=== PATIENT | male | born 1945 | race Caucasian/White ===

== ENCOUNTER 2016-12-14 17:03 | Inpatient (IN) ==
--- NOTE | 2016-12-14 18:14 | Hospitalist History & Physical ---
Assessment and Plan (1) Anemia Status: Acute Assessment and plan: H/H stable at the time of presentation at 10.5/32.0; this may trend down. We obtain serial H/H; may transfuse if needed. Current Visit: No Qualifiers: Anemia type: unspecified type Qualified Code(s): D64.9 - Anemia, unspecified (2) DVT prophylaxis Status: Acute Assessment and plan: SCD's ordered. Current Visit: No (3) GI bleed Status: Acute Assessment and plan: Per patient report, this has happened in the past. This may be attributed to his diverticulitis or the use of Plavix. We will consult GI, start PPI's and hold NPO for further recommendations. Current Visit: No Qualifiers: GI bleed type/associated pathology: melena Qualified Code(s): K92.1 - Melena (4) Chronic renal insufficiency Status: Chronic Assessment and plan: BUN/Creatinine at 39/1.8 this is noted improvement from his previous numbers on 11/19 of 48/1.90. We will monitor. Current Visit: No Qualifiers: Chronic kidney disease stage: unspecified stage Qualified Code(s): N18.9 - Chronic kidney disease, unspecified (5) History of coronary artery bypass graft Status: Chronic Assessment and plan: The patient is currently on Plavix prophylactically; we will hold for now and consult cardiology to evaluate. Current Visit: No History of Present Illness Chief complaint: rectal bleeding History of present illness: This is a very pleasant 71 year old male that presented to the ED at [facility] as a lateral transfer from [facility] for evaluation of rectal bleeding. The patient has very complex medical history significant for cerebral vascular accident, congestive heart failure, coronary artery disease, dyslipidemia, myocardial infarction, chronic obstructive pulmonary disease, diverticulitis, gastrointestinal bleed, insulin-dependent diabetes mellitus, anemia, anxiety disorder,nicotine addition, and renal insufficiency. He has a surgical history cardiac stent placement, three- vessel saphenous bypass, and ORIF to the left hip. He presented to the ED at [facility] with a chief compliant of bloody stools X 3 days. The patient reports a recent start of Plavix three months ago after stent placement. He reports several incidents in nature in the past since the initiation of the Plavix and one episode of lower gastrointestinal bleed in which he had an EGD.Labs were obtained prior to transfer, which showed renal insufficiency with a BUN of 39 and creatinine of 1.8. Due the unavailability of GI services at there at the present time, the patient was transferred to [facility] for continuation of care. Rectal examination performed at the time of admission positive for the presence of blood. After brief discussion with both Dr. Pak and Dr. Leiva, the patient will be admitted to the hospitalist service for continuation of care. We will consult cardiology and gastroenterology to assist during the clinical encounter. Home Medications Medication Instructions Recorded Confirmed Type Carvedilol [Coreg] 3.125 mg PO BID #60 tablet 11/19/16 Rx Gabapentin Cap/Tab [Neurontin 100 mg PO TID #90 capsule 11/19/16 Rx Cap/Tab] Losartan [Cozaar] 25 mg PO BID #60 tablet 11/19/16 Rx hydrALAZINE TAB [Apresoline Tab] 25 mg PO BID #60 tablet 11/19/16 Rx Allergies Allergy/AdvReac Type Severity Reaction Status Date / Time No Known Allergies Allergy Verified 12/14/16 17:14 Medical,Surgical,& Family Hx - Medical History Cardio: History of: CHF, CAD, Hypertension, [place], Cardiovascular Problems (CABG) No history of: Pacemaker Psychological: History of: Anxiety Disorders (takes xanax for anxirty) Neurology: History of: Cerebrovascular Accident (2003), Dementia No history of: Brain Aneurysm, Seizures HEENT: History of: Ear Problem ([place] in right ear) Endocrine: History of: Diabetes Mellitus (IDDM), Diabetes Mellitus (NIDDM), Dyslipidemia No history of: Thyroid Disorder Rheumatology: History of;: Gout, Rheumatoid Arthritis, Rheumatological Problems (Arthritis) Respiratory: History of: COPD, Pneumonia, Respiratory Problems Renal: History of: Renal Problems (renal insufficiency ) Genitourinary: No history of: Kidney Stones Gastrointestinal: History of: Diverticulitis/ Diverticulosis, Gastrointestinal Bleed, Polyps Musculoskeletal: History of: Back/Neck Problems (constant discomfort), Musculoskeletal Problems No history of: Amputation Hematology: History of: Anemia No history of: Blood Transfusion Reaction - Surgical History Cardiac Surgeries: Sugical HX of: Cardiac Catheterization (6 STENTS), Cardiac Surgery (three-vessel saphenous vein bypass) Patient Denies: Carotid Endarterectomy Thoracic Surgeries: Patient denies;: Organ Transplant Neurologic Surgeries: Surgical HX of: Neurologic Surgery Patient denies: Brain Aneurysm HEENT Surgeries: Patient denies: Carotid Endarterectomy, Eye Surgery, Thyroid Surgery, Tonsilectomy & Adenoidectomy Abdominal Surgeries: Surgical HX of: Colonoscopy, EGD Patient denies: Abdominal Surgery, Appendectomy, Cholecystectomy, Gastric Bypass Surgery, Hernia Repair Reproductive Surgeries: Patient denies;: Genitourinary Surgery Orthopedic Surgeries: Surgical HX of;: Orthopedic Surgery (LEFT hip fx) - Family History Family History: Reports;: Family Cancer (Sister (cervical) Brother (prostate)), Family Diabetes (Mother, Father, Brother), Family Heart Disease (Mother, Father , Brother, Sister), Family Hypertension (Mother, Father, Brother, Sister), Family Stroke (Brother) Denies;: Family Anesthesia Reaction, Family Psychiatric Problems - Social History Smoking Status: Current every day smoker Frequency of Alcohol Use: None Type of Drug Use: None 12 point system: reviewed and no additional remarkable complaints except as stated Exam - Constitutional Vitals: Period Temp Pulse Resp BP Sys/Leigh Pulse Ox Last 24 Hr 97.6 F-97.6 F 60-60 18-18 138-138/63-63 98 General appearance: normal weight, no acute distress - Head Head exam: Present: normal inspection, normocephalic, atraumatic - Eye Eye exam: Present: EOMI. Absent: conjunctival injection, nystagmus Pupils: Present: TRACEY, normal accommodation - ENT ENT exam: Present: normal exam, normal external ear exam, normal oropharynx - Neck Neck exam: Present: normal inspection. Absent: lymphadenopathy, meningismus, tenderness, thyromegaly - Respiratory Respiratory exam: Present: clear to auscultation bilaterally. Absent: rales, rhonchi, stridor, wheezes - Cardiovascular Cardiovascular exam: Present: bradycardia, regular rate and rhythm. Absent: carotid bruit, diastolic murmur, gallop, JVD, rubs, systolic murmur - GI/Abdominal GI/Abdominal exam: Present: normal bowel sounds, tenderness (lower quadrants bilaterally) - Extremities Exam Extremities exam: Present: normal inspection, normal capillary refill, full ROM. Absent: edema - Back Exam Back exam: Present: normal inspection - Neurological Exam Neurological exam: Present: alert, oriented X3, CN II-XII intact - Psychiatric Psychiatric exam: Present: normal affect, normal mood - Skin Skin exam: Present: normal color, warm, dry
--- NOTE | 2016-12-14 18:14 | Emergency Department Note ---
IManohar Sierra, am scribing for, and in the presence of, Romel Pak MD 17:53. Mellisa Roy Charles R, MD, personally performed the services described in this documentation, ascribed by Karen Villela in my presence, and it is both accurate and complete 813 . Arrival - Arrival Chief Complaint: GI Bleed/Rectal Stated Complaint: TRANSFER FROM [facility] ED Nursing Triage Note: PT TRANSFERRED FROM [facility] FOR FURTHER EVAULATION OF RECTAL BLEEDING. PT C/O BRIGHT RED RECTAL BLEEDING X 3 DAYS WITH MID ABD PAIN. PT TAKES PLAVIX. Mode of Arrival: Stretcher Limitations: No Limitations Source: Patient Time Seen by Provider: 12/14/16 17:27 - History of Present Illness HPI Narrative: Pt is a 71 y/o male that was transferred to the ED via EMS from [facility] for further evaluation of rectal bleeding that has been going on for 4 days. Pt has associated sxs of SOB, light headed, and bilateral lower quadrant abdominal pain but denies weakness. Pt describes the bleeding as bright red in appearance. Pt reports he has had rectal bleeding before and has had a GI scope. Pt denies having an x-ray at [facility]. Pt is currently on Plavix. Pt states he does still has his appendix. No other complaints/pain in ED. Onset (ago): day(s) Consistency: constant Severity: mild, moderate Severity scale (1-10): 4 Quality: other Allergies/Adverse Reactions: Allergies Allergy/AdvReac Type Severity Reaction Status Date / Time No Known Allergies Allergy Verified 12/14/16 17:14 Home Medications: Home Medications Medication Instructions Recorded Confirmed Type ALPRAZolam [Xanax] 1 mg PO TID 11/07/14 11/15/16 History Cyclobenzaprine [Flexeril] 10 mg PO TID 11/07/14 11/15/16 History Docusate Sodium Cap [Colace Cap] 100 mg PO DAILY 11/07/14 11/15/16 History Ferrous Sulfate Tab [Feosol 325 mg PO TID 11/07/14 11/15/16 History Original Tab] Furosemide 40 mg PO DAILY 11/07/14 11/15/16 History Insulin Glargine [Lantus] 20 unit SUBCUT BEDTIME 11/07/14 11/15/16 History Potassium Chloride Cap/Tab [K Dur] 20 meq PO DAILY 11/07/14 11/15/16 History Rosuvastatin [Crestor] 20 mg PO DAILY 11/07/14 11/15/16 History Zolpidem Tartrate [Ambien] 10 mg PO BEDTIME PRN 11/07/14 11/15/16 History Clopidogrel [Plavix] 75 mg PO DAILY #30 tablet 11/11/14 11/15/16 Rx Carvedilol [Coreg] 12.5 mg PO BID #60 tablet 08/23/16 11/15/16 Rx amLODIPine [Norvasc] 10 mg PO DAILY #30 tablet 08/23/16 11/15/16 Rx HYDROcodone/ACETAMIN 10-325 [[place] 1 tablet PO Q6HR PRN 11/03/16 11/15/16 History 10-325] Pantoprazole Tab [Protonix Tab] 40 mg PO DAILY 11/03/16 11/15/16 History Theophylline ER Tab 300 mg PO BID 11/03/16 11/15/16 History Albuterol Sulfate [Ventolin HFA] 2 puff INH Q4H PRN 11/07/16 11/15/16 History Albuterol/Ipratropium Neb [Duoneb] 3 ml RESP TX RT Q4H PRN 11/07/16 11/15/16 History Carvedilol [Coreg] 3.125 mg PO BID #60 tablet 11/19/16 Rx Gabapentin Cap/Tab [Neurontin 100 mg PO TID #90 capsule 11/19/16 Rx Cap/Tab] Losartan [Cozaar] 25 mg PO BID #60 tablet 11/19/16 Rx hydrALAZINE TAB [Apresoline Tab] 25 mg PO BID #60 tablet 11/19/16 Rx Review of System - Review of System 12 point system: reviewed and no additional remarkable complaints except as stated - Review of System Constitutional: Present: other (light headed). Absent: chills, fever, weakness Respiratory: Present: other (SOB). Absent: cough Cardiovascular: Absent: chest pain Gastrointestinal: Present: abdominal pain (bilateral lower quadrant abdominal pain), hematochezia. Absent: nausea, vomiting Musculoskeletal: Absent: arm pain, back pain, leg pain, neck pain Skin: Absent: rash Neurological: Absent: headache Psychiatric: Absent: anxiety Medical,Surgical,& Family Hx - Medical History Cardio: History of: CHF, CAD, Hypertension, ND, Cardiovascular Problems (CABG) No history of: Pacemaker Psychological: History of: Anxiety Disorders Neurology: History of: Cerebrovascular Accident (2004), Dementia No history of: Brain Aneurysm, Seizures HEENT: History of: Ear Problem ([place] in right ear) Endocrine: History of: Diabetes Mellitus (IDDM), Diabetes Mellitus (NIDDM), Dyslipidemia No history of: Thyroid Disorder Rheumatology: History of;: Gout, Rheumatoid Arthritis, Rheumatological Problems (Arthritis) Respiratory: History of: COPD, Pneumonia, Respiratory Problems Renal: History of: Renal Problems (renal insufficiency ) Genitourinary: No history of: Kidney Stones Gastrointestinal: History of: Diverticulitis/ Diverticulosis, Gastrointestinal Bleed, Polyps Musculoskeletal: History of: Back/Neck Problems (constant discomfort), Musculoskeletal Problems No history of: Amputation Hematology: History of: Anemia No history of: Blood Transfusion Reaction - Surgical History Cardiac Surgeries: Sugical HX of: Cardiac Catheterization (6 STENTS), Cardiac Surgery (three-vessel saphenous vein bypass) Patient Denies: Carotid Endarterectomy Thoracic Surgeries: Patient denies;: Organ Transplant Neurologic Surgeries: Surgical HX of: Neurologic Surgery Patient denies: Brain Aneurysm HEENT Surgeries: Patient denies: Carotid Endarterectomy, Eye Surgery, Thyroid Surgery, Tonsilectomy & Adenoidectomy Abdominal Surgeries: Surgical HX of: Colonoscopy, EGD Patient denies: Abdominal Surgery, Appendectomy, Cholecystectomy, Gastric Bypass Surgery, Hernia Repair Reproductive Surgeries: Patient denies;: Genitourinary Surgery Orthopedic Surgeries: Surgical HX of;: Orthopedic Surgery (LEFT hip fx) - Family History Family History: Reports;: Family Cancer (Sister (cervical) Brother (prostate)), Family Diabetes (Mother, Father, Brother), Family Heart Disease (Mother, Father , Brother, Sister), Family Hypertension (Mother, Father, Brother, Sister), Family Stroke (Brother) Denies;: Family Anesthesia Reaction, Family Psychiatric Problems - Social History Smoking Status: Current every day smoker Frequency of Alcohol Use: None Type of Drug Use: None Exam Vital Signs: Vital Signs Temperature 97.6 F 12/14/16 17:03 Pulse Rate 60 12/14/16 17:03 Respiratory Rate 18 12/14/16 17:03 Blood Pressure 138/63 12/14/16 17:03 O2 Sat by Pulse Oximetry 98 12/14/16 17:03 - General General appearance: alert, in no apparent distress - Head Head exam: Present: atraumatic, normocephalic - Eye Eye exam: Present: PERRL, EOMI - ENT ENT exam: Present: mucous membranes moist. Absent: mucous membranes dry - Neck Neck exam: Present: full ROM. Absent: tenderness - Chest Chest inspection: Present: symmetric chest wall rise. Absent: tenderness - Respiratory Respiratory exam: Present: normal lung sounds bilaterally. Absent: respiratory distress - Cardiovascular Cardiovascular exam: Present: regular rate, normal rhythm, normal heart sounds - Abdominal Exam Abdominal exam: Present: soft, tenderness (bilateral lower quadrant tenderness) , diminished bowel sounds - Rectal Exam Rectal exam: Present: heme (+) stool - Extremities Exam Extremities exam: Present: full ROM. Absent: tenderness - Back Exam Back exam: Present: full ROM. Absent: tenderness - Neurological Exam Neurological exam: Present: alert, oriented X3, CN II-XII intact. Absent: motor sensory deficit - Psychiatric Psychiatric exam: Present: normal affect, normal mood - Skin Skin exam: Present: warm, dry Course - Consultations Consultation #1: Hospitalist will admit patient Time: 18:20 Results - Labs Lab Results: I have reviewed the patients labs Labs: All results from previous facility reviewed Disposition Clinical Impression: Lower gastrointestinal hemorrhage, Acute blood loss anemia, Abdominal pain Case discussed with: patient Disposition: Still a Patient Condition: Stable Time of Disposition: 18:21
[2016-12-14] MEDS ORDERED: ALBUTEROL 2.5 MG/3 ML NEB RESP TX PRN (19:00)
[2016-12-14] MEDS ORDERED: ALBUTEROL/IPRATROPIUM 3 ML NEB RESP TX PRN (19:00)
[2016-12-14 20:46] LABS: PT Patient Result 11.1 SECS
[2016-12-14] MEDS: SODIUM CHLORIDE 0.9% 1,000 ML IV SCH (20:48)
[2016-12-14] MEDS: INSULIN GLARGINE 100 UNIT/ML SUBCUT SCH (20:57)
[2016-12-14] MEDS: hydrALAZINE 25 MG TABLET PO SCH (20:57)
[2016-12-14] MEDS: THEOPHYLLINE ER 300 MG TABLET PO SCH (20:57)
[2016-12-14] MEDS: GABAPENTIN 100 MG CAPSULE PO SCH (20:57)
[2016-12-14] MEDS: ALPRAZolam 0.5 MG TABLET PO SCH (20:57)
[2016-12-14] MEDS: CARVEDILOL 3.125 MG TABLET PO SCH (20:57)
[2016-12-14] MEDS ORDERED: ZALEPLON 5 MG CAPSULE PO PRN (21:00)
[2016-12-14] MEDS: PANTOPRAZOLE INJ 200 MG in SODIUM CHLORIDE 0.9% 250 ML IV SCH (22:49)
[2016-12-15 07:36] LABS: Basophils # 0.1 10*3/uL (0.0-0.2); Eosinophils # 0.5 10*3/uL (0.0-0.87); Hematocrit 33.1 VOL% (42.0-52.0); Hemoglobin 10.8 GM/DL (14.0-18.0); Immature Granulocytes % 0.6 %; Immature Granulocytes Absolute 0.03 #; Lymphocytes # 1.1 10*3/uL (1.4-4.0); Lymphocytes % 21.8 % (21.2-54.2); Mean Corpuscular HGB Conc 32.6 GM/DL (32-36); Mean Corpuscular Hemoglobin 29 PG (27-34); Mean Corpuscular Volume 88.3 FL (87-102); Mean Platelet Volume 9.7 FL (9.6-12.0); Monocytes # 0.4 10*3/uL (0.11-0.8); Monocytes % 8.4 % (1.7-12.7); Neutrophils # 3.1 10*3/uL (1.4-7.4); Neutrophils % 59.2 % (38.7-73.9); Platelet Count 150 T/CUMM (130-400); Red Blood Count 3.75 MC/CUMM (3.8-5.5); White Blood Count 5.2 T/CUMM (4-12)
[2016-12-15 08:14] LABS: Albumin 2.9 G/DL (3.4-5.0); Bilirubin,Total 0.6 MG/DL (0.2-1.0); Calcium 8.3 MG/DL (8.5-10.1); Magnesium 2.3 MG/DL (1.8-2.4); Osmolality,Calculated 293.8 MOS/KG (273-304); Phosphorous 3.3 MG/DL (2.5-4.9); Potassium 4.3 MMOL/L (3.5-5.1); Total Protein 5.9 G/DL (6.4-8.3)
[2016-12-15] MEDS: MONTELUKAST 10 MG TABLET PO SCH (08:44)
[2016-12-15] MEDS: POTASSIUM CHLORIDE 20 MEQ TABLET PO SCH (08:44)
[2016-12-15] MEDS: CARVEDILOL 3.125 MG TABLET PO SCH ×2 (08:44→21:06)
[2016-12-15] MEDS: THEOPHYLLINE ER 300 MG TABLET PO SCH ×2 (08:44→21:06)
[2016-12-15] MEDS: ALPRAZolam 0.5 MG TABLET PO SCH ×3 (08:44→21:06)
[2016-12-15] MEDS: amLODIPine 10 MG TABLET PO SCH (08:44)
[2016-12-15] MEDS: DOCUSATE SODIUM 100 MG CAPSULE PO SCH (08:44)
[2016-12-15] MEDS: hydrALAZINE 25 MG TABLET PO SCH ×2 (08:44→21:06)
[2016-12-15] MEDS: ROSUVASTATIN 20 MG TABLET PO SCH (08:44)
[2016-12-15] MEDS: GABAPENTIN 100 MG CAPSULE PO SCH ×3 (08:44→21:06)
[2016-12-15] MEDS ORDERED: NON-FORMULARY MEDICATION (Tiotropium Br/Olodaterol Hcl [Stiolto Respimat Inhal Spray] 2 PU INH SCH (09:00)
[2016-12-15] MEDS ORDERED: PANTOPRAZOLE 40 MG TABLET PO SCH (09:00)
--- NOTE | 2016-12-15 09:08 | Gastrointestinal Consult Note ---
<Letty Bryson - Last Filed: 12/15/16 08:59> Assessment and Plan (1) Lower gastrointestinal hemorrhage Status: Acute Assessment and plan: 12/15-5 day history of bright red bleeding with clots with associated abdominal cramping. History of recent stent placement in the last several months on Plavix therapy. Hemoglobin stable at 10.8. History of diverticulosis noted on endoscopy in 2010. Monitor serial H&H. Transfuse as necessary. Plan an addendum to follow by Dr. Murillo. Current Visit: Yes History of Present Illness Chief complaint: Rectal bleeding History of present illness: Mr. Quintana is a 71 year old male who was admitted to the hospital far onset of rectal bleeding 5 days ago. Patient has a history of CVA in the past and has some expressive aphasia. He also has a history of CHF, CAD, ND, COPD, DM, anemia, and renal insufficiency. He is a fair historian as well. Information is obtained from chart review as well as patient interview. Patient presented to [facility] ER on yesterday for evaluation of rectal bleeding. He states that the bleeding started suddenly 5 days ago and was associated with some abdominal cramping. He denies any abdominal pain in between bowel movements. Patient states he has had 2-3 episodes daily since onset. He reports bright red bleeding mixed in with dark clots with his bowel movements. He denies any nausea or vomiting. Denies any fever or chills. States he has lost 5 pounds over the last several weeks. He is noted to have cardiac stents placed in July of this year by Dr. ellis. Patient had been on Plavix prior to this for stents placed also in October 2014. Patient underwent EGD last month by Dr. Murillo with findings of AVMs, GERD and esophageal stricture without dilation. He is last colonoscopy was noted to be in December 2012 with a fair to poor prep however no large polyps or mass lesions seen at that time and this was followed by a small bowel follow-through with no acute findings noted the and as well. He is noted to have had a flexible sigmoidoscopy in 2010 with findings of sigmoid descending diverticulosis. Documentation in facility database shows patient has a history of lower GI bleeding despite patient denying this. On admission his hemoglobin started at 10.8. His discharge hemoglobin last month was noted at 11.8. Home Medications Medication Instructions Recorded Confirmed Type ALPRAZolam [Xanax] 1 mg PO TID 11/07/14 12/14/16 History Cyclobenzaprine [Flexeril] 10 mg PO TID 11/07/14 12/14/16 History Docusate Sodium Cap [Colace Cap] 100 mg PO DAILY 11/07/14 12/14/16 History Ferrous Sulfate Tab [Feosol 325 mg PO TID 11/07/14 12/14/16 History Original Tab] Furosemide 40 mg PO DAILY 11/07/14 12/14/16 History Insulin Glargine [Lantus] 20 unit SUBCUT BEDTIME 11/07/14 12/14/16 History Rosuvastatin [Crestor] 20 mg PO DAILY 11/07/14 12/14/16 History Zolpidem Tartrate [Ambien] 10 mg PO BEDTIME PRN 11/07/14 12/14/16 History Clopidogrel [Plavix] 75 mg PO DAILY #30 tablet 11/11/14 12/14/16 Rx amLODIPine [Norvasc] 10 mg PO DAILY #30 tablet 08/23/16 12/14/16 Rx HYDROcodone/ACETAMIN 10-325 [[place] 1 tablet PO Q6HR PRN 11/03/16 12/14/16 History 10-325] Pantoprazole Tab [Protonix Tab] 40 mg PO DAILY 11/03/16 12/14/16 History Theophylline ER Tab 300 mg PO BID 11/03/16 12/14/16 History Albuterol Sulfate [Ventolin HFA] 2 puff INH Q4H PRN 11/07/16 12/14/16 History Albuterol/Ipratropium Neb [Duoneb] 3 ml RESP TX RT Q4H PRN 11/07/16 12/14/16 History Carvedilol [Coreg] 3.125 mg PO BID #60 tablet 11/19/16 12/14/16 Rx Gabapentin Cap/Tab [Neurontin 100 mg PO TID #90 capsule 11/19/16 12/14/16 Rx Cap/Tab] Losartan [Cozaar] 25 mg PO BID #60 tablet 11/19/16 12/14/16 Rx hydrALAZINE TAB [Apresoline Tab] 25 mg PO BID #60 tablet 11/19/16 12/14/16 Rx Montelukast Sodium 10 mg PO DAILY 12/14/16 12/14/16 History Potassium Chloride 20 meq PO DAILY 12/14/16 12/14/16 History Tiotropium Br/Olodaterol HCl 2 puffs INH DAILY 12/14/16 12/14/16 History [Stiolto Respimat Inhal [place]] Allergies Allergy/AdvReac Type Severity Reaction Status Date / Time No Known Allergies Allergy Verified 12/14/16 17:14 Medical,Surgical,& Family Hx - Medical History Cardio: History of: CHF, CAD, Hypertension, ND, Cardiovascular Problems (CABG) No history of: Pacemaker Psychological: History of: Anxiety Disorders (takes xanax for anxirty) Neurology: History of: Cerebrovascular Accident (2003), Dementia No history of: Brain Aneurysm, Seizures HEENT: History of: Ear Problem ([place] in right ear) Endocrine: History of: Diabetes Mellitus (IDDM), Diabetes Mellitus (NIDDM), Dyslipidemia No history of: Thyroid Disorder Rheumatology: History of;: Gout, Rheumatoid Arthritis, Rheumatological Problems (Arthritis) Respiratory: History of: COPD, Pneumonia, Respiratory Problems Renal: History of: Renal Problems (renal insufficiency ) Genitourinary: No history of: Kidney Stones Gastrointestinal: History of: Diverticulitis/ Diverticulosis, Gastrointestinal Bleed, Polyps Musculoskeletal: History of: Back/Neck Problems (constant discomfort), Musculoskeletal Problems No history of: Amputation Hematology: History of: Anemia No history of: Blood Transfusion Reaction - Surgical History Cardiac Surgeries: Sugical HX of: Cardiac Catheterization (6 STENTS), Cardiac Surgery (three-vessel saphenous vein bypass) Patient Denies: Carotid Endarterectomy Thoracic Surgeries: Patient denies;: Organ Transplant Neurologic Surgeries: Surgical HX of: Neurologic Surgery Patient denies: Brain Aneurysm HEENT Surgeries: Patient denies: Carotid Endarterectomy, Eye Surgery, Thyroid Surgery, Tonsilectomy & Adenoidectomy Abdominal Surgeries: Surgical HX of: Colonoscopy, EGD Patient denies: Abdominal Surgery, Appendectomy, Cholecystectomy, Gastric Bypass Surgery, Hernia Repair Reproductive Surgeries: Patient denies;: Genitourinary Surgery Orthopedic Surgeries: Surgical HX of;: Orthopedic Surgery (LEFT hip fx) - Family History Family History: Reports;: Family Cancer (Sister (cervical) Brother (prostate)), Family Diabetes (Mother, Father, Brother), Family Heart Disease (Mother, Father , Brother, Sister), Family Hypertension (Mother, Father, Brother, Sister), Family Stroke (Brother) Denies;: Family Anesthesia Reaction, Family Psychiatric Problems - Social History Smoking Status: Current every day smoker Frequency of Alcohol Use: None Type of Drug Use: None 12 point system: reviewed and no additional remarkable complaints except as stated - Constitutional Constitutional: Present: as per HPI, weight loss - EENT Eyes: Present: as per HPI Ears: Present: as per HPI Nose, mouth and throat: Present: as per HPI - Cardiovascular Cardiovascular: Present: as per HPI - Respiratory Respiratory: Present: as per HPI - Gastrointestinal Gastrointestinal: Present: as per HPI, abdominal pain, cramping, hematochezia - Genitourinary Genitourinary: Present: as per HPI - Musculoskeletal Musculoskeletal: Present: as per HPI - Neurological Neurological: Present: as per HPI - Psychiatric Psychiatric: Present: as per HPI - Endocrine Endocrine: Present: as per HPI - Hematologic/Lymphatic Hematologic/Lymphatic: Present: as per HPI Exam - Constitutional Vitals: Period Temp Pulse Resp BP Sys/Leigh Pulse Ox Last 24 Hr 98.2 F-98.8 F 63-84 18-20 117-188/50-76 94-100 General appearance: normal weight, no acute distress - Head Head exam: Present: normal inspection, normocephalic - Eye Eye exam: Present: other (Lids and conjunctivae unremarkable). Absent: scleral icterus - ENT ENT exam: Present: normal exam, normal oropharynx - Neck Neck exam: Present: normal inspection - Respiratory Respiratory exam: Present: clear to auscultation bilaterally. Absent: rales, rhonchi, wheezes - Cardiovascular Cardiovascular exam: Present: regular rate and rhythm. Absent: diastolic murmur , JVD, systolic murmur - GI/Abdominal GI/Abdominal exam: Present: normal bowel sounds, soft. Absent: ascites, distended, mass, organomegaly, tenderness - Extremities Exam Extremities exam: Present: normal inspection, full ROM - Back Exam Back exam: Present: normal inspection - Neurological Exam Neurological exam: Present: alert, oriented X3 - Psychiatric Psychiatric exam: Present: normal affect, normal mood - Skin Skin exam: Present: normal color, warm, dry Results - Labs CBC & BMP: 12/15/16 06:26 12/15/16 06:26 Lab Results: I have reviewed the past 24 hour labs Quality Measures - VTE Contraindication to Pharmacological VTE Prophylaxis: Active Bleeding <Toni Murillo - Last Filed: 12/15/16 12:57> History of Present Illness History of present illness: Mr. Quintana is a 71 year old male Exam - Constitutional Vitals: Period Temp Pulse Resp BP Sys/Leigh Pulse Ox Last 24 Hr 97.5 F-98.8 F 62-84 18-20 113-188/50-76 94-100 Results - Labs CBC & BMP: 12/15/16 06:26 12/15/16 06:26
--- NOTE | 2016-12-15 09:50 | Cardiology Consult Note ---
History of Present Illness - Data of Consult Patient: known to practice within the last 3 years - Consult Narrative History of present illness: Cardiology consult 71-year-old man admitted with several days of rectal bleeding with clots. Hemoglobin 10.8 hematocrit 33.1. The patient was hospitalized November 13, 2016 with atypical chest pain. On discharge November 20 his hemoglobin was 11.8 hematocrit 34.8 MCV 91. Patient underwent EGD November 13, [address] 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 The patient status post mid RCA stent August 17, [address] Jama and is taking aspirin 81 mg daily and Plavix 75 mg daily. The patient is status post three-vessel CABG in [facility] in 1998 with a ELIAS graft to the LAD, vein graft to right coronary and a vein graft to the obtuse marginal branch. His last cardiac cath August 17, 2016 showed patent ELIAS graft to LAD, occluded vein graft to right coronary, patent vein graft to OM branch with several stents. Ejection fraction was 55% with 2-3+ MR. The patient does have chronic dyspnea. He is an active smoker and has been stroke at age 17. He is status post stroke in 2003. He does have an expressive aphasia and some residual right arm weakness. The old chart reports a seizure disorder but he takes no antiseizure medication at this time. He does have chronic hypertension takes Norvasc 10 mg daily and Coreg 3.125 mg twice daily. Also has hyperlipidemia and takes Crestor 40 mg daily. He does have chronic pain and uses Flexeril 10 mg 3 times daily and gabapentin 100 mg 3 times daily. He also has GE reflux and uses Protonix 40 mg daily. He had a colonoscopy in 2010 which showed diverticulosis only. The patient has COPD and takes theophylline and nebs. He also has mild chronic renal insufficiency. Creatinine 1.30 BUN 31 today. He does not drink alcohol. The patient is a diabetic and takes Lantus insulin 20 units at bedtime. Lab data today hemoglobin 10.8 hematocrit 33.1 MCV 88 Sodium 144 potassium 4.3 chloride 112 CO2 22 BUN 31 creatinine 1.30 Glucose 133 magnesium 2.3 hemoglobin A1c level 5.7 Blood pressure 130/82 pulse 76 and regular bilateral arcus. The patient is edentulous and did not bring his dentures to the hospital. He does have expressive aphasia. He also has some right arm hemiparesis. Decreased breath sounds but no wheezing or rhonchi. Regular rhythm but distant heart tones. No chest wall tenderness. Abdomen soft benign. Femoral pulses are 2+ with faint bilateral bruits distal pulses are 2+ no edema. Impression Rectal bleeding while on Plavix. Hemoglobin today is 10.8 MCV 88. Hemoglobin 11.8 on discharge November 20, 2016 Status post mid RCA stent August 17, 2016 on aspirin 81 mg daily and Plavix 75 g daily Status post three-vessel CABG [facility] 1998 Last cath July 2016 showed patent ELIAS graft to LAD, occluded vein graft to right coronary, occluded vein graft to OM with patent stents. Ejection fraction 55% with 2-3+ MR. Active smoker Chronic dyspnea COPD Hyperlipidemia Insulin diabetic Diverticulosis by colonoscopy 2010 Last EGD November 13, 2016 showed moderate size hiatal hernia, AVMs in the antrum without bleeding and a distal esophageal stricture which was not dilated. Plan DC Plavix Follow H&H Patient is hemodynamically compensated. No smoking encouraged CC: Bladimir York MD - Home Medications and Allergies Home Medications: Home Medications Medication Instructions Recorded Confirmed Type ALPRAZolam [Xanax] 1 mg PO TID 11/07/14 12/14/16 History Cyclobenzaprine [Flexeril] 10 mg PO TID 11/07/14 12/14/16 History Docusate Sodium Cap [Colace Cap] 100 mg PO DAILY 11/07/14 12/14/16 History Ferrous Sulfate Tab [Feosol 325 mg PO TID 11/07/14 12/14/16 History Original Tab] Furosemide 40 mg PO DAILY 11/07/14 12/14/16 History Insulin Glargine [Lantus] 20 unit SUBCUT BEDTIME 11/07/14 12/14/16 History Rosuvastatin [Crestor] 20 mg PO DAILY 11/07/14 12/14/16 History Zolpidem Tartrate [Ambien] 10 mg PO BEDTIME PRN 11/07/14 12/14/16 History Clopidogrel [Plavix] 75 mg PO DAILY #30 tablet 11/11/14 12/14/16 Rx amLODIPine [Norvasc] 10 mg PO DAILY #30 tablet 08/23/16 12/14/16 Rx HYDROcodone/ACETAMIN 10-325 [[place] 1 tablet PO Q6HR PRN 11/03/16 12/14/16 History 10-325] Pantoprazole Tab [Protonix Tab] 40 mg PO DAILY 11/03/16 12/14/16 History Theophylline ER Tab 300 mg PO BID 11/03/16 12/14/16 History Albuterol Sulfate [Ventolin HFA] 2 puff INH Q4H PRN 11/07/16 12/14/16 History Albuterol/Ipratropium Neb [Duoneb] 3 ml RESP TX RT Q4H PRN 11/07/16 12/14/16 History Carvedilol [Coreg] 3.125 mg PO BID #60 tablet 11/19/16 12/14/16 Rx Gabapentin Cap/Tab [Neurontin 100 mg PO TID #90 capsule 11/19/16 12/14/16 Rx Cap/Tab] Losartan [Cozaar] 25 mg PO BID #60 tablet 11/19/16 12/14/16 Rx hydrALAZINE TAB [Apresoline Tab] 25 mg PO BID #60 tablet 11/19/16 12/14/16 Rx Montelukast Sodium 10 mg PO DAILY 12/14/16 12/14/16 History Potassium Chloride 20 meq PO DAILY 12/14/16 12/14/16 History Tiotropium Br/Olodaterol HCl 2 puffs INH DAILY 12/14/16 12/14/16 History [Stiolto Respimat Inhal [place]] Allergies/Adverse Reactions: Allergies Allergy/AdvReac Type Severity Reaction Status Date / Time No Known Allergies Allergy Verified 12/14/16 17:14 Medical,Surgical,& Family Hx - Medical History Cardio: History of: CHF, CAD, Hypertension, MD, Cardiovascular Problems (CABG) No history of: Pacemaker Psychological: History of: Anxiety Disorders (takes xanax for anxirty) Neurology: History of: Cerebrovascular Accident (2003), Dementia No history of: Brain Aneurysm, Seizures HEENT: History of: Ear Problem (NENANA in right ear) Endocrine: History of: Diabetes Mellitus (IDDM), Diabetes Mellitus (NIDDM), Dyslipidemia No history of: Thyroid Disorder Rheumatology: History of;: Gout, Rheumatoid Arthritis, Rheumatological Problems (Arthritis) Respiratory: History of: COPD, Pneumonia, Respiratory Problems Renal: History of: Renal Problems (renal insufficiency ) Genitourinary: No history of: Kidney Stones Gastrointestinal: History of: Diverticulitis/ Diverticulosis, Gastrointestinal Bleed, Polyps Musculoskeletal: History of: Back/Neck Problems (constant discomfort), Musculoskeletal Problems No history of: Amputation Hematology: History of: Anemia No history of: Blood Transfusion Reaction - Surgical History Cardiac Surgeries: Sugical HX of: Cardiac Catheterization (6 STENTS), Cardiac Surgery (three-vessel saphenous vein bypass) Patient Denies: Carotid Endarterectomy Thoracic Surgeries: Patient denies;: Organ Transplant Neurologic Surgeries: Surgical HX of: Neurologic Surgery Patient denies: Brain Aneurysm HEENT Surgeries: Patient denies: Carotid Endarterectomy, Eye Surgery, Thyroid Surgery, Tonsilectomy & Adenoidectomy Abdominal Surgeries: Surgical HX of: Colonoscopy, EGD Patient denies: Abdominal Surgery, Appendectomy, Cholecystectomy, Gastric Bypass Surgery, Hernia Repair Reproductive Surgeries: Patient denies;: Genitourinary Surgery Orthopedic Surgeries: Surgical HX of;: Orthopedic Surgery (LEFT hip fx) - Family History Family History: Reports;: Family Cancer (Sister (cervical) Brother (prostate)), Family Diabetes (Mother, Father, Brother), Family Heart Disease (Mother, Father , Brother, Sister), Family Hypertension (Mother, Father, Brother, Sister), Family Stroke (Brother) Denies;: Family Anesthesia Reaction, Family Psychiatric Problems - Social History Smoking Status: Current every day smoker Frequency of Alcohol Use: None Type of Drug Use: None Physical Examination Vital Signs Temp Pulse Resp BP Pulse Ox 97.6 F 60 18 138/63 98 12/14/16 17:03 12/14/16 17:03 12/14/16 17:03 12/14/16 17:03 12/14/16 17:03 Result/EKG - Labs CBC & BMP: 12/15/16 06:26 12/15/16 06:26 Labs: Laboratory Results - last 24 hr 12/14/16 12/14/16 12/14/16 20:26 20:26 20:26 WBC RBC Hgb Hct MCV MCH MCHC RDW Plt Count MPV Neut % (Auto) Lymph % (Auto) [place] % (Auto) Eos % (Auto) Baso % (Auto) Neut # (Auto) Lymph # (Auto) [place] # (Auto) Eos # (Auto) Baso # (Auto) Immature Gran % Nucleated RBC % Immature Gran # Nucleated RBCs # INR 1.0 PT Patient/Control Mix 11.1 Circ Anticoag PTT Sodium Potassium Chloride Carbon Dioxide Anion Gap BUN Creatinine GFR Calculation BUN/Creatinine Ratio Glucose POC Glucose Hemoglobin A1c 5.7 Calculated Osmolality Calcium Phosphorus Magnesium Total Bilirubin AST ALT Alkaline Phosphatase Total Protein Albumin Globulin Albumin/Globulin Ratio Blood Type O POSITIVE Antibody Screen Negative 12/14/16 12/15/16 12/15/16 20:33 06:26 06:26 WBC 5.2 RBC 3.75 L Hgb 10.8 L Hct 33.1 L MCV 88.3 MCH 29 MCHC 32.6 RDW 13.0 Plt Count 150 MPV 9.7 Neut % (Auto) 59.2 Lymph % (Auto) 21.8 [place] % (Auto) 8.4 Eos % (Auto) 9.0 Baso % (Auto) 1.0 H Neut # (Auto) 3.1 Lymph # (Auto) 1.1 L [place] # (Auto) 0.4 Eos # (Auto) 0.5 Baso # (Auto) 0.1 Immature Gran % 0.6 Nucleated RBC % 0.0 Immature Gran # 0.03 Nucleated RBCs # 0.00 INR PT Patient/Control Mix Circ Anticoag PTT Sodium 144 Potassium 4.3 Chloride 112 H Carbon Dioxide 22 Anion Gap 14.3 BUN 31 H Creatinine 1.30 GFR Calculation 63 BUN/Creatinine Ratio 23.00 H Glucose 118 H POC Glucose 100 Hemoglobin A1c Calculated Osmolality 293.8 Calcium 8.3 L Phosphorus 3.3 Magnesium 2.3 Total Bilirubin 0.60 AST 11 ALT 17 Alkaline Phosphatase 86 Total Protein 5.9 L Albumin 2.9 L Globulin 3.0 Albumin/Globulin Ratio 0.9 L Blood Type Antibody Screen 12/15/16 12/15/16 06:26 07:32 WBC RBC Hgb Hct MCV MCH MCHC RDW Plt Count MPV Neut % (Auto) Lymph % (Auto) [place] % (Auto) Eos % (Auto) Baso % (Auto) Neut # (Auto) Lymph # (Auto) [place] # (Auto) Eos # (Auto) Baso # (Auto) Immature Gran % Nucleated RBC % Immature Gran # Nucleated RBCs # INR PT Patient/Control Mix Circ Anticoag PTT 30.6 Sodium Potassium Chloride Carbon Dioxide Anion Gap BUN Creatinine GFR Calculation BUN/Creatinine Ratio Glucose POC Glucose 133 H Hemoglobin A1c Calculated Osmolality Calcium Phosphorus Magnesium Total Bilirubin AST ALT Alkaline Phosphatase Total Protein Albumin Globulin Albumin/Globulin Ratio Blood Type Antibody Screen Quality Measures - VTE Contraindication to Pharmacological VTE Prophylaxis: Active Bleeding
--- NOTE | 2016-12-15 10:10 | EKG Report ---
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
[2016-12-15] MEDS: SODIUM CHLORIDE 0.9% 1,000 ML IV SCH (10:30)
--- NOTE | 2016-12-15 13:50 | Hospitalist Progress Note ---
Assessment and Plan (1) Lower GI bleed Status: Acute Assessment and plan: Patient will have GI evaluation pending cardiology clearance. Is not active bleeding at this time. He says had a bowel movement this morning that did not have any blood in it. However hematochezia with blood clots were documented in yesterday's note. Current Visit: Yes (2) COPD exacerbation Status: Chronic Assessment and plan: Continue home medications and observe patient respiratory status. Current Visit: No Hospitalist: Subjective Interval history: Patient has been seen interviewed and examined and chart has been reviewed. Mr. Quintana was transferred here yesterday from [facility] rectal bleeding his H&H has remained rather stable. Been found for GI evaluation been on clear liquids for that reason. He has a history of coronary artery disease myocardial infarction chronic obstructive pulmonary disease. Is consulted for cardiology for clearance. I am assuming care from the hospitalist point of view at this point Exam - Constitutional Vitals: Period Temp Pulse Resp BP Sys/Leigh Pulse Ox Last 24 Hr 97.5 F-98.8 F 62-84 18-20 113-188/50-76 94-100 General appearance: normal weight - Head Head exam: Present: normocephalic, atraumatic - Eye Eye exam: Present: EOMI Pupils: Present: TRACEY - ENT ENT exam: Present: normal exam, normal oropharynx - Neck Neck exam: Present: normal inspection - Respiratory Respiratory exam: Present: clear to auscultation bilaterally - Cardiovascular Cardiovascular exam: Present: other (Scale regular rhythm with occasional ectopy. A review of the monitor strips shows occasional APCs.) - GI/Abdominal GI/Abdominal exam: Present: normal bowel sounds, soft, other (There is no guarding no rebound) - Extremities Exam Extremities exam: Present: full ROM - Back Exam Back exam: Present: normal inspection - Neurological Exam Neurological exam: Present: alert, oriented X3, CN II-XII intact - Psychiatric Psychiatric exam: Present: normal affect, normal mood, other (Tends to have delayed re-correction of facts. This gentleman has a history of a stroke) - Skin Skin exam: Present: normal color, warm, dry Results - Labs CBC & BMP: 12/15/16 06:26 12/15/16 06:26 Lab Results: I have reviewed the past 24 hour labs Quality Measures - VTE Contraindication to Pharmacological VTE Prophylaxis: Active Bleeding
[2016-12-15] MEDS: INSULIN LISPRO 100 UNIT/ML SUBCUT SCH ×2 (17:47→21:07)
[2016-12-15] MEDS: INSULIN GLARGINE 100 UNIT/ML SUBCUT SCH (21:06)
[2016-12-15] MEDS: PANTOPRAZOLE INJ 200 MG in SODIUM CHLORIDE 0.9% 250 ML IV SCH (21:07)
[2016-12-16] MEDS: SODIUM CHLORIDE 0.9% 1,000 ML IV SCH ×2 (03:16→20:24)
[2016-12-16 04:56] LABS: Basophils % 0.9 % (0.0-0.8); Eosinophils # 0.4 10*3/uL (0.0-0.87); Eosinophils % 8.8 % (0.00-10.9); Hematocrit 29.3 VOL% (42.0-52.0); Hemoglobin 9.4 GM/DL (14.0-18.0); Immature Granulocytes % 0.5 %; Immature Granulocytes Absolute 0.02 #; Lymphocytes # 0.9 10*3/uL (1.4-4.0); Lymphocytes % 20.8 % (21.2-54.2); Mean Corpuscular HGB Conc 32.1 GM/DL (32-36); Mean Corpuscular Hemoglobin 29 PG (27-34); Mean Corpuscular Volume 89.9 FL (87-102); Mean Platelet Volume 9.7 FL (9.6-12.0); Monocytes # 0.3 10*3/uL (0.11-0.8); Monocytes % 7.9 % (1.7-12.7); Neutrophils # 2.7 10*3/uL (1.4-7.4); Neutrophils % 61.1 % (38.7-73.9); Platelet Count 132 T/CUMM (130-400); Red Blood Count 3.26 MC/CUMM (3.8-5.5); Red Cell Distribution Width 13.1 % (9.3-17.3); White Blood Count 4.3 T/CUMM (4-12)
[2016-12-16 05:36] LABS: Calcium 7.6 MG/DL (8.5-10.1); Magnesium 2.2 MG/DL (1.8-2.4); Osmolality,Calculated 293.8 MOS/KG (273-304); Potassium 4.1 MMOL/L (3.5-5.1)
[2016-12-16] MEDS: amLODIPine 10 MG TABLET PO SCH (08:26)
[2016-12-16] MEDS: DOCUSATE SODIUM 100 MG CAPSULE PO SCH (08:26)
[2016-12-16] MEDS: GABAPENTIN 100 MG CAPSULE PO SCH ×3 (08:26→20:23)
[2016-12-16] MEDS: ALPRAZolam 0.5 MG TABLET PO SCH ×3 (08:26→20:23)
[2016-12-16] MEDS: POTASSIUM CHLORIDE 20 MEQ TABLET PO SCH (08:26)
[2016-12-16] MEDS: THEOPHYLLINE ER 300 MG TABLET PO SCH ×2 (08:26→20:23)
[2016-12-16] MEDS: MONTELUKAST 10 MG TABLET PO SCH (08:26)
[2016-12-16] MEDS: CARVEDILOL 3.125 MG TABLET PO SCH ×2 (08:26→20:23)
[2016-12-16] MEDS: hydrALAZINE 25 MG TABLET PO SCH ×2 (08:26→20:23)
[2016-12-16] MEDS: ROSUVASTATIN 20 MG TABLET PO SCH (08:26)
[2016-12-16] MEDS: INSULIN LISPRO 100 UNIT/ML SUBCUT SCH ×4 (08:27→20:24)
--- NOTE | 2016-12-16 09:15 | Hospitalist Progress Note ---
Assessment and Plan (1) Anemia Status: Acute Assessment and plan: H/H stable at the time of presentation at 10.5/32.0; this may trend down. We obtain serial H/H; may transfuse if needed. 12/16-H/H at 9.4/29.3; slight decrease noted; will re-check in AM. Current Visit: No Qualifiers: Anemia type: unspecified type Qualified Code(s): D64.9 - Anemia, unspecified (2) DVT prophylaxis Status: Acute Assessment and plan: SCD's ordered. Current Visit: No (3) GI bleed Status: Acute Assessment and plan: Per patient report, this has happened in the past. This may be attributed to his diverticulitis or the use of Plavix. We will consult GI, start PPI's and hold NPO for further recommendations. 12/16-Seen per GI, plan to scope after patient has been off Plavix for a couple of days; continue PPI's as ordered. Current Visit: No Qualifiers: GI bleed type/associated pathology: melena Qualified Code(s): K92.1 - Melena (4) Chronic renal insufficiency Status: Chronic Assessment and plan: BUN/Creatinine at 39/1.8 this is noted improvement from his previous numbers on 11/19 of 48/1.90. We will monitor. 12/16-Improvement in renal function; BUN/Creatinine at 28/1.20. Will continue to monitor. Current Visit: No Qualifiers: Chronic kidney disease stage: unspecified stage Qualified Code(s): N18.9 - Chronic kidney disease, unspecified (5) History of coronary artery bypass graft Status: Chronic Assessment and plan: The patient is currently on Plavix prophylactically; we will hold for now and consult cardiology to evaluate. Current Visit: No Hospitalist: Subjective Interval history: Patient seen and examined. No significant overnight events. Plavix on hold; Colonscopy on next week. Exam - Constitutional Vitals: Period Temp Pulse Resp BP Sys/Leigh Pulse Ox Last 24 Hr 97.5 F-98.3 F 56-62 18-20 115-140/52-61 96-100 General appearance: normal weight, no acute distress, mild distress - Head Head exam: Present: normal inspection, normocephalic, atraumatic - Eye Eye exam: Present: EOMI, conjunctival injection Pupils: Present: TRACEY, normal accommodation - ENT ENT exam: Present: normal exam, normal external ear exam, normal oropharynx - Neck Neck exam: Present: normal inspection. Absent: lymphadenopathy, meningismus, tenderness, thyromegaly - Respiratory Respiratory exam: Present: clear to auscultation bilaterally. Absent: rales, rhonchi, stridor, wheezes - Cardiovascular Cardiovascular exam: Present: regular rate and rhythm. Absent: carotid bruit, diastolic murmur, gallop, JVD, rubs, systolic murmur - GI/Abdominal GI/Abdominal exam: Present: normal bowel sounds, tenderness - Extremities Exam Extremities exam: Present: normal inspection, normal capillary refill, full ROM - Back Exam Back exam: Present: normal inspection - Neurological Exam Neurological exam: Present: alert, oriented X3, CN II-XII intact - Psychiatric Psychiatric exam: Present: normal affect, normal mood - Skin Skin exam: Present: normal color, warm, dry Results - Labs CBC & BMP: 12/16/16 03:47 12/16/16 03:47 Lab Results: I have reviewed the past 24 hour labs Quality Measures - VTE Contraindication to Pharmacological VTE Prophylaxis: Active Bleeding
--- NOTE | 2016-12-16 11:03 | Cardiology Progress Note ---
Cardiology - PN: Subj Interval history: Cardiology note 71-year-old man admitted with rectal bleeding hemoglobin 10.8 hematocrit 33.1 on presentation. Hemoglobin 11.8 hematocrit 34.8 on discharge November 20, 2016. Hemoglobin 9.4 hematocrit 29.3 today. The patient status post mid RCA stent August 17, 2016 and has been on aspirin 81 mg daily and Plavix which has now been stopped. No abdominal pain. Blood pressure 120/70. O2 sat 96% room air. Regular rhythm no gallop. Chest is clear. Abdomen benign. No leg edema. Impression Rectal bleeding while on Plavix. Hemoglobin today 9.4 and hematocrit 29.3 Status post mid RCA stent August 17, 2016 on aspirin 81 mg daily and Plavix Status post three-vessel CABG [facility] 1998 Last cath July 2016 showed patent ELIAS graft to LAD, occluded vein graft to right coronary, and patent stent sites in the OM vein graft. Ejection fraction 55% with 2-3+ MR. Active smoker. Chronic dyspnea. Insulin diabetic. Hyperlipidemia. Diverticulosis by colonoscopy 2010. Last EGD November 13, 2016 showed moderate size hiatal hernia, AVMs in the antrum without bleeding and a distal esophageal stricture which was not dilated Plan Plavix discontinued GI evaluating Exam (Progress Note) - Constitutional Vitals: Period Temp Pulse Resp BP Sys/Leigh Pulse Ox Last 24 Hr 97.5 F-98.3 F 56-62 18-20 115-140/50-61 96-100 Result/EKG - Labs CBC & BMP: 12/16/16 03:47 12/16/16 03:47 Labs: Laboratory Results - last 24 hr 12/15/16 12/15/16 12/15/16 11:27 15:26 21:00 WBC RBC Hgb Hct MCV MCH MCHC RDW Plt Count MPV Neut % (Auto) Lymph % (Auto) [place] % (Auto) Eos % (Auto) Baso % (Auto) Neut # (Auto) Lymph # (Auto) [place] # (Auto) Eos # (Auto) Baso # (Auto) Immature Gran % Nucleated RBC % Immature Gran # Nucleated RBCs # Sodium Potassium Chloride Carbon Dioxide Anion Gap BUN Creatinine GFR Calculation BUN/Creatinine Ratio Glucose POC Glucose 216 H 145 H 188 H Calculated Osmolality Calcium Magnesium 12/16/16 12/16/16 12/16/16 03:47 03:47 07:05 WBC 4.3 RBC 3.26 L Hgb 9.4 L Hct 29.3 L MCV 89.9 MCH 29 MCHC 32.1 RDW 13.1 Plt Count 132 MPV 9.7 Neut % (Auto) 61.1 Lymph % (Auto) 20.8 L [place] % (Auto) 7.9 Eos % (Auto) 8.8 Baso % (Auto) 0.9 H Neut # (Auto) 2.7 Lymph # (Auto) 0.9 L [place] # (Auto) 0.3 Eos # (Auto) 0.4 Baso # (Auto) 0.0 Immature Gran % 0.5 Nucleated RBC % 0.0 Immature Gran # 0.02 Nucleated RBCs # 0.00 Sodium 144 Potassium 4.1 Chloride 112 H Carbon Dioxide 23 Anion Gap 13.1 BUN 25 H Creatinine 1.20 GFR Calculation 69 BUN/Creatinine Ratio 20.00 Glucose 167 H POC Glucose 112 H Calculated Osmolality 293.8 Calcium 7.6 L Magnesium 2.2 Quality Measures - VTE Contraindication to Pharmacological VTE Prophylaxis: Active Bleeding
[2016-12-16] MEDS: PANTOPRAZOLE INJ 200 MG in SODIUM CHLORIDE 0.9% 250 ML IV SCH (20:24)
[2016-12-16] MEDS: INSULIN GLARGINE 100 UNIT/ML SUBCUT SCH (20:25)
[2016-12-17] MEDS: SODIUM CHLORIDE 0.9% 1,000 ML IV SCH ×2 (03:40→21:06)
[2016-12-17 06:22] LABS: Basophils % 0.7 % (0.0-0.8); Eosinophils # 0.3 10*3/uL (0.0-0.87); Hematocrit 28.7 VOL% (42.0-52.0); Immature Granulocytes % 0.4 %; Immature Granulocytes Absolute 0.02 #; Lymphocytes # 0.8 10*3/uL (1.4-4.0); Mean Corpuscular HGB Conc 31.4 GM/DL (32-36); Mean Corpuscular Hemoglobin 28 PG (27-34); Mean Corpuscular Volume 90.3 FL (87-102); Mean Platelet Volume 9.1 FL (9.6-12.0); Monocytes # 0.4 10*3/uL (0.11-0.8); Monocytes % 7.6 % (1.7-12.7); Neutrophils # 3.1 10*3/uL (1.4-7.4); Neutrophils % 66.3 % (38.7-73.9); Platelet Count 109 T/CUMM (130-400); Red Blood Count 3.18 MC/CUMM (3.8-5.5); Red Cell Distribution Width 13.1 % (9.3-17.3); White Blood Count 4.6 T/CUMM (4-12)
[2016-12-17 06:50] LABS: Calcium 7.7 MG/DL (8.5-10.1); Osmolality,Calculated 293.6 MOS/KG (273-304); Potassium 4.3 MMOL/L (3.5-5.1)
--- NOTE | 2016-12-17 08:14 | Hospitalist Progress Note ---
Assessment and Plan (1) Anemia Status: Acute Assessment and plan: H/H stable at the time of presentation at 10.5/32.0; this may trend down. We obtain serial H/H; may transfuse if needed. 12/16-H/H at 9.4/29.3; slight decrease noted; will re-check in AM. 12/17-H/H at 9.0/28.7; slight decrease noted; however stable. Will re-check in AM. Current Visit: No Qualifiers: Anemia type: unspecified type Qualified Code(s): D64.9 - Anemia, unspecified (2) DVT prophylaxis Status: Acute Assessment and plan: SCD's ordered. Current Visit: No (3) GI bleed Status: Acute Assessment and plan: Per patient report, this has happened in the past. This may be attributed to his diverticulitis or the use of Plavix. We will consult GI, start PPI's and hold NPO for further recommendations. 12/16-Seen per GI, plan to scope after patient has been off Plavix for a couple of days; continue PPI's as ordered. 12/17-Continue PPI's; if no immediate plan for scope; will assess for possible discharge in AM with scope in the outpatient setting; if ok with GI. Current Visit: No Qualifiers: GI bleed type/associated pathology: melena Qualified Code(s): K92.1 - Melena (4) Chronic renal insufficiency Status: Chronic Assessment and plan: BUN/Creatinine at 39/1.8 this is noted improvement from his previous numbers on 11/19 of 48/1.90. We will monitor. 12/16-Improvement in renal function; BUN/Creatinine at 28/1.20. Will continue to monitor. 12/17-Renal function normalized; BUN/Creatinine 18/1.10. Will continue to monitor. Current Visit: No Qualifiers: Chronic kidney disease stage: unspecified stage Qualified Code(s): N18.9 - Chronic kidney disease, unspecified (5) History of coronary artery bypass graft Status: Chronic Assessment and plan: The patient is currently on Plavix prophylactically; we will hold for now and consult cardiology to evaluate. 12/17-Plavix discontinued per Cardiology. Current Visit: No Hospitalist: Subjective Interval history: Patient seen and examined; chart reviewed; no significant overnight events reported. Exam - Constitutional Vitals: Period Temp Pulse Resp BP Sys/Leigh Pulse Ox Last 24 Hr 97.2 F-98.6 F 53-75 12-20 117-150/51-67 95-100 General appearance: normal weight, no acute distress - Head Head exam: Present: normal inspection, normocephalic, atraumatic - Eye Eye exam: Present: EOMI. Absent: conjunctival injection Pupils: Present: TRACEY, normal accommodation - ENT ENT exam: Present: normal exam, normal external ear exam - Neck Neck exam: Present: normal inspection. Absent: lymphadenopathy, meningismus, thyromegaly - Respiratory Respiratory exam: Present: clear to auscultation bilaterally. Absent: rales, rhonchi, stridor, wheezes - Cardiovascular Cardiovascular exam: Present: regular rate and rhythm. Absent: carotid bruit, diastolic murmur, gallop, JVD, rubs, systolic murmur - GI/Abdominal GI/Abdominal exam: Present: normal bowel sounds, tenderness - Extremities Exam Extremities exam: Present: normal inspection, normal capillary refill, full ROM , calf tenderness. Absent: edema - Back Exam Back exam: Present: normal inspection - Neurological Exam Neurological exam: Present: alert, oriented X3, CN II-XII intact - Psychiatric Psychiatric exam: Present: normal affect, normal mood - Skin Skin exam: Present: normal color, warm, dry Results - Labs CBC & BMP: 12/17/16 06:11 12/17/16 06:11 Lab Results: I have reviewed the past 24 hour labs Quality Measures - VTE Contraindication to Pharmacological VTE Prophylaxis: Active Bleeding
[2016-12-17] MEDS: GABAPENTIN 100 MG CAPSULE PO SCH ×3 (08:39→21:04)
[2016-12-17] MEDS: MONTELUKAST 10 MG TABLET PO SCH (08:39)
[2016-12-17] MEDS: amLODIPine 10 MG TABLET PO SCH (08:39)
[2016-12-17] MEDS: POTASSIUM CHLORIDE 20 MEQ TABLET PO SCH (08:39)
[2016-12-17] MEDS: THEOPHYLLINE ER 300 MG TABLET PO SCH ×2 (08:39→21:04)
[2016-12-17] MEDS: ALPRAZolam 0.5 MG TABLET PO SCH ×3 (08:39→21:04)
[2016-12-17] MEDS: DOCUSATE SODIUM 100 MG CAPSULE PO SCH (08:40)
[2016-12-17] MEDS: INSULIN LISPRO 100 UNIT/ML SUBCUT SCH ×4 (08:40→21:05)
[2016-12-17] MEDS: ROSUVASTATIN 20 MG TABLET PO SCH (08:40)
[2016-12-17] MEDS: hydrALAZINE 25 MG TABLET PO SCH ×2 (08:40→21:04)
[2016-12-17] MEDS: CARVEDILOL 3.125 MG TABLET PO SCH ×2 (08:40→21:04)
--- NOTE | 2016-12-17 10:27 | Gastrointestinal Progress Note ---
Assessment and Plan - Time spent with patient Time spent with patient: Greater than 30 minutes (1) Lower gastrointestinal hemorrhage Status: Acute Current Visit: Yes (2) Other specified counseling Status: Acute Current Visit: Yes Exam (Progress Note) - Constitutional Vitals: Period Temp Pulse Resp BP Sys/Leigh Pulse Ox Last 24 Hr 97.2 F-98.6 F 53-75 12-20 117-150/51-67 95-100 Results - Labs CBC & BMP: 12/17/16 06:11 12/17/16 06:11 Note Addendum: PLEASE NOTE -- automatic citation of patient information is unavoidable in this electronic note. I have made a reasonable effort to review the information cited , but it is not a part of my evaluation, impression, or recommendation unless specifically discussed in the dictated text that follows. As well, voice recognition software was used in the creation of this clinical note. Reasonable effort was made to identify and correct gross errors. Despite proofreading, errors in supervisor publications may be present, including nonsense verbiage at times. If you encounter such an error, please contact me at for discussion and correction. -- Kaitlynn Chief complaint: hematochezia Subjective: the patient is a 71-year-old male seen for follow-up of hematochezia. One bowel movement is noted overnight with a small amount of bright red blood. Blood counts have trended down to 9.0 g/dL. The patient is not on anticoagulant or antiplatelet agent at present. He reports mild abdominal discomfort at the right lower quadrant. He is not having nausea, vomiting, or other gastrointestinal discomfort. Medications: albuterol, Duoneb, Xanax, Norvasc, Coreg, Colace, gabapentin, hydralazine, [place], Lantus, Humalog, Singulair, Protonix, potassium chloride, Crestor, theophylline, [place], normal saline Review of Symptoms: 12 point review of symptoms was negative except as noted above Physical examination: Vital Signs: Current vital signs reviewed. General Appearance: lying in bed. Comfortable. No apparent distress. Head: Normocephalic. Eyes: No scleral icterus. No scleral injection. No conjunctival pallor. Oral Cavity: Odor of breath was normal. No drooling was observed. Lips showed no abnormalities. Lungs: Respiration rhythm and depth was normal. Cardiovascular: Heart rate and rhythm were normal. Abdomen: Abdomen was not distended. Abdominal auscultation revealed no abnormalities. Ascites was not discovered. Abdominal palpation revealed minimal tenderness at the right lower quadrant but no mass lesion and no hepatosplenomegaly. Musculoskeletal System: Musculoskeletal system was grossly normal. Neurological: Level of consciousness was normal. Speech was slowed with some difficulty in word finding. No coordination/cerebellum abnormalities were noted. Skin: General appearance was normal. Color and pigmentation were normal. No skin lesions were appreciated. Laboratory: white blood count 4.6, hemoglobin 9.0, hematocrit 28.7, platelets 19 Radiology: reviewed Impressions: 1. Hematochezia -- the patient has known arteriovenous malformation. I recommend continued monitoring of blood counts with transfusion as needed. If bleeding resumes, consider tagged red blood cell scan. 2. Other specified counseling -- Patient seen for greater than 30 minutes. Greater than 50% of this time was spent counseling regarding differential diagnosis, likely diagnosis,, diagnostic and therapeutic options, risks, benefits, and alternatives to procedures and medications, informed consent, and plan of care generally. Patient has expressed understanding and wishes to proceed. Recommendations: -- Continued crystalloid resuscitation -- serial hemoglobin and hematocrit monitoring -- transfusion as indicated -- If bleeding resumes, consider tagged red blood cell scan -- thank you for consultation. Dr. Murillo will resume GI care for this patient tomorrow.
--- NOTE | 2016-12-17 12:54 | EKG Report ---
Stationary ECG Study [facility] Test Date: 12/17/2016 12:52:58 PM Pat Name: Joseph PHILLIPS Department: Room: 524 Gender: M Benefits Manager: : 1945 Requested by: Bladimir York Order Number: [id number] Reading MD: MICHA DINERO Intervals [place] Rate: 59 P: 16 SD: 126 QRS: 2 QRSD: 141 T: 188 QT: 452 QTc: 451 Interpretive Statements SINUS RHYTHM INTRAVENTRICULAR CONDUCTION DELAY LATERAL MYOCARDIAL INFARCTION, OF INDETERMINATE AGE Electronically Signed On 12-18-16 07:02:03 CDT by MICHA DINERO [email or web address]
--- NOTE | 2016-12-17 13:59 | Cardiology Progress Note ---
Cardiology - PN: Subj Interval history: Cardiology note 71-year-old man with rectal bleeding Status post mid RCA stent August 17, 2016 taking aspirin 81 mg daily and Plavix which has been stopped Blood pressure 126/66 O2 sat 93% 2 L Regular rhythm no gallop Decreased breath sounds but clear Abdomen soft nontender No leg edema Lab data today Hemoglobin 9.0 hematocrit 28.7 Sodium 146 potassium 4.3 chloride 114 CO2 25 BUN 18 creatinine 1.10 Magnesium 2.0 glucose 123 Impression Rectal bleeding while on Plavix Status post mid RCA stent August 17, 2016 Status post three-vessel CABG [facility] 1998 Last cath July 2016 showed patent ELIAS graft to LAD, occluded vein graft to right coronary, patent stent sites in the OM vein graft with EF 55% in 2-3+ MR Active smoker Chronic dyspnea Insulin diabetic Hyperlipidemia Diverticulosis by colonoscopy 2010 Last EEG November 13, 2016 showed moderate sized hiatal hernia, AVMs in the antrum without bleeding and esophageal stricture which was not dilated. Plan H&H in a.m. Patient remains stable Exam (Progress Note) - Constitutional Vitals: Period Temp Pulse Resp BP Sys/Leigh Pulse Ox Last 24 Hr 97.2 F-98.6 F 53-75 18-20 117-150/51-67 93-100 Result/EKG - Labs CBC & BMP: 12/17/16 06:11 12/17/16 06:11 Labs: Laboratory Results - last 24 hr 12/16/16 12/16/16 12/17/16 16:12 20:21 06:11 WBC 4.6 RBC 3.18 L Hgb 9.0 L Hct 28.7 L MCV 90.3 MCH 28 MCHC 31.4 L RDW 13.1 Plt Count 109 L MPV 9.1 L Neut % (Auto) 66.3 Lymph % (Auto) 18.0 L [place] % (Auto) 7.6 Eos % (Auto) 7.0 Baso % (Auto) 0.7 Neut # (Auto) 3.1 Lymph # (Auto) 0.8 L [place] # (Auto) 0.4 Eos # (Auto) 0.3 Baso # (Auto) 0.0 Immature Gran % 0.4 Nucleated RBC % 0.0 Immature Gran # 0.02 Nucleated RBCs # 0.00 Sodium Potassium Chloride Carbon Dioxide Anion Gap BUN Creatinine GFR Calculation BUN/Creatinine Ratio Glucose POC Glucose 126 H 173 H Calculated Osmolality Calcium Magnesium 12/17/16 12/17/16 12/17/16 06:11 07:22 11:16 WBC RBC Hgb Hct MCV MCH MCHC RDW Plt Count MPV Neut % (Auto) Lymph % (Auto) [place] % (Auto) Eos % (Auto) Baso % (Auto) Neut # (Auto) Lymph # (Auto) [place] # (Auto) Eos # (Auto) Baso # (Auto) Immature Gran % Nucleated RBC % Immature Gran # Nucleated RBCs # Sodium 146 H Potassium 4.3 Chloride 114 H Carbon Dioxide 25 Anion Gap 11.3 BUN 18 Creatinine 1.10 GFR Calculation 77 BUN/Creatinine Ratio 16.00 Glucose 134 H POC Glucose 123 H 141 H Calculated Osmolality 293.6 Calcium 7.7 L Magnesium 2.0 Quality Measures - VTE Contraindication to Pharmacological VTE Prophylaxis: Active Bleeding
[2016-12-17] MEDS: PANTOPRAZOLE 40 MG VIAL IV SCH (21:05)
[2016-12-17] MEDS: INSULIN GLARGINE 100 UNIT/ML SUBCUT SCH (21:05)
[2016-12-18 06:22] LABS: Basophils # 0.1 10*3/uL (0.0-0.2); Basophils % 1.1 % (0.0-0.8); Eosinophils # 0.3 10*3/uL (0.0-0.87); Eosinophils % 6.3 % (0.00-10.9); Hematocrit 29.5 VOL% (42.0-52.0); Hemoglobin 9.4 GM/DL (14.0-18.0); Immature Granulocytes % 0.6 %; Immature Granulocytes Absolute 0.03 #; Lymphocytes # 0.6 10*3/uL (1.4-4.0); Lymphocytes % 12.6 % (21.2-54.2); Mean Corpuscular HGB Conc 31.9 GM/DL (32-36); Mean Corpuscular Hemoglobin 29 PG (27-34); Mean Corpuscular Volume 90.2 FL (87-102); Mean Platelet Volume 9.5 FL (9.6-12.0); Monocytes # 0.4 10*3/uL (0.11-0.8); Monocytes % 7.6 % (1.7-12.7); Neutrophils # 3.3 10*3/uL (1.4-7.4); Neutrophils % 71.8 % (38.7-73.9); Platelet Count 111 T/CUMM (130-400); Red Blood Count 3.27 MC/CUMM (3.8-5.5); Red Cell Distribution Width 13.2 % (9.3-17.3); White Blood Count 4.6 T/CUMM (4-12)
[2016-12-18 06:55] LABS: Albumin 2.7 G/DL (3.4-5.0); Bilirubin,Total 0.6 MG/DL (0.2-1.0); Calcium 8.1 MG/DL (8.5-10.1); Magnesium 2.1 MG/DL (1.8-2.4); Osmolality,Calculated 290.7 MOS/KG (273-304); Potassium 4.5 MMOL/L (3.5-5.1); Total Protein 5.5 G/DL (6.4-8.3)
[2016-12-18] MEDS: INSULIN LISPRO 100 UNIT/ML SUBCUT SCH ×2 (07:58→11:53)
--- NOTE | 2016-12-18 08:39 | Gastrointestinal Progress Note ---
<Letty Bryosn Amarjit - Last Filed: 12/18/16 08:36> Assessment and Plan (1) Lower gastrointestinal hemorrhage Status: Acute Assessment and plan: 12/18-no further bleeding reported since small episode yesterday. Hemoglobin is improved to 9.4 without blood transfusion this hospitalization. No abdominal pain. Tolerating diet. Plavix continue to be held. Plan an addendum to follow by Dr. Murillo. 12/15-5 day history of bright red bleeding with clots with associated abdominal cramping. History of recent stent placement in the last several months on Plavix therapy. Hemoglobin stable at 10.8. History of diverticulosis noted on endoscopy in 2010. Monitor serial H&H. Transfuse as necessary. Plan an addendum to follow by Dr. Murillo. Gastroenterology - PN: Subj Interval history: CC: Hematochezia Patient is seen awake and alert resting in bed. States he had an uneventful weekend. He had one small episode of bright red blood mixed with his stool on yesterday but has had no further since this time. Hemoglobin is improved at 9.4. He is required no blood transfusions since admission. He denies any abdominal discomfort or pain this morning. Denies any nausea or vomiting. He is tolerating a regular diet at this time. He is inquiring about going home. Abdomen is soft, nontender. Cardiology is following and Plavix has been discontinued. ROS: Denies shortness of breath or chest pain Exam (Progress Note) - Constitutional Vitals: Period Temp Pulse Resp BP Sys/Leigh Pulse Ox Last 24 Hr 97.4 F-98.9 F 63-84 18-20 130-167/54-68 93-98 General appearance: normal weight, no acute distress - Head Head exam: Present: normal inspection, normocephalic - Eye Eye exam: Present: other (Lids and conjunctivae unremarkable). Absent: scleral icterus - ENT ENT exam: Present: normal exam, normal oropharynx - Neck Neck exam: Present: normal inspection - Respiratory Respiratory exam: Present: clear to auscultation bilaterally. Absent: rales, rhonchi, wheezes - Cardiovascular Cardiovascular exam: Present: regular rate and rhythm. Absent: diastolic murmur , JVD, systolic murmur - GI/Abdominal GI/Abdominal exam: Present: normal bowel sounds, soft. Absent: ascites, distended, mass, organomegaly, tenderness - Extremities Exam Extremities exam: Present: normal inspection, full ROM - Back Exam Back exam: Present: normal inspection - Neurological Exam Neurological exam: Present: alert, oriented X3 - Psychiatric Psychiatric exam: Present: normal affect, normal mood - Skin Skin exam: Present: normal color, warm, dry Results - Labs CBC & BMP: 12/18/16 05:48 12/18/16 05:48 Lab Results: I have reviewed the past 24 hour labs Specialty Discharge - Follow Up or Referrals Follow up with: Mele Echeverria MD [Physician] - 01/02/17 8:20 am <Toni Murillo - Last Filed: 12/18/16 23:28> Exam (Progress Note) - Constitutional Vitals: Period Temp Pulse Resp BP Sys/Leigh Pulse Ox Last 24 Hr 98.6 F-98.8 F 73-84 18-20 146-167/63-68 96-97 Results - Labs CBC & BMP: 12/18/16 05:48 12/18/16 05:48
[2016-12-18] MEDS: ALPRAZolam 0.5 MG TABLET PO SCH (09:02)
[2016-12-18] MEDS: POTASSIUM CHLORIDE 20 MEQ TABLET PO SCH (09:02)
[2016-12-18] MEDS: GABAPENTIN 100 MG CAPSULE PO SCH (09:02)
[2016-12-18] MEDS: MONTELUKAST 10 MG TABLET PO SCH (09:02)
[2016-12-18] MEDS: THEOPHYLLINE ER 300 MG TABLET PO SCH (09:02)
[2016-12-18] MEDS: DOCUSATE SODIUM 100 MG CAPSULE PO SCH (09:02)
[2016-12-18] MEDS: amLODIPine 10 MG TABLET PO SCH (09:02)
[2016-12-18] MEDS: PANTOPRAZOLE 40 MG VIAL IV SCH (09:02)
[2016-12-18] MEDS: CARVEDILOL 3.125 MG TABLET PO SCH (09:02)
[2016-12-18] MEDS: ROSUVASTATIN 20 MG TABLET PO SCH (09:02)
[2016-12-18] MEDS: SODIUM CHLORIDE 0.9% 1,000 ML IV SCH (09:03)
[2016-12-18] MEDS: hydrALAZINE 25 MG TABLET PO SCH (09:03)
[2016-12-18 09:41] VITALS: BP 158/68
--- NOTE | 2016-12-18 10:07 | Discharge Summary ---
<Bladimir York - Last Filed: 12/18/16 10:08> Diagnosis - Discharge Diagnosis (1) Lower GI bleed Status: Acute (2) COPD exacerbation Status: Chronic Specialty Discharge - Follow Up or Referrals Follow up with: Chidi Wei MD [Physician] - 1 Week Discharge Plan - Discharge Data Disposition: Disch To Home/Self Care Condition at Discharge: Stable Discharge Diet: heart healthy Activity: resume usual activities as tolerated Hygiene: no restrictions Weight Bearing at Discharge: weight bear as tolerated Driving: not until seen by doctor Contact your physician if you experience:: fever over 101, Nausea/Vomiting, Shortness of breath, Bleeding - Discharge Medications Continue Insulin Glargine [Lantus] 20 unit SUBCUT BEDTIME Rosuvastatin [Crestor] 20 mg PO DAILY Docusate Sodium Cap [Colace Cap] 100 mg PO DAILY Cyclobenzaprine [Flexeril] 10 mg PO TID Ferrous Sulfate Tab [Feosol Original Tab] 325 mg PO TID Zolpidem Tartrate [Ambien] 10 mg PO BEDTIME PRN PRN Reason: Sleep Furosemide 40 mg PO BID ALPRAZolam [Xanax] 1 mg PO TID Pantoprazole Tab [Protonix Tab] 40 mg PO DAILY HYDROcodone/ACETAMIN 10-325 [[place] 10-325] 1 tablet PO Q6HR PRN PRN Reason: Pain Theophylline ER Tab 300 mg PO BID Albuterol/Ipratropium Neb [Duoneb] 3 ml RESP TX RT Q4H PRN PRN Reason: Shortness Of Breath/Wheezing hydrALAZINE TAB [Apresoline Tab] 25 mg PO BID #60 tablet Potassium Chloride 20 meq PO DAILY Tiotropium Br/Olodaterol HCl [Stiolto Respimat Inhal Pinch] 2 puffs INH DAILY Nitroglycerin 0.3 mg SL DIRECTED PRN PRN Reason: Chest Pain amLODIPine [Norvasc] 10 mg PO DAILY #30 tablet Albuterol Sulfate [Ventolin HFA] 2 puff INH Q4H PRN PRN Reason: Shortness Of Breath/Wheezing Carvedilol [Coreg] 3.125 mg PO BID #60 tablet Gabapentin Cap/Tab [Neurontin Cap/Tab] 100 mg PO TID #90 capsule Losartan [Cozaar] 25 mg PO BID #60 tablet Montelukast Sodium 10 mg PO DAILY predniSONE TAB [PredniSONE] 10 mg PO QOTHER DAY Discontinued Clopidogrel [Plavix] 75 mg PO DAILY #30 tablet - Follow Up or Referral Follow Up: Chidi Wei MD [Physician] - 1 Week - Forms/Instructions Instructions: Gastrointestinal Bleeding (DC), Anemia (DC) Exam - Constitutional Vitals: Period Temp Pulse Resp BP Sys/Leigh Pulse Ox Last 24 Hr 97.4 F-98.9 F 63-84 18-20 130-167/54-68 93-98 General appearance: normal weight, no acute distress - Head Head exam: Present: normocephalic - Eye Eye exam: Present: EOMI Pupils: Present: TRACEY - ENT ENT exam: Present: normal exam - Neck Neck exam: Present: normal inspection - Respiratory Respiratory exam: Present: clear to auscultation bilaterally - Cardiovascular Cardiovascular exam: Present: regular rate and rhythm - GI/Abdominal GI/Abdominal exam: Present: normal bowel sounds, soft, other (Patient came to the hospital with hematochezia. He has since been taken off the Plavix. GI was consulted. Plan at this point that we will send him home with follow-up with them as an outpatient. There is no 6 date of endoscopy because there is no plan risk scope him again. If he rebleeds then will do a bleeding scan. I just had a weight from Dr. Murillo (gastroenterology) regarding this.) - Extremities Exam Extremities exam: Present: full ROM - Back Exam Back exam: Present: normal inspection - Neurological Exam Neurological exam: Present: alert, oriented X3, CN II-XII intact, other (Hard of hearing hard of hearing) - Psychiatric Psychiatric exam: Present: normal affect, normal mood, other - Skin Skin exam: Present: normal color, warm, dry Discharge Results Labs on day of discharge: Labs from last 24 hours 12/18/16 12/18/16 12/18/16 07:25 05:48 05:48 WBC 4.6 RBC 3.27 L Hgb 9.4 L Hct 29.5 L MCV 90.2 MCH 29 MCHC 31.9 L RDW 13.2 Plt Count 111 L MPV 9.5 L Neut % (Auto) 71.8 Lymph % (Auto) 12.6 L [place] % (Auto) 7.6 Eos % (Auto) 6.3 Baso % (Auto) 1.1 H Neut # (Auto) 3.3 Lymph # (Auto) 0.6 L [place] # (Auto) 0.4 Eos # (Auto) 0.3 Baso # (Auto) 0.1 Immature Gran % 0.6 Nucleated RBC % 0.0 Immature Gran # 0.03 Nucleated RBCs # 0.00 Sodium 145 Potassium 4.5 Chloride 113 H Carbon Dioxide 25 Anion Gap 11.5 BUN 17 Creatinine 1.20 GFR Calculation 69 BUN/Creatinine Ratio 14.00 Glucose 113 H POC Glucose 103 Calculated Osmolality 290.7 Calcium 8.1 L Phosphorus 2.0 L Magnesium 2.1 Total Bilirubin 0.60 AST 24 ALT 28 Alkaline Phosphatase 79 Total Protein 5.5 L Albumin 2.7 L Globulin 2.8 Albumin/Globulin Ratio 0.9 L 12/17/16 12/17/16 12/17/16 21:02 16:41 11:16 WBC RBC Hgb Hct MCV MCH MCHC RDW Plt Count MPV Neut % (Auto) Lymph % (Auto) [place] % (Auto) Eos % (Auto) Baso % (Auto) Neut # (Auto) Lymph # (Auto) [place] # (Auto) Eos # (Auto) Baso # (Auto) Immature Gran % Nucleated RBC % Immature Gran # Nucleated RBCs # Sodium Potassium Chloride Carbon Dioxide Anion Gap BUN Creatinine GFR Calculation BUN/Creatinine Ratio Glucose POC Glucose 141 H 156 H 141 H Calculated Osmolality Calcium Phosphorus Magnesium Total Bilirubin AST ALT Alkaline Phosphatase Total Protein Albumin Globulin Albumin/Globulin Ratio DS: Provider Date of admission: 12/14/16 18:25 Primary care physician: . No PCP Attending physician on admission: Ivanna Warren MD Consults: 12/14/16 18:28 Consult to Physician [CONS] Routine Comment: Consulting Provider: Chidi Wei When should Consulting Provider be notified: In am Person Notified: AWARE Date Notified: 12/15/16 Time Notified: 09:33 Consult to Physician [CONS] Routine Comment: Consulting Provider: Toni Murillo When should Consulting Provider be notified: In am Person Notified: aware Date Notified: 12/15/16 Time Notified: 16:43 12/14/16 20:36 Consult to Dietitian [CONS] Routine Reason for Dietitian: Other 12/18/16 09:40 Consult to Case Mgmt/Social Srvs [CONS] Routine Reason for Case Mgmt/Social Srvs: Home Health Discharging clinician: Bladimir York MD <Amy Zamudio - Last Filed: 12/18/16 12:08> Hospital Course - Hospital Course Hospital Course: Mr. Quintana is a 71 y/o male with history of CHF, HTN, CAD, CABG, CVA, Dementia , DM controlled insulin, Gout, COPD, Diverticulosis and Arthritis. He has had a previous GI Bleed. He was transferred from [facility] for acute GI Bleed. Pt has associated sxs of SOB, light headed, and bilateral lower quadrant abdominal pain but denies weakness. Pt describes the bleeding as bright red in appearance. He is currently taking Plavix that was started 3 months ago after his cardiac stent placement. He was admitted as an impatient to the Hospitalist Service for evaluation of his GI Bleed. GI and cardiology were consulted His H/ H on admission was 10.8/33.1 and today it is 9.4/29.5 Cardiology recommended stopping Plavix as well as GI. He was found to have an elevated BUN/CR of 39/ 1.8 on admission but has improved to 17/1.20. He is being discharge home today> he will not be on his plavix at this time. May consider restarting at a later date. 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
--- NOTE | 2016-12-26 09:02 | Physician Query Form ---
CLICK EDIT DOCUMENT TO SELECT QUERY ANSWER --> OK --> SIGN Sabrina Contreras RN, CCDS Certified Clinical Master Baker W) [phone] (f) [phone] [email or web address] PROVIDERS: Make your selection(s) from the choices in EACH section by typing an "x" and enter comments in the comment section. Please use your independent medical judgment in providing your response. This request does not imply that any particular answer is desired or expected. CLINICAL INDICATORS: (Providers should not edit this section) The medical record indicates that the patient was admitted with lower GI bleeding, "bleeding as bright red", "chronic Plavix therapy for cardiac stent placement several months ago", " has known angiodysplasia and certainly ongoing anticoagulation which is at high risk for rebleeding". Based on the above, could you clarify the appropriate diagnosis, if significant , that supports the above abnormalities and additional evaluation, monitoring, and/or treatment rendered: ( ) GI bleeding is due to angiodysplasia ( x) GI bleeding is due to Plavix and angiodysplasia ( ) GI bleeding is due to ( ) Other, please specify: ( ) Clinically unable to determine COMMENTS: PLEASE ALSO DOCUMENT RESPONSE IN PROGRESS NOTES AND/OR DISCHARGE SUMMARY Use of terms such as suspected, likely, or probable (associated with a specific diagnosis that is being evaluated, monitored, or treated as if it exists) are acceptable and can be restated in the discharge summary if not ruled out. MTDD
--- NOTE | 2016-12-26 09:11 | Physician Query Form ---
CLICK EDIT DOCUMENT TO SELECT QUERY ANSWER --> OK --> SIGN Sabrina Contreras RN, CCDS Certified Clinical Charging Plug Placer W) [phone] (f) [phone] [email or web address] PROVIDERS: Make your selection(s) from the choices in EACH section by typing an "x" and enter comments in the comment section. Please use your independent medical judgment in providing your response. This request does not imply that any particular answer is desired or expected. CLINICAL INDICATORS: (Providers should not edit this section) The medical record indicates that the patient was admitted with lower GI bleeding, COPD and the patient was on Proventil, Duoneb, Theophylline. Per discharge Summary : "COPD exacerbation Status: Chronic" (Based on conflicting data can you please clarify the acuity of the COPD during this stay) Clarify which of the following accurately represents the acuity of the above diagnosis. ( ) Acute (Exacerbation) ( ) Acute (Exacerbation) on chronic ( ) Chronic stable condition ( ) Remission ( ) Other, please specify: ( ) Clinically unable to determine COMMENTS: PLEASE ALSO DOCUMENT RESPONSE IN PROGRESS NOTES AND/OR DISCHARGE SUMMARY Use of terms such as suspected, likely, or probable (associated with a specific diagnosis that is being evaluated, monitored, or treated as if it exists) are acceptable and can be restated in the discharge summary if not ruled out. MTDD
--- NOTE | 2016-12-27 07:33 | Physician Query Form ---
CLICK EDIT DOCUMENT TO SELECT QUERY ANSWER --> OK --> SIGN PROVIDERS: Make your selection(s) from the choices in EACH section by typing an "x" and enter comments in the comment section. Please use your independent medical judgment in providing your response. This request does not imply that any particular answer is desired or expected. CLINICAL INDICATORS: (Providers should not edit this section) The medical record indicates that the patient was admitted with lower GI bleeding, COPD and the patient was on Proventil, Duoneb, Theophylline. "Per discharge Summary : COPD exacerbation Status: Chronic" (Based on conflicting data can you please clarify the acuity of the COPD during this stay) Clarify which of the following accurately represents the acuity of the above diagnosis. ( ) Acute (exacerbation) ( ) Acute (exacerbation) on chronic ( x) Chronic stable condition ( ) Remission ( ) Other, please specify: ( ) Clinically unable to determine COMMENTS: PLEASE ALSO DOCUMENT RESPONSE IN PROGRESS NOTES AND/OR DISCHARGE SUMMARY Use of terms such as suspected, likely, or probable (associated with a specific diagnosis that is being evaluated, monitored, or treated as if it exists) are acceptable and can be restated in the discharge summary if not ruled out. MARISELAD
== END 2016-12-18 13:05 | disposition home health service (06) | DRG 378 ==
LOC: EDUNIT# → EDBD → N.ED 17:03 → N.EDINP 18:25 → SUATTDRO 18:25 → N.EDINP 19:43 → N.5E 20:04
PROVIDERS: ADMIT Family Medicine; ATTEND Internal Medicine Infectious Disease

== ENCOUNTER 2016-12-27 03:20 | Inpatient (IN) ==
[2016-12-27 04:00] LABS: Basophils # 0.1 10*3/uL (0.0-0.2); Basophils % 0.8 % (0.0-0.8); Eosinophils # 0.3 10*3/uL (0.0-0.87); Eosinophils % 4.5 % (0.00-10.9); Hematocrit 29.8 VOL% (42.0-52.0); Hemoglobin 9.5 GM/DL (14.0-18.0); Immature Granulocytes % 0.3 %; Immature Granulocytes Absolute 0.02 #; Lymphocytes % 14.9 % (21.2-54.2); Mean Corpuscular HGB Conc 31.9 GM/DL (32-36); Mean Corpuscular Hemoglobin 29 PG (27-34); Mean Corpuscular Volume 92.3 FL (87-102); Mean Platelet Volume 9.9 FL (9.6-12.0); Monocytes # 0.6 10*3/uL (0.11-0.8); Monocytes % 9.5 % (1.7-12.7); Neutrophils # 4.5 10*3/uL (1.4-7.4); Platelet Count 147 T/CUMM (130-400); Red Blood Count 3.23 MC/CUMM (3.8-5.5); Red Cell Distribution Width 14.7 % (9.3-17.3); White Blood Count 6.4 T/CUMM (4-12)
[2016-12-27 04:08] LABS: PT Patient Result 10.8 SECS
[2016-12-27 04:23] LABS: Albumin 3.3 G/DL (3.4-5.0); Bilirubin,Direct 0.1 MG/DL (0.0-0.20); Bilirubin,Indirect 0.3 MG/DL (0.0-1.0); Bilirubin,Total 0.4 MG/DL (0.2-1.0); Total Protein 6.8 G/DL (6.4-8.3)
[2016-12-27 04:36] LABS: Calcium 8.5 MG/DL (8.5-10.1); Magnesium 2.3 MG/DL (1.8-2.4); Osmolality,Calculated 282.8 MOS/KG (273-304); Potassium 4.2 MMOL/L (3.5-5.1)
--- NOTE | 2016-12-27 05:05 | Emergency Department Note ---
Beverley Roy Hilary, am scribing for, and in the presence of, Augusto Alcantara MD 03:53 . Maricruz Roy Hans, MD, personally performed the services described in this documentation, ascribed by Marcy Lowery in my presence, and it is both accurate and complete 504 . Arrival - Arrival Chief Complaint: GI Bleed/Rectal Stated Complaint: Gi bleed ED Nursing Triage Note: Patient to room via ems c/o gi bleed. patient states that it started two days ago then stopped. This morning he got up to go to the bathroom and had bright red blood go everywhere. he states last time this happened he had a blockage. Mode of Arrival: Stretcher Limitations: No Limitations Source: Patient, RN Notes Reviewed Time Seen by Provider: 12/27/16 03:44 - History of Present Illness HPI Narrative: Pt is a 71 y/o male brought into the ED with c/o GI Bleed which onset this morning. He reports that he had these symptoms 2 days ago and then it went away but this morning he woke up to go to the bathroom and there was bright red blood everywhere. Pt confirms hematochezia, abdominal pain but denies chest pain , nausea or vomiting. Pt has a PMHx of CHF, CAD, HTN, [place], CABG, Cerebrovascular Accident, Dyslipidemia, IDDM, NIDDM, renal insufficiency, gastrointestinal bleed , polyps, diverticulitis. No other complaints or problems stated in the ED. Onset (ago): day(s) Allergies/Adverse Reactions: Allergies Allergy/AdvReac Type Severity Reaction Status Date / Time No Known Allergies Allergy Verified 12/27/16 03:30 Home Medications: Home Medications Medication Instructions Recorded Confirmed Type ALPRAZolam [Xanax] 1 mg PO TID 11/07/14 12/15/16 History Cyclobenzaprine [Flexeril] 10 mg PO TID 11/07/14 12/15/16 History Docusate Sodium Cap [Colace Cap] 100 mg PO DAILY 11/07/14 12/14/16 History Ferrous Sulfate Tab [Feosol 325 mg PO TID 11/07/14 12/15/16 History Original Tab] Furosemide 40 mg PO BID 11/07/14 12/15/16 History Insulin Glargine [Lantus] 20 unit SUBCUT BEDTIME 11/07/14 12/15/16 History Rosuvastatin [Crestor] 20 mg PO DAILY 11/07/14 12/15/16 History Zolpidem Tartrate [Ambien] 10 mg PO BEDTIME PRN 11/07/14 12/15/16 History amLODIPine [Norvasc] 10 mg PO DAILY #30 tablet 08/23/16 12/15/16 Rx HYDROcodone/ACETAMIN 10-325 [[place] 1 tablet PO Q6HR PRN 11/03/16 12/15/16 History 10-325] Pantoprazole Tab [Protonix Tab] 40 mg PO DAILY 11/03/16 12/15/16 History Theophylline ER Tab 300 mg PO BID 11/03/16 12/15/16 History Albuterol Sulfate [Ventolin HFA] 2 puff INH Q4H PRN 11/07/16 12/15/16 History Albuterol/Ipratropium Neb [Duoneb] 3 ml RESP TX RT Q4H PRN 11/07/16 12/15/16 History Carvedilol [Coreg] 3.125 mg PO BID #60 tablet 11/19/16 12/15/16 Rx Gabapentin Cap/Tab [Neurontin 100 mg PO TID #90 capsule 11/19/16 12/15/16 Rx Cap/Tab] Losartan [Cozaar] 25 mg PO BID #60 tablet 11/19/16 12/15/16 Rx hydrALAZINE TAB [Apresoline Tab] 25 mg PO BID #60 tablet 11/19/16 12/15/16 Rx Montelukast Sodium 10 mg PO DAILY 12/14/16 12/15/16 History Potassium Chloride 20 meq PO DAILY 12/14/16 12/15/16 History Tiotropium Br/Olodaterol HCl 2 puffs INH DAILY 12/14/16 12/15/16 History [Stiolto Respimat Inhal [place]] Nitroglycerin 0.3 mg SL DIRECTED PRN 12/15/16 12/15/16 History predniSONE TAB [PredniSONE] 10 mg PO QOTHER DAY 12/15/16 12/15/16 History Review of System - Review of System 12 point system: reviewed and no additional remarkable complaints except as stated - Review of System Constitutional: Absent: fever Cardiovascular: Absent: chest pain Gastrointestinal: Present: abdominal pain, diarrhea, hematochezia. Absent: nausea, vomiting Medical,Surgical,& Family Hx - Medical History Cardio: History of: CHF, CAD, Hypertension, [place], Cardiovascular Problems (CABG) No history of: Pacemaker Psychological: History of: Anxiety Disorders (takes xanax for anxirty) Neurology: History of: Cerebrovascular Accident, Dementia No history of: Brain Aneurysm, Seizures HEENT: History of: Ear Problem ([place] in right ear) Endocrine: History of: Diabetes Mellitus (IDDM), Diabetes Mellitus (NIDDM), Dyslipidemia No history of: Thyroid Disorder Rheumatology: History of;: Gout, Rheumatoid Arthritis, Rheumatological Problems (Arthritis) Respiratory: History of: COPD, Pneumonia, Respiratory Problems Renal: History of: Renal Problems (renal insufficiency ) Genitourinary: No history of: Kidney Stones Gastrointestinal: History of: Diverticulitis/ Diverticulosis, Gastrointestinal Bleed, Polyps Musculoskeletal: History of: Back/Neck Problems (constant discomfort), Musculoskeletal Problems No history of: Amputation Hematology: History of: Anemia No history of: Blood Transfusion Reaction - Surgical History Cardiac Surgeries: Sugical HX of: Cardiac Catheterization (6 STENTS), Cardiac Surgery (three-vessel saphenous vein bypass) Patient Denies: Carotid Endarterectomy Thoracic Surgeries: Patient denies;: Organ Transplant Neurologic Surgeries: Surgical HX of: Neurologic Surgery Patient denies: Brain Aneurysm HEENT Surgeries: Patient denies: Carotid Endarterectomy, Eye Surgery, Thyroid Surgery, Tonsilectomy & Adenoidectomy Abdominal Surgeries: Surgical HX of: Colonoscopy, EGD Patient denies: Abdominal Surgery, Appendectomy, Cholecystectomy, Gastric Bypass Surgery, Hernia Repair Reproductive Surgeries: Patient denies;: Genitourinary Surgery Orthopedic Surgeries: Surgical HX of;: Orthopedic Surgery (LEFT hip fx) - Family History Family History: Reports;: Family Cancer (Sister (cervical) Brother (prostate)), Family Diabetes (Mother, Father, Brother), Family Heart Disease (Mother, Father , Brother, Sister), Family Hypertension (Mother, Father, Brother, Sister), Family Stroke (Brother) Denies;: Family Anesthesia Reaction, Family Psychiatric Problems - Social History Smoking Status: Smoker, status unknown Frequency of Alcohol Use: None Type of Drug Use: None Exam Vital Signs: Vital Signs Temperature 97.2 F L 12/27/16 03:20 Pulse Rate 66 12/27/16 03:20 Respiratory Rate 21 12/27/16 03:20 Blood Pressure 150/57 12/27/16 03:20 O2 Sat by Pulse Oximetry 97 12/27/16 03:20 - General General appearance: alert, in no apparent distress - Head Head exam: Present: atraumatic, normocephalic - Eye Eye exam: Present: normal appearance, PERRL, EOMI - ENT ENT exam: Present: mucous membranes moist, TM's normal bilaterally. Absent: mucous membranes dry - Neck Neck exam: Present: full ROM, trachea midline. Absent: tenderness - Chest Chest inspection: Present: symmetric chest wall rise. Absent: tenderness - Respiratory Respiratory exam: Present: normal lung sounds bilaterally. Absent: respiratory distress - Cardiovascular Cardiovascular exam: Present: regular rate, normal rhythm, normal heart sounds. Absent: murmur, rubs, gallop - Abdominal Exam Abdominal exam: Present: soft, normal bowel sounds. Absent: distention, tenderness (pt reports LLQ pain but no tenderness upon palpation) - Extremities Exam Extremities exam: Present: full ROM. Absent: tenderness - Back Exam Back exam: Present: full ROM. Absent: tenderness - Neurological Exam Neurological exam: Present: alert, oriented X3, CN II-XII intact. Absent: motor sensory deficit - Psychiatric Psychiatric exam: Present: normal affect, normal mood - Skin Skin exam: Present: warm, dry, intact, normal color. Absent: rash Course Course Narrative: This patient was evaluated with labwork which revealed a stable hemoglobin. Because he rebled I discussed his care with the hospitalist professor of physical education, who agreed to admit the patient for ongoing workup and management. Results - Labs CBC & BMP: 12/27/16 03:39 12/27/16 03:39 Lab Results: I have reviewed the patients labs Labs: Laboratory Tests 12/27/16 03:39 WBC 6.4 RBC 3.23 L Hgb 9.5 L Hct 29.8 L MCHC 31.9 L Lymph % (Auto) 14.9 L Lymph # (Auto) 1.0 L Laboratory Tests 12/27/16 12/27/16 12/27/16 03:39 03:39 03:39 INR 1.0 PT Patient/Control Mix 10.8 Circ Anticoag PTT 30.7 ALT 14 L Albumin 3.3 L Laboratory Tests 12/27/16 12/27/16 03:39 04:11 Sodium 137 Potassium 4.2 Chloride 105 Carbon Dioxide 22 BUN 39 H Creatinine 1.80 H BUN/Creatinine Ratio 21.00 H Glucose 109 H Lactic Acid 3.0 H Disposition Clinical Impression: Hematochezia, Lower gastrointestinal hemorrhage Case discussed with: patient Disposition: Still a Patient Condition: Stable Instructions: Gastrointestinal Bleeding (ED) Time of Disposition: 05:04
--- NOTE | 2016-12-27 05:37 | Hospitalist History & Physical ---
Assessment and Plan (1) Hematochezia Status: Acute Assessment and plan: Patient has had these events noted a long time ago. This month. 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 Lower endoscopy did not reveal much on the last visit and does plan to do a bleeding scan once it happened again. This will be ordered today. Patient is being consulted to Dr. Murillo our health and safety instructor. Will be admitted to the general medical floor Current Visit: Yes (2) Abdominal pain Status: Acute Assessment and plan: Could be secondary to irritation of blood in the bowels. Is no rebound tenderness I do not think there is mesenteritis at this time. Patient is a febrile. Current Visit: No Qualifiers: Abdominal location: lower abdomen, unspecified Qualified Code(s): R10.30 - Lower abdominal pain, unspecified (3) Anemia Status: Acute Assessment and plan: Secondary GI bleed. His hematocrit is around the same as last time he left the hospital. Current Visit: No Qualifiers: Anemia type: other cause Other causes of anemia: acute posthemorrhagic Qualified Code(s): D62 - Acute posthemorrhagic anemia History of Present Illness Chief complaint: Passing blood clots per rectum History of present illness: Mr. Quintana is a 71 year old male brought into the ED with c/o GI Bleed which onset this morning. He reports that he had these symptoms 2 days ago and then it went away but this morning he woke up to go to the bathroom and there was bright red blood everywhere. Pt confirms hematochezia, abdominal pain but denies chest pain, nausea or vomiting. Per patient's , the last passing of blood was while already in the emergency room this morning Patient has a PMHx of CHF, CAD, HTN, [place], CABG, Cerebrovascular Accident, Dyslipidemia, IDDM, NIDDM, renal insufficiency, gastrointestinal bleed, polyps, diverticulitis. He was just recently released from the hospital with the same problem and was seen by Dr. Murillo our health and safety instructor. This plan to do a bleeding scan if this happened again. Home Medications Medication Instructions Recorded Confirmed Type ALPRAZolam [Xanax] 1 mg PO TID 11/07/14 12/15/16 History Cyclobenzaprine [Flexeril] 10 mg PO TID 11/07/14 12/15/16 History Docusate Sodium Cap [Colace Cap] 100 mg PO DAILY 11/07/14 12/14/16 History Ferrous Sulfate Tab [Feosol 325 mg PO TID 11/07/14 12/15/16 History Original Tab] Furosemide 40 mg PO BID 11/07/14 12/15/16 History Insulin Glargine [Lantus] 20 unit SUBCUT BEDTIME 11/07/14 12/15/16 History Rosuvastatin [Crestor] 20 mg PO DAILY 11/07/14 12/15/16 History Zolpidem Tartrate [Ambien] 10 mg PO BEDTIME PRN 11/07/14 12/15/16 History amLODIPine [Norvasc] 10 mg PO DAILY #30 tablet 08/23/16 12/15/16 Rx HYDROcodone/ACETAMIN 10-325 [[place] 1 tablet PO Q6HR PRN 11/03/16 12/15/16 History 10-325] Pantoprazole Tab [Protonix Tab] 40 mg PO DAILY 11/03/16 12/15/16 History Theophylline ER Tab 300 mg PO BID 11/03/16 12/15/16 History Albuterol Sulfate [Ventolin HFA] 2 puff INH Q4H PRN 11/07/16 12/15/16 History Albuterol/Ipratropium Neb [Duoneb] 3 ml RESP TX RT Q4H PRN 11/07/16 12/15/16 History Carvedilol [Coreg] 3.125 mg PO BID #60 tablet 11/19/16 12/15/16 Rx Gabapentin Cap/Tab [Neurontin 100 mg PO TID #90 capsule 11/19/16 12/15/16 Rx Cap/Tab] Losartan [Cozaar] 25 mg PO BID #60 tablet 11/19/16 12/15/16 Rx hydrALAZINE TAB [Apresoline Tab] 25 mg PO BID #60 tablet 11/19/16 12/15/16 Rx Montelukast Sodium 10 mg PO DAILY 12/14/16 12/15/16 History Potassium Chloride 20 meq PO DAILY 12/14/16 12/15/16 History Tiotropium Br/Olodaterol HCl 2 puffs INH DAILY 12/14/16 12/15/16 History [Stiolto Respimat Inhal [place]] Nitroglycerin 0.3 mg SL DIRECTED PRN 12/15/16 12/15/16 History predniSONE TAB [PredniSONE] 10 mg PO QOTHER DAY 12/15/16 12/15/16 History Allergies Allergy/AdvReac Type Severity Reaction Status Date / Time No Known Allergies Allergy Verified 12/27/16 03:30 Medical,Surgical,& Family Hx - Medical History Cardio: History of: CHF, CAD, Hypertension, [place], Cardiovascular Problems (CABG) No history of: Pacemaker Psychological: History of: Anxiety Disorders (takes xanax for anxirty) Neurology: History of: Cerebrovascular Accident, Dementia No history of: Brain Aneurysm, Seizures HEENT: History of: Ear Problem ([place] in right ear) Endocrine: History of: Diabetes Mellitus (IDDM), Diabetes Mellitus (NIDDM), Dyslipidemia No history of: Thyroid Disorder Rheumatology: History of;: Gout, Rheumatoid Arthritis, Rheumatological Problems (Arthritis) Respiratory: History of: COPD, Pneumonia, Respiratory Problems Renal: History of: Renal Problems (renal insufficiency ) Genitourinary: No history of: Kidney Stones Gastrointestinal: History of: Diverticulitis/ Diverticulosis, Gastrointestinal Bleed, Polyps Musculoskeletal: History of: Back/Neck Problems (constant discomfort), Musculoskeletal Problems No history of: Amputation Hematology: History of: Anemia No history of: Blood Transfusion Reaction - Surgical History Cardiac Surgeries: Sugical HX of: Cardiac Catheterization (6 STENTS), Cardiac Surgery (three-vessel saphenous vein bypass) Patient Denies: Carotid Endarterectomy Thoracic Surgeries: Patient denies;: Organ Transplant Neurologic Surgeries: Surgical HX of: Neurologic Surgery Patient denies: Brain Aneurysm HEENT Surgeries: Patient denies: Carotid Endarterectomy, Eye Surgery, Thyroid Surgery, Tonsilectomy & Adenoidectomy Abdominal Surgeries: Surgical HX of: Colonoscopy, EGD Patient denies: Abdominal Surgery, Appendectomy, Cholecystectomy, Gastric Bypass Surgery, Hernia Repair Reproductive Surgeries: Patient denies;: Genitourinary Surgery Orthopedic Surgeries: Surgical HX of;: Orthopedic Surgery (LEFT hip fx) - Family History Family History: Reports;: Family Cancer (Sister (cervical) Brother (prostate)), Family Diabetes (Mother, Father, Brother), Family Heart Disease (Mother, Father , Brother, Sister), Family Hypertension (Mother, Father, Brother, Sister), Family Stroke (Brother) Denies;: Family Anesthesia Reaction, Family Psychiatric Problems - Social History Smoking Status: Smoker, status unknown Frequency of Alcohol Use: None Type of Drug Use: None Review of systems: A 12 point system assessment is done patient is awake alert not in distress complaining of some mild/moderate pain in the infraumbilical area passing blood clots per rectum as late as within the last hour vital signs stable is hard of hearing. Review of system is otherwise significant for the chief complaint and history of presenting illness. Exam - Constitutional Vitals: Period Temp Pulse Resp BP Sys/Leigh Pulse Ox Last 24 Hr 97.2 F-97.2 F 66-66 21-21 150-150/57-57 97 General appearance: over weight - Head Head exam: Present: normocephalic, atraumatic - Eye Eye exam: Present: EOMI, other (Anicteric sclera no conjunctival petechia pink conjunctivae) Pupils: Present: TRACEY - ENT ENT exam: Present: normal exam, normal oropharynx - Neck Neck exam: Present: normal inspection, other (Supple neck no thyromegaly no adenopathy) - Respiratory Respiratory exam: Present: clear to auscultation bilaterally - Cardiovascular Cardiovascular exam: Present: regular rate and rhythm, other - GI/Abdominal GI/Abdominal exam: Present: normal bowel sounds, soft, other (Infraumbilical discomfort on palpation) - Extremities Exam Extremities exam: Present: full ROM - Back Exam Back exam: Present: normal inspection - Neurological Exam Neurological exam: Present: alert, oriented X3, other (Hard of hearing) - Psychiatric Psychiatric exam: Present: normal affect, normal mood - Skin Skin exam: Present: normal color, warm, dry Results - Labs CBC & BMP: 12/27/16 03:39 12/27/16 03:39 Lab Results: I have reviewed the past 24 hour labs (Patient passed blood clots just an hour prior to me evaluating)
[2016-12-27] MEDS: PANTOPRAZOLE 40 MG VIAL IV SCH ×2 (08:56→21:54)
--- NOTE | 2016-12-27 09:00 | Event Note ---
The patient's history and physical just performed about 3 hours ago. We are waiting for a GI evaluation. The patient continues to pass blood. I will reconcile his home medications once the list has been updated by the nursing staff.
--- NOTE | 2016-12-27 09:02 | Nuclear Medicine Report ---
NM GI bleeding Indication: Lower GI bleeding. Comparison: CT of the abdomen and pelvis 10/31/2016. Technique: Following intravenous administration of 20 mCi of technetium 99m labeled red blood cells utilizing 3 mL PYP, planar images in the anterior projection were captured and stored at 2 second intervals for 30 seconds, followed by 4 minute intervals for the remainder of one hour. Findings: Cine images were additionally reviewed on [place] workstation. Cine images demonstrate faint activity within large bowel that appears to originate in the region of the hepatic flexure, possibly more proximal right colon. Progressive accumulation later in the study within the rectum is suggested with delayed filling of the urinary bladder suggested. Impression: 1. Faint activity is suggested on the cine images with thin transverse large bowel possibly originating near the hepatic flexure. On later images, there is progressive accumulation within the rectum and delayed filling of the urinary bladder is suggested. 12/27/2016 8:53 AM PROCEDURE INTERPRETED AT [facility] DEPARTMENT OF RADIOLOGY Final Report Signed by: Dr. Danny Contreras
--- NOTE | 2016-12-27 09:45 | Gastrointestinal Consult Note ---
<MaycolLetty banegas D - Last Filed: 12/27/16 09:36> Assessment and Plan (1) GI bleed Status: Acute Assessment and plan: 12/27-Sudden onset rectal bleeding with bright red blood mixed with stool. Lower abd cramping. Recent discharge from hospital with GI bleeding, Plavix stopped at discharge. Hgb stable at 9.5 with d/c hgb last month 9.4. GI bleeding scan noted. Endoscopy history noted below. Hemodynamically stable. Monitor serial HH. Transfuse as needed. Plan and addendum to follow by Dr Murillo. Current Visit: No Qualifiers: GI bleed type/associated pathology: melena Qualified Code(s): K92.1 - Melena History of Present Illness Chief complaint: GI bleed History of present illness: Mr. Quintana is a 71 year old male who presented to the hospital with onset of GI bleeding. Pt is a fair historian therefore information also obtained from chart review. Pt states that he was in his usual state of health until last night when he had a sudden onset of bright red rectal bleeding with lower abdominal pain. Pt states that the bleeding started suddenly and was bright red in nature and mixed with stool. He states that he has had upwards of 10 episodes since this started with his last episode this morning. He states that upon discharge from the hospital recently his Plavix was discontinued and he did not resume this at home. He states that he has had no recent weight loss, nausea or vomiting. States that he has had no changes in bowel habits. His admission hemoglobin is noted at 9.5. On admission he also had a bleeding scan which showed faint activity in transverse large bowel originating near the hepatic flexure with progressive accumulation in the rectum. He as recently seen in our facility last month with rectal bleeding. He was on Plavix at that time for history of stents two years prior. He had recent EGD in September with findings of AVMs, GERD and stricture. His last colonoscopy was in December 2012 with fair to poor prep with no large polyps or mass lesions seen. He also had small bowel follow through with no acute findings at that time. Discharge hemoglobin last month (12/18) noted at 9.4. BUN/Cr 21. Home Medications Medication Instructions Recorded Confirmed Type ALPRAZolam [Xanax] 1 mg PO TID 11/07/14 12/27/16 History Cyclobenzaprine [Flexeril] 10 mg PO TID 11/07/14 12/27/16 History Docusate Sodium Cap [Colace Cap] 100 mg PO DAILY 11/07/14 12/27/16 History Ferrous Sulfate Tab [Feosol 325 mg PO TID 11/07/14 12/27/16 History Original Tab] Furosemide 40 mg PO BID 11/07/14 12/27/16 History Insulin Glargine [Lantus] 20 unit SUBCUT BEDTIME 11/07/14 12/27/16 History Rosuvastatin [Crestor] 20 mg PO DAILY 11/07/14 12/27/16 History Zolpidem Tartrate [Ambien] 10 mg PO BEDTIME PRN 11/07/14 12/27/16 History amLODIPine [Norvasc] 10 mg PO DAILY #30 tablet 08/23/16 12/27/16 Rx HYDROcodone/ACETAMIN 10-325 [[place] 1 tablet PO Q6HR PRN 11/03/16 12/27/16 History 10-325] Pantoprazole Tab [Protonix Tab] 40 mg PO DAILY 11/03/16 12/27/16 History Theophylline ER Tab 300 mg PO BID 11/03/16 12/27/16 History Albuterol Sulfate [Ventolin HFA] 2 puff INH Q4H PRN 11/07/16 12/27/16 History Albuterol/Ipratropium Neb [Duoneb] 3 ml RESP TX RT Q4H PRN 11/07/16 12/27/16 History Carvedilol [Coreg] 3.125 mg PO BID #60 tablet 11/19/16 12/27/16 Rx Gabapentin Cap/Tab [Neurontin 100 mg PO TID #90 capsule 11/19/16 12/27/16 Rx Cap/Tab] Losartan [Cozaar] 25 mg PO BID #60 tablet 11/19/16 12/27/16 Rx hydrALAZINE TAB [Apresoline Tab] 25 mg PO BID #60 tablet 11/19/16 12/27/16 Rx Montelukast Sodium 10 mg PO DAILY 12/14/16 12/27/16 History Potassium Chloride 20 meq PO DAILY 12/14/16 12/27/16 History Tiotropium Br/Olodaterol HCl 2 puffs INH DAILY 12/14/16 12/27/16 History [Stiolto Respimat Inhal [place]] Nitroglycerin 0.3 mg SL DIRECTED PRN 12/15/16 12/27/16 History Aspirin 325 mg PO DAILY 12/27/16 12/27/16 History Tramadol HCl [Ultram] 50 mg PO Q6HR PRN 12/27/16 12/27/16 History Allergies Allergy/AdvReac Type Severity Reaction Status Date / Time No Known Allergies Allergy Verified 12/27/16 03:30 Medical,Surgical,& Family Hx - Medical History Cardio: History of: CHF, CAD, Hypertension, RI, Cardiovascular Problems (CABG) No history of: Pacemaker Psychological: History of: Anxiety Disorders (takes xanax for anxirty) Neurology: History of: Cerebrovascular Accident, Dementia No history of: Brain Aneurysm, Seizures HEENT: History of: Ear Problem ([place] in right ear) Endocrine: History of: Diabetes Mellitus (IDDM), Diabetes Mellitus (NIDDM), Dyslipidemia No history of: Thyroid Disorder Rheumatology: History of;: Gout, Rheumatoid Arthritis, Rheumatological Problems (Arthritis) Respiratory: History of: COPD, Pneumonia, Respiratory Problems Renal: History of: Renal Problems (renal insufficiency ) Genitourinary: No history of: Kidney Stones Gastrointestinal: History of: Diverticulitis/ Diverticulosis, Gastrointestinal Bleed, Polyps Musculoskeletal: History of: Back/Neck Problems (constant discomfort), Musculoskeletal Problems No history of: Amputation Hematology: History of: Anemia No history of: Blood Transfusion Reaction - Surgical History Cardiac Surgeries: Sugical HX of: Cardiac Catheterization (6 STENTS), Cardiac Surgery (three-vessel saphenous vein bypass) Patient Denies: Carotid Endarterectomy Thoracic Surgeries: Patient denies;: Organ Transplant Neurologic Surgeries: Surgical HX of: Neurologic Surgery Patient denies: Brain Aneurysm HEENT Surgeries: Patient denies: Carotid Endarterectomy, Eye Surgery, Thyroid Surgery, Tonsilectomy & Adenoidectomy Abdominal Surgeries: Surgical HX of: Colonoscopy, EGD Patient denies: Abdominal Surgery, Appendectomy, Cholecystectomy, Gastric Bypass Surgery, Hernia Repair Reproductive Surgeries: Patient denies;: Genitourinary Surgery Orthopedic Surgeries: Surgical HX of;: Orthopedic Surgery (LEFT hip fx) - Family History Family History: Reports;: Family Cancer (Sister (cervical) Brother (prostate)), Family Diabetes (Mother, Father, Brother), Family Heart Disease (Mother, Father , Brother, Sister), Family Hypertension (Mother, Father, Brother, Sister), Family Stroke (Brother) Denies;: Family Anesthesia Reaction, Family Psychiatric Problems - Social History Smoking Status: Smoker, status unknown Frequency of Alcohol Use: None Type of Drug Use: None 12 point system: reviewed and no additional remarkable complaints except as stated - Constitutional Constitutional: Present: as per HPI - EENT Eyes: Present: as per HPI Ears: Present: as per HPI Nose, mouth and throat: Present: as per HPI - Cardiovascular Cardiovascular: Present: as per HPI - Respiratory Respiratory: Present: as per HPI - Gastrointestinal Gastrointestinal: Present: as per HPI, abdominal pain, hematochezia - Genitourinary Genitourinary: Present: as per HPI - Musculoskeletal Musculoskeletal: Present: as per HPI - Neurological Neurological: Present: as per HPI - Psychiatric Psychiatric: Present: as per HPI - Endocrine Endocrine: Present: as per HPI - Hematologic/Lymphatic Hematologic/Lymphatic: Present: as per HPI Exam - Constitutional Vitals: Period Temp Pulse Resp BP Sys/Leigh Pulse Ox Last 24 Hr 97.2 F-97.2 F 66-66 21-21 150-150/57-57 97 General appearance: normal weight, no acute distress - Head Head exam: Present: normal inspection, normocephalic - Eye Eye exam: Present: other (lids and conjunctiva unremarkable). Absent: scleral icterus - ENT ENT exam: Present: normal exam, normal oropharynx - Neck Neck exam: Present: normal inspection - Respiratory Respiratory exam: Present: clear to auscultation bilaterally. Absent: rales, rhonchi, wheezes - Cardiovascular Cardiovascular exam: Present: regular rate and rhythm. Absent: diastolic murmur , JVD, systolic murmur - GI/Abdominal GI/Abdominal exam: Present: normal bowel sounds, soft. Absent: ascites, distended, mass, organomegaly, tenderness - Extremities Exam Extremities exam: Present: normal inspection, full ROM - Back Exam Back exam: Present: normal inspection - Neurological Exam Neurological exam: Present: alert, oriented X3 - Psychiatric Psychiatric exam: Present: normal affect, normal mood - Skin Skin exam: Present: normal color, warm, dry Results - Labs CBC & BMP: 12/27/16 03:39 12/27/16 03:39 Lab Results: I have reviewed the past 24 hour labs Specialty Discharge - Follow Up or Referrals <Toni Murillo - Last Filed: 12/27/16 22:23> History of Present Illness History of present illness: Mr. Quintana is a 71 year old male Exam - Constitutional Vitals: Period Temp Pulse Resp BP Sys/Leigh Pulse Ox Last 24 Hr 97.0 F-98.6 F 55-88 15-21 115-150/44-72 93-99 Results - Labs CBC & BMP: 12/27/16 21:16 12/27/16 03:39
[2016-12-27 10:01] LABS: Hematocrit 26.1 VOL% (42.0-52.0); Hemoglobin 8.4 GM/DL (14.0-18.0)
[2016-12-27] MEDS: ALBUTEROL/IPRATROPIUM 3 ML NEB RESP TX SCH ×2 (14:00→20:09)
[2016-12-27] MEDS ORDERED: BISACODYL 5 MG TABLET PO ONE (15:00)
[2016-12-27] MEDS ORDERED: POLYETHYLENE GLYCOL POWDER 255 GM BOTTLE PO ONE (15:00)
[2016-12-27] MEDS ORDERED: ALBUTEROL/IPRATROPIUM 3 ML NEB RESP TX PRN (15:02)
[2016-12-27] MEDS ORDERED: ZALEPLON 5 MG CAPSULE PO PRN (15:30)
[2016-12-27 16:00] LABS: Hematocrit 26.1 VOL% (42.0-52.0); Hemoglobin 8.2 GM/DL (14.0-18.0)
[2016-12-27] MEDS: CARVEDILOL 3.125 MG TABLET PO SCH (17:15)
[2016-12-27] MEDS ORDERED: MAGNESIUM CITRATE 300 ML BOTTLE PO ONE (21:00)
[2016-12-27 21:29] LABS: Hematocrit 25.5 VOL% (42.0-52.0); Hemoglobin 8.2 GM/DL (14.0-18.0)
[2016-12-27] MEDS: LOSARTAN 25 MG TABLET PO SCH (21:51)
[2016-12-27] MEDS: THEOPHYLLINE ER 300 MG TABLET PO SCH (21:51)
[2016-12-27] MEDS: FERROUS SULFATE 325 MG TABLET PO SCH (21:52)
[2016-12-27] MEDS: hydrALAZINE 25 MG TABLET PO SCH (21:53)
[2016-12-27] MEDS: CYCLOBENZAPRINE 10 MG TABLET PO SCH (21:53)
[2016-12-27] MEDS: GABAPENTIN 100 MG CAPSULE PO SCH (21:53)
[2016-12-27] MEDS: ALPRAZolam 0.5 MG TABLET PO SCH (21:54)
[2016-12-27] MEDS ORDERED: SODIUM CHLORIDE 0.9% 250 ML IV PRN (23:03)
[2016-12-28] MEDS: ALBUTEROL/IPRATROPIUM 3 ML NEB RESP TX SCH ×4 (01:06→19:22)
--- NOTE | 2016-12-28 08:19 | Hospitalist Progress Note ---
Assessment and Plan (1) Lower GI bleed Status: Acute Assessment and plan: Impression: 1. Lower GI bleed Plan: Await colonoscopy. Continue current management of other chronic problems. Current Visit: Yes Hospitalist: Subjective Interval history: Follow-up lower GI bleed. The patient says that he had a little bleeding yesterday, but none last night or this morning. He is scheduled for colonoscopy later today. GI bleeding scan was questionably positive at the hepatic flexure and right colon. Exam - Constitutional Vitals: Period Temp Pulse Resp BP Sys/Leigh Pulse Ox Last 24 Hr 97.0 F-98.6 F 54-88 15-20 114-142/44-72 93-100 Vital signs are noted above. Heart is regular with no murmur or gallop. Chest is clear with no rales or wheezes. Abdomen is slightly tender, but there is no evidence of any peritoneal irritation. He is awake and alert Results - Labs CBC & BMP: 12/27/16 21:16 12/27/16 03:39 Lab Results: I have reviewed the past 24 hour labs (Hemoglobin is stable) Specialty Discharge - Follow Up or Referrals
[2016-12-28] MEDS: PANTOPRAZOLE 40 MG VIAL IV SCH ×2 (09:09→21:10)
[2016-12-28] MEDS: hydrALAZINE 25 MG TABLET PO SCH ×3 (09:10→21:11)
[2016-12-28] MEDS: CYCLOBENZAPRINE 10 MG TABLET PO SCH ×4 (09:10→21:11)
[2016-12-28] MEDS: DOCUSATE SODIUM 100 MG CAPSULE PO SCH ×2 (09:10→13:44)
[2016-12-28] MEDS: amLODIPine 10 MG TABLET PO SCH ×2 (09:10→13:44)
[2016-12-28] MEDS: LOSARTAN 25 MG TABLET PO SCH ×3 (09:10→21:10)
[2016-12-28] MEDS: ROSUVASTATIN 20 MG TABLET PO SCH ×2 (09:10→13:44)
[2016-12-28] MEDS: FERROUS SULFATE 325 MG TABLET PO SCH ×4 (09:10→21:10)
[2016-12-28] MEDS: GABAPENTIN 100 MG CAPSULE PO SCH ×4 (09:10→21:10)
[2016-12-28] MEDS: CARVEDILOL 3.125 MG TABLET PO SCH ×3 (09:10→16:35)
[2016-12-28] MEDS: ALPRAZolam 0.5 MG TABLET PO SCH ×4 (09:11→21:10)
[2016-12-28] MEDS: THEOPHYLLINE ER 300 MG TABLET PO SCH ×3 (09:11→21:10)
[2016-12-28] MEDS: MONTELUKAST 10 MG TABLET PO SCH ×2 (09:11→13:44)
[2016-12-28 10:13] LABS: Hemoglobin 9.8 GM/DL (14.0-18.0)
[2016-12-28 10:51] LABS: Albumin 3.1 G/DL (3.4-5.0); Calcium 8.4 MG/DL (8.5-10.1); Osmolality,Calculated 288.3 MOS/KG (273-304); Phosphorous 3.6 MG/DL (2.5-4.9); Potassium 4.2 MMOL/L (3.5-5.1)
[2016-12-28] MEDS ORDERED: LIDOCAINE 1% 5 ML VIAL ONE (11:10)
--- NOTE | 2016-12-28 11:44 | History and Physical Update ---
History and Physical Update - Physical Exam Mental Status: alert and oriented Heart: regular rate and rhythm Lung: clear to auscultation Abdomen: within normal limits Vitals: within normal limits
--- NOTE | 2016-12-28 11:47 | Operative Note ---
Date of procedure: 12/28/16 Pre-op diagnosis: Recurrent GI bleeding Procedure: Colonoscopy with hot biopsy polypectomy 71-year-old male with recurrent GI bleeding bleeding scan suggestive potential hepatic flexure source now for colonoscopy. Informed symptoms obtained the patient He was sedated with MAC anesthesia per anesthesia protocol. Patient placed in left lateral decubitus position digital exam revealed no rectal masses normal prostate. The Olympus flexible video colonoscope [place] canal advanced under direct vision level cecum prep was fair. Withdrawal time 9 minutes Findings: Cecum-normal mucosa to identify obvious ago valve appendiceal orifice. Terminal ileum-normal Ascending colon scattered AVMs are seen with no active bleeding. No blood is present in the colon. Transverse colon-no active bleeding no bleeding source identified. Descending colon-polyps 2 each 5 mm hot biopsy fulgurated Sigmoid colon-diverticulosis and polyp 1 6 mm hot biopsy fulgurated Rectum-normal to direct retroflexed views The procedure terminated placed our procedure well his discharge recovery in good condition. Postop diagnosis: 1. Colon polyp 3-follow-up path suspect benign not likely be a source of bleeding 2. Diverticulosis coli-no active bleeding seen but certainly can be a source of recurrent bleeding 3. Right colon AVMs no active bleeding but likely to have additional AVMs and small intestine. Treatment is largely symptomatic and in persistent episode of bleeding consider embolization. Anesthesia: MAC Surgeon / Physician: Toni Murillo Estimated blood loss: none Specimens: none sent Condition: stable Disposition: post procedure unit Results - Labs CBC & BMP: 12/28/16 09:27 12/28/16 09:27 Discharge Plan - Discharge Medications No Action Insulin Glargine [Lantus] 20 unit SUBCUT BEDTIME Rosuvastatin [Crestor] 20 mg PO DAILY Docusate Sodium Cap [Colace Cap] 100 mg PO DAILY Cyclobenzaprine [Flexeril] 10 mg PO TID Ferrous Sulfate Tab [Feosol Original Tab] 325 mg PO TID Zolpidem Tartrate [Ambien] 10 mg PO BEDTIME PRN PRN Reason: Sleep Furosemide 40 mg PO BID ALPRAZolam [Xanax] 1 mg PO TID Pantoprazole Tab [Protonix Tab] 40 mg PO DAILY HYDROcodone/ACETAMIN 10-325 [[place] 10-325] 1 tablet PO Q6HR PRN PRN Reason: Pain Theophylline ER Tab 300 mg PO BID Albuterol/Ipratropium Neb [Duoneb] 3 ml RESP TX RT Q4H PRN PRN Reason: Shortness Of Breath/Wheezing hydrALAZINE TAB [Apresoline Tab] 25 mg PO BID #60 tablet Potassium Chloride 20 meq PO DAILY Tiotropium Br/Olodaterol HCl [Stiolto Respimat Inhal [place]] 2 puffs INH DAILY Nitroglycerin 0.3 mg SL DIRECTED PRN PRN Reason: Chest Pain amLODIPine [Norvasc] 10 mg PO DAILY #30 tablet Albuterol Sulfate [Ventolin HFA] 2 puff INH Q4H PRN PRN Reason: Shortness Of Breath/Wheezing Carvedilol [Coreg] 3.125 mg PO BID #60 tablet Gabapentin Cap/Tab [Neurontin Cap/Tab] 100 mg PO TID #90 capsule Losartan [Cozaar] 25 mg PO BID #60 tablet Montelukast Sodium 10 mg PO DAILY Aspirin 325 mg PO DAILY Tramadol HCl [Ultram] 50 mg PO Q6HR PRN PRN Reason: Pain Moderate (4-7) - Follow Up or Referral - Forms/Instructions Instructions: Gastrointestinal Bleeding (ED)
--- NOTE | 2016-12-28 12:00 | Anesthesia Post-Op ---
Anesthesia Post OP - Post Ansesthetic Evaluation Patient seen in post op: Yes Resp: within normal limits CV: within normal limits Mental: within normal limits Temp: within normal limits [id number]: within normal limits Nausea and Vomiting: within normal limits Pain: within normal limits
[2016-12-28 15:21] LABS: Hematocrit 31.8 VOL% (42.0-52.0); Hemoglobin 9.7 GM/DL (14.0-18.0)
[2016-12-29] MEDS: ALBUTEROL/IPRATROPIUM 3 ML NEB RESP TX SCH ×3 (00:29→13:56)
--- NOTE | 2016-12-29 08:27 | Hospitalist Progress Note ---
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 Monitor vitals. Transfuse to keep hematocrit above 25 or if any signs of hemodynamic instability. Follow this morning's hematocrit level, if stable may consider discharge. Gastroenterology follow-up. Current Visit: Yes Hospitalist: Subjective Interval history: 71-year-old man who is being managed for recurrent GI bleed, he has received 2 units of PRBC with appropriate rising hematocrit. Review of records show that hematocrit has been stable since last transfusion. No new labs this morning. He had an EGD done yesterday, findings as documented below. Diverticulosis coli-no active bleeding seen but certainly can be a source of recurrent bleeding Right colon AVMs no active bleeding but likely to have additional AVMs and small intestine. GI has recommended possible embolization as the mode of therapy if conservative management fails. He has no new complaints this morning. Borderline hemodynamics, no symptoms. Exam - Constitutional Vitals: Period Temp Pulse Resp BP Sys/Leigh Pulse Ox Last 24 Hr 97.4 F-97.8 F 54-73 16-22 100-150/32-76 94-100 Results - Labs CBC & BMP: 12/29/16 08:47 12/28/16 09:27 Specialty Discharge - Follow Up or Referrals
--- NOTE | 2016-12-29 08:49 | Gastrointestinal Progress Note ---
<BernardrosyLetty D - Last Filed: 12/29/16 08:47> Assessment and Plan (1) GI bleed Status: Acute Assessment and plan: 12/29-C scope findings noted. No overt bleeding. Tolerating diet. Pathology pending from polyps. Plan an addendum to follow Dr. Murillo. 12/27-Sudden onset rectal bleeding with bright red blood mixed with stool. Lower abd cramping. Recent discharge from hospital with GI bleeding, Plavix stopped at discharge. Hgb stable at 9.5 with d/c hgb last month 9.4. GI bleeding scan noted. Endoscopy history noted below. Hemodynamically stable. Monitor serial HH. Transfuse as needed. Plan and addendum to follow by Dr Murillo. Current Visit: No Qualifiers: GI bleed type/associated pathology: melena Qualified Code(s): K92.1 - Melena Gastroenterology - PN: Subj Interval history: CC: GI bleed Patient is seen awake alert sitting up in bed. States he had a restful night. He has had a bowel movement on yesterday with just small amount of dark stool noted. Denies any overt bleeding. States that on yesterday with findings of colon polyps 3 with pathology pending. Also diverticulosis without active bleeding and right colon AVMs with no active bleeding noted. Hemoglobin has remained stable at this time. He is tolerating his diet well. Denies any abdominal pain, nausea vomiting. ROS: Denies shortness of breath or chest pain Exam (Progress Note) - Constitutional Vitals: Period Temp Pulse Resp BP Sys/Leigh Pulse Ox Last 24 Hr 97.4 F-97.8 F 54-73 16-22 100-150/32-76 94-100 General appearance: normal weight, no acute distress - Head Head exam: Present: normal inspection, normocephalic - Eye Eye exam: Present: other (Lids and conjunctive are unremarkable). Absent: scleral icterus - ENT ENT exam: Present: normal exam, normal oropharynx - Neck Neck exam: Present: normal inspection - Respiratory Respiratory exam: Present: clear to auscultation bilaterally. Absent: rales, rhonchi, wheezes - Cardiovascular Cardiovascular exam: Present: regular rate and rhythm. Absent: diastolic murmur , JVD, systolic murmur - GI/Abdominal GI/Abdominal exam: Present: normal bowel sounds, soft. Absent: ascites, distended, mass, organomegaly, tenderness - Extremities Exam Extremities exam: Present: normal inspection, full ROM - Back Exam Back exam: Present: normal inspection - Neurological Exam Neurological exam: Present: alert, oriented X3 - Psychiatric Psychiatric exam: Present: normal affect, normal mood - Skin Skin exam: Present: normal color, warm, dry Results - Labs CBC & BMP: 12/28/16 15:06 12/28/16 09:27 Lab Results: I have reviewed the past 24 hour labs Specialty Discharge - Follow Up or Referrals <Toni Murillo - Last Filed: 12/29/16 10:27> Exam (Progress Note) - Constitutional Vitals: Period Temp Pulse Resp BP Sys/Leigh Pulse Ox Last 24 Hr 97.4 F-97.8 F 54-73 16-20 100-139/32-67 94-100 Results - Labs CBC & BMP: 12/29/16 08:47 12/28/16 09:27
[2016-12-29 08:54] LABS: Basophils % 0.6 % (0.0-0.8); Eosinophils # 0.2 10*3/uL (0.0-0.87); Eosinophils % 6.3 % (0.00-10.9); Hematocrit 28.2 VOL% (42.0-52.0); Hemoglobin 9.2 GM/DL (14.0-18.0); Lymphocytes # 0.7 10*3/uL (1.4-4.0); Lymphocytes % 19.2 % (21.2-54.2); Mean Corpuscular HGB Conc 32.6 GM/DL (32-36); Mean Corpuscular Hemoglobin 30 PG (27-34); Mean Corpuscular Volume 90.4 FL (87-102); Mean Platelet Volume 9.3 FL (9.6-12.0); Monocytes # 0.3 10*3/uL (0.11-0.8); Monocytes % 9.5 % (1.7-12.7); Neutrophils # 2.3 10*3/uL (1.4-7.4); Neutrophils % 64.4 % (38.7-73.9); Platelet Count 110 T/CUMM (130-400); Red Blood Count 3.12 MC/CUMM (3.8-5.5); Red Cell Distribution Width 14.8 % (9.3-17.3); White Blood Count 3.5 T/CUMM (4-12)
[2016-12-29] MEDS: hydrALAZINE 25 MG TABLET PO SCH (08:56)
[2016-12-29] MEDS: CARVEDILOL 3.125 MG TABLET PO SCH (08:56)
[2016-12-29] MEDS: amLODIPine 10 MG TABLET PO SCH (08:57)
[2016-12-29] MEDS: ALPRAZolam 0.5 MG TABLET PO SCH ×2 (08:59→14:23)
[2016-12-29] MEDS: FERROUS SULFATE 325 MG TABLET PO SCH ×2 (08:59→14:23)
[2016-12-29] MEDS: THEOPHYLLINE ER 300 MG TABLET PO SCH (08:59)
[2016-12-29] MEDS: ROSUVASTATIN 20 MG TABLET PO SCH (08:59)
[2016-12-29] MEDS: DOCUSATE SODIUM 100 MG CAPSULE PO SCH (08:59)
[2016-12-29] MEDS: PANTOPRAZOLE 40 MG VIAL IV SCH (08:59)
[2016-12-29] MEDS: LOSARTAN 25 MG TABLET PO SCH (09:00)
[2016-12-29] MEDS: MONTELUKAST 10 MG TABLET PO SCH (09:00)
[2016-12-29] MEDS: GABAPENTIN 100 MG CAPSULE PO SCH ×2 (09:00→14:23)
[2016-12-29] MEDS: CYCLOBENZAPRINE 10 MG TABLET PO SCH ×2 (09:00→14:23)
[2016-12-29 11:44] VITALS: BP 123/55
--- NOTE | 2016-12-29 13:30 | Discharge Summary ---
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 (4) Hyperlipidemia associated with type 2 diabetes mellitus Status: Acute (5) GI bleed Status: Acute (6) Lower GI bleed Status: Acute Specialty Discharge - Follow Up or Referrals Discharge Plan - Discharge Medications Continue Insulin Glargine [Lantus] 20 unit SUBCUT BEDTIME Rosuvastatin [Crestor] 20 mg PO DAILY Docusate Sodium Cap [Colace Cap] 100 mg PO DAILY Cyclobenzaprine [Flexeril] 10 mg PO TID Ferrous Sulfate Tab [Feosol Original Tab] 325 mg PO TID Zolpidem Tartrate [Ambien] 10 mg PO BEDTIME PRN PRN Reason: Sleep Furosemide 40 mg PO BID ALPRAZolam [Xanax] 1 mg PO TID HYDROcodone/ACETAMIN 10-325 [[place] 10-325] 1 tablet PO Q6HR PRN PRN Reason: Pain Theophylline ER Tab 300 mg PO BID Albuterol/Ipratropium Neb [Duoneb] 3 ml RESP TX RT Q4H PRN PRN Reason: Shortness Of Breath/Wheezing hydrALAZINE TAB [Apresoline Tab] 25 mg PO BID #60 tablet Potassium Chloride 20 meq PO DAILY Tiotropium Br/Olodaterol HCl [Stiolto Respimat Inhal [place]] 2 puffs INH DAILY Nitroglycerin 0.3 mg SL DIRECTED PRN PRN Reason: Chest Pain amLODIPine [Norvasc] 10 mg PO DAILY #30 tablet Albuterol Sulfate [Ventolin HFA] 2 puff INH Q4H PRN PRN Reason: Shortness Of Breath/Wheezing Carvedilol [Coreg] 3.125 mg PO BID #60 tablet Gabapentin Cap/Tab [Neurontin Cap/Tab] 100 mg PO TID #90 capsule Losartan [Cozaar] 25 mg PO BID #60 tablet Montelukast Sodium 10 mg PO DAILY Aspirin 325 mg PO DAILY Tramadol HCl [Ultram] 50 mg PO Q6HR PRN PRN Reason: Pain Moderate (4-7) Changed Pantoprazole Tab [Protonix Tab] 40 mg PO BID #60 - Follow Up or Referral - Forms/Instructions Instructions: Gastrointestinal Bleeding (ED) Additional Discharge Instructions: Annal[facility]PC[facility]. PCP follow in 2-4 weeks Exam - Constitutional Vitals: Period Temp Pulse Resp BP Sys/Leigh Pulse Ox Last 24 Hr 97.4 F-97.8 F 54-73 16-20 100-131/32-55 95-98 Discharge Results Procedures and tests throughout hospitalization: Pending Orders 12/30/16 04:00 CBC [Comp Blood Count Auto Diff] IN AM Labs on day of discharge: Labs from last 24 hours 12/29/16 12/29/16 12/29/16 11:37 08:47 06:52 WBC 3.5 L D RBC 3.12 L Hgb 9.2 L Hct 28.2 L MCV 90.4 MCH 30 MCHC 32.6 RDW 14.8 Plt Count 110 L D MPV 9.3 L Neut % (Auto) 64.4 Lymph % (Auto) 19.2 L [place] % (Auto) 9.5 Eos % (Auto) 6.3 Baso % (Auto) 0.6 Neut # (Auto) 2.3 Lymph # (Auto) 0.7 L [place] # (Auto) 0.3 Eos # (Auto) 0.2 Baso # (Auto) 0.0 Immature Gran % 0.0 Nucleated RBC % 0.0 Immature Gran # 0.00 Nucleated RBCs # 0.00 POC Glucose 176 H 126 H 12/28/16 15:06 WBC RBC Hgb 9.7 L Hct 31.8 L MCV MCH MCHC RDW Plt Count MPV Neut % (Auto) Lymph % (Auto) [place] % (Auto) Eos % (Auto) Baso % (Auto) Neut # (Auto) Lymph # (Auto) [place] # (Auto) Eos # (Auto) Baso # (Auto) Immature Gran % Nucleated RBC % Immature Gran # Nucleated RBCs # POC Glucose DS: Provider Date of admission: 12/27/16 05:26 Primary care physician: . No PCP Attending physician on admission: Bladimir York MD Consults: 12/27/16 05:32 Consult to Physician [CONS] Routine Comment: Dr. Murillo Consulting Provider: Toni Murillo Consult to Specialist Group: Gastroenterology When should Consulting Provider be notified: In am Person Notified: SARA Date Notified: 12/27/16 Time Notified: 07:29 12/29/16 09:17 Consult to Case Mgmt/Social Srvs [CONS] Routine Reason for Case Mgmt/Social Srvs: Home Health Discharging clinician: Leif Patterson MD
== END 2016-12-29 16:05 | disposition home health service (06) | DRG 378 ==
LOC: N.ED 03:20 → N.EDINP 05:26 → SUATTDRO 05:26 → N.2E 05:55
PROVIDERS: ADMIT Internal Medicine Infectious Disease; ATTEND Internal Medicine

== ENCOUNTER 2017-06-19 20:05 | Inpatient (IN) ==
[2017-06-19] MEDS ORDERED: INFLUENZA VIRUS VACCINE 0.5 ML SYRINGE IM ONE (22:14)
[2017-06-19] MEDS ORDERED: ONDANSETRON 4 MG/2 ML VIAL IV PRN (22:37)
[2017-06-19] MEDS ORDERED: SODIUM CHLORIDE 0.9% 1,000 ML IV PRN (22:41)
[2017-06-19] MEDS ORDERED: GLUCAGON 1 MG VIAL IM PRN (22:49)
[2017-06-19] MEDS ORDERED: DEXTROSE 50% 25 GM/50 ML VIAL IV PRN (22:49)
[2017-06-19] MEDS: LEVOFLOXACIN INJ 500 MG in PREMIX 1 EACH IV SCH (23:58)
[2017-06-20 00:44] LABS: Hematocrit 19.6 VOL% (42.0-52.0); Hemoglobin 6.4 GM/DL (14.0-18.0)
[2017-06-20] MEDS ORDERED: SODIUM CHLORIDE 0.9% 1,000 ML IV PRN (00:52)
[2017-06-20 01:50] LABS: PT Patient Result 10.3 SECS
[2017-06-20 02:12] LABS: Troponin I Only 0.082 NG/ML (0.00-0.045)
[2017-06-20 02:20] LABS: Alanine Aminotransferase 18 U/L (16-61); Albumin 3.1 G/DL (3.4-5.0); Alkaline Phosphatase 51 U/L (45-117); Aspartate Amino Transferase 18 U/L (0-37); Bilirubin,Total < 0.39 MG/DL (0.2-1.0); Blood Urea Nitrogen 62 MG/DL (7-18); Calcium 8.1 MG/DL (8.5-10.1); Glucose 163 MG/DL (74-106); Osmolality,Calculated 300.4 MOS/KG (273-304); Potassium 4.1 MMOL/L (3.5-5.1); Sodium 140 MMOL/L (136-145); Total Protein 5.5 G/DL (6.4-8.3)
[2017-06-20 05:57] LABS: Hematocrit 19.3 VOL% (42.0-52.0)
[2017-06-20 06:20] LABS: Hemoglobin 6.4 GM/DL (14.0-18.0)
[2017-06-20] MEDS: INSULIN REGULAR 100 UNIT/ML SUBCUT SCH ×4 (08:37→21:38)
[2017-06-20] MEDS: PANTOPRAZOLE 40 MG VIAL IV SCH ×2 (08:43→22:12)
[2017-06-20] MEDS: THEOPHYLLINE ER 300 MG TABLET PO SCH ×2 (12:09→21:39)
[2017-06-20] MEDS: hydrALAZINE 25 MG TABLET PO SCH ×2 (12:09→21:40)
[2017-06-20] MEDS: amLODIPine 10 MG TABLET PO SCH (12:09)
[2017-06-20] MEDS: MONTELUKAST 10 MG TABLET PO SCH (12:09)
[2017-06-20] MEDS: CARVEDILOL 3.125 MG TABLET PO SCH ×2 (12:09→21:39)
[2017-06-20 15:42] LABS: Hematocrit 22.7 VOL% (42.0-52.0); Hemoglobin 7.6 GM/DL (14.0-18.0)
[2017-06-20 16:02] LABS: CKMB % 5.2 %
[2017-06-20 16:04] LABS: Troponin I Only 0.091 NG/ML (0.00-0.045)
[2017-06-20] MEDS: FERROUS SULFATE 325 MG TABLET PO SCH ×2 (16:08→21:39)
[2017-06-20] MEDS: ALPRAZolam 0.5 MG TABLET PO SCH ×2 (16:08→21:39)
[2017-06-20] MEDS: GABAPENTIN 100 MG CAPSULE PO SCH ×2 (16:08→21:39)
[2017-06-20 21:36] LABS: Hematocrit 21.5 VOL% (42.0-52.0); Hemoglobin 7.1 GM/DL (14.0-18.0)
[2017-06-20] MEDS: FUROSEMIDE 40 MG TABLET PO SCH (21:39)
[2017-06-20] MEDS: LOSARTAN 25 MG TABLET PO SCH (21:39)
[2017-06-20] MEDS: ROSUVASTATIN 20 MG TABLET PO SCH (21:39)
[2017-06-20] MEDS: LEVOFLOXACIN INJ 500 MG in PREMIX 1 EACH IV SCH (22:11)
[2017-06-21 04:27] LABS: Basophils % 0.5 % (0.0-0.8); Eosinophils # 0.2 10*3/uL (0.0-0.87); Eosinophils % 5.1 % (0.00-10.9); Hematocrit 20.2 VOL% (42.0-52.0); Hemoglobin 6.8 GM/DL (14.0-18.0); Immature Granulocytes % 0.3 %; Immature Granulocytes Absolute 0.01 #; Lymphocytes # 0.7 10*3/uL (1.4-4.0); Lymphocytes % 17.4 % (21.2-54.2); Mean Corpuscular HGB Conc 33.7 GM/DL (32-36); Mean Corpuscular Hemoglobin 30 PG (27-34); Mean Corpuscular Volume 89.4 FL (87-102); Mean Platelet Volume 9.9 FL (9.6-12.0); Monocytes # 0.4 10*3/uL (0.11-0.8); Monocytes % 10.4 % (1.7-12.7); Neutrophils # 2.5 10*3/uL (1.4-7.4); Neutrophils % 66.3 % (38.7-73.9); Platelet Count 88 T/CUMM (130-400); Red Blood Count 2.26 MC/CUMM (3.8-5.5); Red Cell Distribution Width 15.6 % (9.3-17.3); White Blood Count 3.7 T/CUMM (4-12)
[2017-06-21 04:52] LABS: Hypochromasia 1+; Ovalocytes Slight; Platelet Estimate Decreased
[2017-06-21 04:53] LABS: Giant Platelets Few
[2017-06-21 05:05] LABS: Calcium 7.4 MG/DL (8.5-10.1); Magnesium 2.1 MG/DL (1.8-2.4); Osmolality,Calculated 294.1 MOS/KG (273-304); Potassium 4.2 MMOL/L (3.5-5.1)
[2017-06-21] MEDS: INSULIN REGULAR 100 UNIT/ML SUBCUT SCH ×4 (08:33→20:51)
[2017-06-21] MEDS: amLODIPine 10 MG TABLET PO SCH (08:34)
[2017-06-21] MEDS: THEOPHYLLINE ER 300 MG TABLET PO SCH ×2 (08:35→20:39)
[2017-06-21] MEDS: FUROSEMIDE 40 MG TABLET PO SCH ×2 (08:35→20:39)
[2017-06-21] MEDS: PANTOPRAZOLE 40 MG VIAL IV SCH ×2 (08:35→21:47)
[2017-06-21] MEDS: FERROUS SULFATE 325 MG TABLET PO SCH ×3 (08:35→20:39)
[2017-06-21] MEDS: ALPRAZolam 0.5 MG TABLET PO SCH ×3 (08:35→20:39)
[2017-06-21] MEDS: hydrALAZINE 25 MG TABLET PO SCH ×2 (08:35→20:39)
[2017-06-21] MEDS: POTASSIUM CHLORIDE 20 MEQ TABLET PO SCH (08:35)
[2017-06-21] MEDS: GABAPENTIN 100 MG CAPSULE PO SCH ×3 (08:35→20:39)
[2017-06-21] MEDS: LOSARTAN 25 MG TABLET PO SCH ×2 (08:35→20:40)
[2017-06-21] MEDS: CARVEDILOL 3.125 MG TABLET PO SCH ×2 (08:35→20:40)
[2017-06-21] MEDS ORDERED: SODIUM CHLORIDE 0.9% 1,000 ML IV PRN (09:47)
[2017-06-21] MEDS: MONTELUKAST 10 MG TABLET PO SCH (11:08)
[2017-06-21] MEDS ORDERED: FUROSEMIDE 40 MG/4 ML VIAL IV ONE (12:21)
[2017-06-21] MEDS: ROSUVASTATIN 20 MG TABLET PO SCH (20:39)
[2017-06-21] MEDS: LEVOFLOXACIN INJ 500 MG in PREMIX 1 EACH IV SCH (21:48)
[2017-06-22 05:39] LABS: Basophils % 0.8 % (0.0-0.8); Eosinophils # 0.3 10*3/uL (0.0-0.87); Eosinophils % 7.2 % (0.00-10.9); Hemoglobin 8.9 GM/DL (14.0-18.0); Immature Granulocytes % 0.5 %; Immature Granulocytes Absolute 0.02 #; Lymphocytes # 0.8 10*3/uL (1.4-4.0); Lymphocytes % 20.1 % (21.2-54.2); Mean Corpuscular HGB Conc 34.2 GM/DL (32-36); Mean Corpuscular Hemoglobin 30 PG (27-34); Mean Corpuscular Volume 87.8 FL (87-102); Mean Platelet Volume 10.1 FL (9.6-12.0); Monocytes # 0.4 10*3/uL (0.11-0.8); Monocytes % 10.6 % (1.7-12.7); Neutrophils # 2.4 10*3/uL (1.4-7.4); Neutrophils % 60.8 % (38.7-73.9); Platelet Count 104 T/CUMM (130-400); Red Blood Count 2.96 MC/CUMM (3.8-5.5); Red Cell Distribution Width 15.3 % (9.3-17.3); White Blood Count 3.9 T/CUMM (4-12)
[2017-06-22 06:12] LABS: Calcium 7.8 MG/DL (8.5-10.1); Magnesium 2.1 MG/DL (1.8-2.4); Osmolality,Calculated 290.1 MOS/KG (273-304)
[2017-06-22] MEDS: GABAPENTIN 100 MG CAPSULE PO SCH ×3 (10:29→20:37)
[2017-06-22] MEDS: hydrALAZINE 25 MG TABLET PO SCH ×2 (10:30→20:37)
[2017-06-22] MEDS: POTASSIUM CHLORIDE 20 MEQ TABLET PO SCH (10:30)
[2017-06-22] MEDS: THEOPHYLLINE ER 300 MG TABLET PO SCH ×2 (10:30→20:36)
[2017-06-22] MEDS: MONTELUKAST 10 MG TABLET PO SCH (10:30)
[2017-06-22] MEDS: FERROUS SULFATE 325 MG TABLET PO SCH ×3 (10:30→20:36)
[2017-06-22] MEDS: FUROSEMIDE 40 MG TABLET PO SCH ×2 (10:30→20:37)
[2017-06-22] MEDS: CARVEDILOL 3.125 MG TABLET PO SCH ×2 (10:31→20:37)
[2017-06-22] MEDS: amLODIPine 10 MG TABLET PO SCH (10:31)
[2017-06-22] MEDS: LOSARTAN 25 MG TABLET PO SCH ×2 (10:31→20:37)
[2017-06-22] MEDS: ALPRAZolam 0.5 MG TABLET PO SCH ×3 (10:31→20:36)
[2017-06-22] MEDS: PANTOPRAZOLE 40 MG VIAL IV SCH (10:31)
[2017-06-22] MEDS: INSULIN REGULAR 100 UNIT/ML SUBCUT SCH ×3 (10:32→20:45)
[2017-06-22 16:49] LABS: CKMB % 5.5 %; Calcium 7.9 MG/DL (8.5-10.1); Free T4 (Free Thyroxine) 1.15 NG/DL (0.76-1.46); Magnesium 2.1 MG/DL (1.8-2.4); Osmolality,Calculated 286.3 MOS/KG (273-304); Potassium 4.2 MMOL/L (3.5-5.1); Thyroid Stimulating Hormone 2.23 uIU/ml (0.358-3.74)
[2017-06-22 16:50] LABS: Troponin I Only 0.059 NG/ML (0.00-0.045)
[2017-06-22] MEDS: PANTOPRAZOLE 40 MG TABLET PO SCH (19:43)
[2017-06-22] MEDS: ROSUVASTATIN 20 MG TABLET PO SCH (20:36)
[2017-06-22] MEDS: LEVOFLOXACIN INJ 500 MG in PREMIX 1 EACH IV SCH (20:38)
[2017-06-23] MEDS: FERROUS SULFATE 325 MG TABLET PO SCH ×3 (09:04→20:51)
[2017-06-23] MEDS: ALPRAZolam 0.5 MG TABLET PO SCH ×3 (09:04→20:52)
[2017-06-23] MEDS: amLODIPine 10 MG TABLET PO SCH (09:04)
[2017-06-23] MEDS: FUROSEMIDE 40 MG TABLET PO SCH ×2 (09:04→20:51)
[2017-06-23] MEDS: THEOPHYLLINE ER 300 MG TABLET PO SCH ×2 (09:05→20:52)
[2017-06-23] MEDS: CARVEDILOL 3.125 MG TABLET PO SCH ×2 (09:05→20:51)
[2017-06-23] MEDS: MONTELUKAST 10 MG TABLET PO SCH (09:05)
[2017-06-23] MEDS: PANTOPRAZOLE 40 MG TABLET PO SCH ×2 (09:05→20:51)
[2017-06-23] MEDS: POTASSIUM CHLORIDE 20 MEQ TABLET PO SCH (09:05)
[2017-06-23] MEDS: LOSARTAN 25 MG TABLET PO SCH (09:05)
[2017-06-23] MEDS: GABAPENTIN 100 MG CAPSULE PO SCH ×3 (09:05→20:52)
[2017-06-23] MEDS: INSULIN REGULAR 100 UNIT/ML SUBCUT SCH ×3 (09:09→20:50)
[2017-06-23] MEDS: hydrALAZINE 25 MG TABLET PO SCH ×2 (09:09→20:52)
[2017-06-23 09:15] LABS: Basophils % 0.5 % (0.0-0.8); Eosinophils # 0.2 10*3/uL (0.0-0.87); Eosinophils % 5.2 % (0.00-10.9); Hematocrit 26.6 VOL% (42.0-52.0); Immature Granulocytes % 0.5 %; Immature Granulocytes Absolute 0.02 #; Lymphocytes # 0.7 10*3/uL (1.4-4.0); Mean Corpuscular HGB Conc 33.8 GM/DL (32-36); Mean Corpuscular Hemoglobin 30 PG (27-34); Mean Corpuscular Volume 89.3 FL (87-102); Mean Platelet Volume 11.1 FL (9.6-12.0); Monocytes # 0.3 10*3/uL (0.11-0.8); Monocytes % 8.2 % (1.7-12.7); Neutrophils # 2.5 10*3/uL (1.4-7.4); Neutrophils % 67.6 % (38.7-73.9); Platelet Count 88 T/CUMM (130-400); Red Blood Count 2.98 MC/CUMM (3.8-5.5); Red Cell Distribution Width 15.8 % (9.3-17.3); White Blood Count 3.7 T/CUMM (4-12)
[2017-06-23 09:48] LABS: Calcium 7.7 MG/DL (8.5-10.1); Magnesium 2.1 MG/DL (1.8-2.4); Osmolality,Calculated 293.1 MOS/KG (273-304); Potassium 4.5 MMOL/L (3.5-5.1)
[2017-06-23 09:53] LABS: Anisocytosis Slight; Macrocytosis Slight; Platelet Estimate Decreased
[2017-06-23] MEDS ORDERED: ALBUTEROL/IPRATROPIUM 3 ML NEB RESP TX ONE (10:31)
[2017-06-23] MEDS ORDERED: ALBUTEROL/IPRATROPIUM 3 ML NEB RESP TX PRN (10:31)
[2017-06-23] MEDS: ROSUVASTATIN 20 MG TABLET PO SCH (20:51)
[2017-06-23] MEDS: LEVOFLOXACIN INJ 500 MG in PREMIX 1 EACH IV SCH (20:59)
[2017-06-24 04:00] LABS: Basophils % 0.6 % (0.0-0.8); Eosinophils # 0.2 10*3/uL (0.0-0.87); Eosinophils % 6.2 % (0.00-10.9); Hematocrit 24.6 VOL% (42.0-52.0); Hemoglobin 8.4 GM/DL (14.0-18.0); Immature Granulocytes % 0.6 %; Immature Granulocytes Absolute 0.02 #; Lymphocytes # 0.8 10*3/uL (1.4-4.0); Lymphocytes % 23.2 % (21.2-54.2); Mean Corpuscular HGB Conc 34.1 GM/DL (32-36); Mean Corpuscular Hemoglobin 31 PG (27-34); Mean Corpuscular Volume 89.8 FL (87-102); Mean Platelet Volume 10.1 FL (9.6-12.0); Monocytes # 0.4 10*3/uL (0.11-0.8); Monocytes % 10.5 % (1.7-12.7); Neutrophils # 2.1 10*3/uL (1.4-7.4); Neutrophils % 58.9 % (38.7-73.9); Platelet Count 100 T/CUMM (130-400); Red Blood Count 2.74 MC/CUMM (3.8-5.5); White Blood Count 3.5 T/CUMM (4-12)
[2017-06-24 04:30] LABS: Calcium 7.8 MG/DL (8.5-10.1); Magnesium 2.1 MG/DL (1.8-2.4); Osmolality,Calculated 293.1 MOS/KG (273-304); Potassium 4.1 MMOL/L (3.5-5.1)
[2017-06-24] MEDS: hydrALAZINE 25 MG TABLET PO SCH ×2 (08:36→22:15)
[2017-06-24] MEDS: FUROSEMIDE 40 MG TABLET PO SCH ×2 (08:36→22:15)
[2017-06-24] MEDS: MONTELUKAST 10 MG TABLET PO SCH (08:37)
[2017-06-24] MEDS: GABAPENTIN 100 MG CAPSULE PO SCH ×3 (08:37→22:15)
[2017-06-24] MEDS: ALPRAZolam 0.5 MG TABLET PO SCH ×3 (08:37→22:15)
[2017-06-24] MEDS: amLODIPine 10 MG TABLET PO SCH (08:37)
[2017-06-24] MEDS: THEOPHYLLINE ER 300 MG TABLET PO SCH ×2 (08:37→22:15)
[2017-06-24] MEDS: POTASSIUM CHLORIDE 20 MEQ TABLET PO SCH (08:38)
[2017-06-24] MEDS: FERROUS SULFATE 325 MG TABLET PO SCH ×3 (08:38→22:14)
[2017-06-24] MEDS: INSULIN REGULAR 100 UNIT/ML SUBCUT SCH ×4 (08:38→22:15)
[2017-06-24] MEDS: PANTOPRAZOLE 40 MG TABLET PO SCH ×2 (08:38→22:14)
[2017-06-24] MEDS: CARVEDILOL 3.125 MG TABLET PO SCH ×2 (08:39→22:15)
[2017-06-24] MEDS ORDERED: FUROSEMIDE 20 MG/2 ML VIAL IV PRN (13:04)
[2017-06-24] MEDS ORDERED: SODIUM CHLORIDE 0.9% 1,000 ML IV PRN ×2 (13:04→17:52)
[2017-06-24] MEDS: ROSUVASTATIN 20 MG TABLET PO SCH (22:14)
[2017-06-25] MEDS: LEVOFLOXACIN INJ 500 MG in PREMIX 1 EACH IV SCH ×2 (01:01→22:30)
[2017-06-25 04:06] LABS: Basophils % 0.5 % (0.0-0.8); Eosinophils # 0.2 10*3/uL (0.0-0.87); Eosinophils % 5.4 % (0.00-10.9); Hematocrit 30.9 VOL% (42.0-52.0); Hemoglobin 10.6 GM/DL (14.0-18.0); Immature Granulocytes % 0.5 %; Immature Granulocytes Absolute 0.02 #; Lymphocytes # 0.8 10*3/uL (1.4-4.0); Lymphocytes % 19.3 % (21.2-54.2); Mean Corpuscular HGB Conc 34.3 GM/DL (32-36); Mean Corpuscular Hemoglobin 30 PG (27-34); Mean Corpuscular Volume 88.3 FL (87-102); Monocytes # 0.4 10*3/uL (0.11-0.8); Monocytes % 9.3 % (1.7-12.7); Neutrophils # 2.7 10*3/uL (1.4-7.4); Platelet Count 91 T/CUMM (130-400); Red Cell Distribution Width 15.4 % (9.3-17.3); White Blood Count 4.1 T/CUMM (4-12)
[2017-06-25 04:29] LABS: Calcium 7.9 MG/DL (8.5-10.1); Magnesium 2.1 MG/DL (1.8-2.4); Osmolality,Calculated 291.3 MOS/KG (273-304)
[2017-06-25 04:52] LABS: Band Neutrophils 4 % (0-10); Eosinophils 3 % (0-10); Lymphocytes 21 % (20-55); Myelocytes 2 %; Segmented Neutrophils 68 % (50-85); Total Cells Counted 100
[2017-06-25 04:53] LABS: Anisocytosis 1+; Ovalocytes Few; Platelet Estimate Decreased
[2017-06-25] MEDS: PANTOPRAZOLE 40 MG TABLET PO SCH ×2 (06:07→18:17)
[2017-06-25] MEDS: INSULIN REGULAR 100 UNIT/ML SUBCUT SCH ×4 (08:20→22:30)
[2017-06-25] MEDS: ALPRAZolam 0.5 MG TABLET PO SCH ×3 (08:25→22:30)
[2017-06-25] MEDS: GABAPENTIN 100 MG CAPSULE PO SCH ×3 (08:25→22:30)
[2017-06-25] MEDS: FERROUS SULFATE 325 MG TABLET PO SCH ×3 (08:25→22:30)
[2017-06-25] MEDS: CARVEDILOL 3.125 MG TABLET PO SCH ×2 (09:23→22:34)
[2017-06-25] MEDS ORDERED: PROPOFOL 200 MG/20 ML VIAL IV ONE (10:35)
[2017-06-25] MEDS ORDERED: LIDOCAINE 1% 5 ML VIAL ONE (10:35)
[2017-06-25] MEDS: FUROSEMIDE 40 MG TABLET PO SCH ×2 (12:52→22:29)
[2017-06-25] MEDS: POTASSIUM CHLORIDE 20 MEQ TABLET PO SCH (12:52)
[2017-06-25] MEDS: hydrALAZINE 25 MG TABLET PO SCH ×2 (12:52→22:29)
[2017-06-25] MEDS: THEOPHYLLINE ER 300 MG TABLET PO SCH ×2 (12:53→22:29)
[2017-06-25] MEDS: amLODIPine 10 MG TABLET PO SCH (12:53)
[2017-06-25] MEDS: MONTELUKAST 10 MG TABLET PO SCH (12:53)
[2017-06-25] MEDS: ROSUVASTATIN 20 MG TABLET PO SCH (22:34)
[2017-06-26 05:34] LABS: Basophils % 0.7 % (0.0-0.8); Eosinophils # 0.3 10*3/uL (0.0-0.87); Hematocrit 33.5 VOL% (42.0-52.0); Hemoglobin 11.4 GM/DL (14.0-18.0); Immature Granulocytes % 0.4 %; Immature Granulocytes Absolute 0.02 #; Lymphocytes # 0.7 10*3/uL (1.4-4.0); Lymphocytes % 16.1 % (21.2-54.2); Mean Corpuscular Hemoglobin 30 PG (27-34); Mean Corpuscular Volume 88.9 FL (87-102); Mean Platelet Volume 10.5 FL (9.6-12.0); Monocytes # 0.5 10*3/uL (0.11-0.8); Monocytes % 10.6 % (1.7-12.7); Neutrophils % 65.2 % (38.7-73.9); Platelet Count 102 T/CUMM (130-400); Red Blood Count 3.77 MC/CUMM (3.8-5.5); Red Cell Distribution Width 15.9 % (9.3-17.3); White Blood Count 4.5 T/CUMM (4-12)
[2017-06-26] MEDS: PANTOPRAZOLE 40 MG TABLET PO SCH (07:44)
[2017-06-26] MEDS: INSULIN REGULAR 100 UNIT/ML SUBCUT SCH ×2 (07:53→12:21)
[2017-06-26] MEDS: GABAPENTIN 100 MG CAPSULE PO SCH (07:59)
[2017-06-26] MEDS: CARVEDILOL 3.125 MG TABLET PO SCH (07:59)
[2017-06-26] MEDS: FUROSEMIDE 40 MG TABLET PO SCH (08:00)
[2017-06-26] MEDS: ALPRAZolam 0.5 MG TABLET PO SCH (08:00)
[2017-06-26] MEDS: THEOPHYLLINE ER 300 MG TABLET PO SCH (08:00)
[2017-06-26] MEDS: hydrALAZINE 25 MG TABLET PO SCH (08:00)
[2017-06-26] MEDS: FERROUS SULFATE 325 MG TABLET PO SCH (08:01)
[2017-06-26] MEDS: POTASSIUM CHLORIDE 20 MEQ TABLET PO SCH (08:01)
[2017-06-26] MEDS: amLODIPine 10 MG TABLET PO SCH (08:01)
[2017-06-26] MEDS: MONTELUKAST 10 MG TABLET PO SCH (08:01)
[2017-06-26 11:51] VITALS: BP 139/65
== END 2017-06-26 14:20 | disposition home health service (06) | DRG 378 ==
LOC: N.2E 21:35 → SUATTDRO 21:35
PROVIDERS: ADMIT Internal Medicine; ATTEND Internal Medicine

== ENCOUNTER 2017-08-17 12:44 | Inpatient (IN) ==
[2017-08-17 16:31] LABS: Basophils # 0.1 10*3/uL (0.0-0.2); Basophils % 1.3 % (0.0-0.8); Eosinophils # 0.3 10*3/uL (0.0-0.87); Eosinophils % 7.3 % (0.00-10.9); Hematocrit 34.9 VOL% (42.0-52.0); Hemoglobin 11.6 GM/DL (14.0-18.0); Immature Granulocytes % 0.3 %; Immature Granulocytes Absolute 0.01 #; Lymphocytes # 0.7 10*3/uL (1.4-4.0); Lymphocytes % 18.5 % (21.2-54.2); Mean Corpuscular HGB Conc 33.2 GM/DL (32-36); Mean Corpuscular Hemoglobin 30 PG (27-34); Mean Corpuscular Volume 91.6 FL (87-102); Mean Platelet Volume 9.6 FL (9.6-12.0); Monocytes # 0.4 10*3/uL (0.11-0.8); Monocytes % 9.8 % (1.7-12.7); Neutrophils # 2.5 10*3/uL (1.4-7.4); Neutrophils % 62.8 % (38.7-73.9); Platelet Count 131 T/CUMM (130-400); Red Blood Count 3.81 MC/CUMM (3.8-5.5); Red Cell Distribution Width 13.6 % (9.3-17.3)
[2017-08-17 16:38] LABS: PT Patient Result 10.2 SECS
[2017-08-17 16:54] LABS: Albumin 3.7 G/DL (3.4-5.0); Bilirubin,Total 0.4 MG/DL (0.2-1.0); Calcium 8.7 MG/DL (8.5-10.1); Magnesium 2.4 MG/DL (1.8-2.4); Osmolality,Calculated 286.4 MOS/KG (273-304); Potassium 3.9 MMOL/L (3.5-5.1); Total Protein 7.2 G/DL (6.4-8.3)
[2017-08-17 17:16] LABS: Apearance,Urine CLEAR (Clear); Bilirubin,Urine Negative (Negative); Blood, Urine Negative (Negative); Glucose,Urine (UA) Negative (Negative); Ketones,Urine Negative (Negative); Nitrite,Urine Negative (Negative); Protein,Urine Negative; Squamous Epithelial Cell,Urine Occasional /HPF (0-10); Urine Color Straw (Yellow); Urine Specific Gravity 1.009 (1.001-1.035); Urine Urobilinogen < 2.0 EU/DL (0.2-1.0); WBC,Urine <1 /HPF (0-6)
[2017-08-17] MEDS ORDERED: DOCUSATE SODIUM 100 MG CAPSULE PO PRN (18:26)
[2017-08-17] MEDS ORDERED: diphenhydrAMINE CAP 50 MG CAPSULE PO PRN (18:26)
[2017-08-17] MEDS ORDERED: NITROGLYCERIN SL 0.4 MG TABLET SL PRN (18:26)
[2017-08-17] MEDS ORDERED: ALBUTEROL 2.5 MG/3 ML NEB RESP TX PRN (18:26)
[2017-08-17] MEDS ORDERED: GLUCAGON 1 MG VIAL IM PRN (18:34)
[2017-08-17] MEDS ORDERED: DEXTROSE 50% 25 GM/50 ML VIAL IV PRN (18:34)
[2017-08-17] MEDS: SODIUM CHLORIDE 0.9% 1,000 ML IV SCH (19:00)
[2017-08-17 19:15] LABS: Hematocrit 31.1 VOL% (42.0-52.0); Hemoglobin 10.6 GM/DL (14.0-18.0)
[2017-08-17] MEDS ORDERED: CILOSTAZOL 100 MG TABLET PO SCH (21:00)
[2017-08-17] MEDS: ALPRAZolam 0.5 MG TABLET PO SCH (22:11)
[2017-08-17] MEDS: TEMAZEPAM 15 MG CAPSULE PO SCH (22:12)
[2017-08-17] MEDS: FUROSEMIDE 40 MG TABLET PO SCH (22:12)
[2017-08-17] MEDS: CARVEDILOL 3.125 MG TABLET PO SCH (22:12)
[2017-08-17] MEDS: THEOPHYLLINE ER 300 MG TABLET PO SCH (22:12)
[2017-08-17] MEDS: ROSUVASTATIN 20 MG TABLET PO SCH (22:12)
[2017-08-17] MEDS: PANTOPRAZOLE 40 MG VIAL IV SCH (22:13)
[2017-08-17] MEDS: INSULIN GLARGINE 100 UNIT/ML SUBCUT SCH (22:16)
[2017-08-17] MEDS: INSULIN LISPRO 100 UNIT/ML SUBCUT SCH (22:17)
[2017-08-17] MEDS ORDERED: ALBUTEROL/IPRATROPIUM 3 ML NEB RESP TX PRN (22:45)
[2017-08-18] MEDS: ALBUTEROL/IPRATROPIUM 3 ML NEB RESP TX SCH ×4 (00:32→19:17)
[2017-08-18 01:51] LABS: Hematocrit 28.3 VOL% (42.0-52.0); Hemoglobin 9.4 GM/DL (14.0-18.0)
[2017-08-18 05:18] LABS: Hematocrit 28.9 VOL% (42.0-52.0); Hemoglobin 9.8 GM/DL (14.0-18.0)
[2017-08-18] MEDS: INSULIN LISPRO 100 UNIT/ML SUBCUT SCH ×4 (08:10→21:01)
[2017-08-18] MEDS: ALPRAZolam 0.5 MG TABLET PO SCH ×3 (08:47→21:12)
[2017-08-18] MEDS: PANTOPRAZOLE 40 MG VIAL IV SCH ×2 (08:47→21:11)
[2017-08-18] MEDS: SODIUM CHLORIDE 0.9% 1,000 ML IV SCH (08:47)
[2017-08-18] MEDS: FUROSEMIDE 40 MG TABLET PO SCH (08:47)
[2017-08-18] MEDS: amLODIPine 10 MG TABLET PO SCH (08:48)
[2017-08-18] MEDS: THEOPHYLLINE ER 300 MG TABLET PO SCH ×2 (08:48→21:12)
[2017-08-18] MEDS: POTASSIUM CHLORIDE 20 MEQ TABLET PO SCH (08:48)
[2017-08-18] MEDS: CARVEDILOL 3.125 MG TABLET PO SCH ×2 (08:48→16:23)
[2017-08-18] MEDS: hydrALAZINE 25 MG TABLET PO SCH (08:48)
[2017-08-18] MEDS ORDERED: ASPIRIN CHEW 81 MG TABLET PO SCH (09:00)
[2017-08-18] MEDS ORDERED: VARENICLINE PO SCH (09:00)
[2017-08-18 12:30] LABS: Hematocrit 32.3 VOL% (42.0-52.0); Hemoglobin 11.1 GM/DL (14.0-18.0)
[2017-08-18] MEDS: INSULIN GLARGINE 100 UNIT/ML SUBCUT SCH (21:01)
[2017-08-18] MEDS: TEMAZEPAM 15 MG CAPSULE PO SCH (21:11)
[2017-08-18] MEDS: ROSUVASTATIN 20 MG TABLET PO SCH (21:11)
[2017-08-19] MEDS: ALBUTEROL/IPRATROPIUM 3 ML NEB RESP TX SCH ×4 (00:21→20:12)
[2017-08-19 08:54] LABS: Hematocrit 30.5 VOL% (42.0-52.0); Hemoglobin 10.1 GM/DL (14.0-18.0)
[2017-08-19] MEDS ORDERED: FUROSEMIDE 40 MG TABLET PO SCH (09:00)
[2017-08-19] MEDS: THEOPHYLLINE ER 300 MG TABLET PO SCH ×2 (09:01→21:38)
[2017-08-19] MEDS: PANTOPRAZOLE 40 MG VIAL IV SCH ×2 (09:01→21:38)
[2017-08-19] MEDS: hydrALAZINE 25 MG TABLET PO SCH (09:01)
[2017-08-19] MEDS: CARVEDILOL 3.125 MG TABLET PO SCH ×2 (09:01→17:22)
[2017-08-19] MEDS: POTASSIUM CHLORIDE 20 MEQ TABLET PO SCH (09:01)
[2017-08-19] MEDS: amLODIPine 10 MG TABLET PO SCH (09:01)
[2017-08-19] MEDS: INSULIN LISPRO 100 UNIT/ML SUBCUT SCH ×4 (09:01→21:38)
[2017-08-19] MEDS: ALPRAZolam 0.5 MG TABLET PO SCH (09:01)
[2017-08-19] MEDS ORDERED: ALPRAZolam 0.5 MG TABLET PO PRN (12:17)
[2017-08-19 15:13] LABS: Hematocrit 33.2 VOL% (42.0-52.0); Hemoglobin 10.8 GM/DL (14.0-18.0)
[2017-08-19] MEDS: ROSUVASTATIN 20 MG TABLET PO SCH (21:38)
[2017-08-19] MEDS: TEMAZEPAM 15 MG CAPSULE PO SCH (21:38)
[2017-08-19] MEDS: INSULIN GLARGINE 100 UNIT/ML SUBCUT SCH (21:39)
[2017-08-19 22:13] LABS: Hematocrit 30.6 VOL% (42.0-52.0); Hemoglobin 9.9 GM/DL (14.0-18.0)
[2017-08-20] MEDS: ALBUTEROL/IPRATROPIUM 3 ML NEB RESP TX SCH ×4 (00:03→20:19)
[2017-08-20 06:41] LABS: Calcium 7.9 MG/DL (8.5-10.1); Osmolality,Calculated 279.4 MOS/KG (273-304); Potassium 4.4 MMOL/L (3.5-5.1)
[2017-08-20] MEDS: amLODIPine 10 MG TABLET PO SCH (09:40)
[2017-08-20] MEDS: THEOPHYLLINE ER 300 MG TABLET PO SCH ×2 (09:40→21:36)
[2017-08-20] MEDS: PANTOPRAZOLE 40 MG VIAL IV SCH ×2 (09:41→21:37)
[2017-08-20] MEDS: POTASSIUM CHLORIDE 20 MEQ TABLET PO SCH (09:41)
[2017-08-20] MEDS: hydrALAZINE 25 MG TABLET PO SCH (09:41)
[2017-08-20] MEDS: INSULIN LISPRO 100 UNIT/ML SUBCUT SCH ×4 (09:42→21:37)
[2017-08-20] MEDS: CARVEDILOL 3.125 MG TABLET PO SCH ×2 (09:42→18:10)
[2017-08-20] MEDS ORDERED: DEXTROSE 50% 25 GM/50 ML VIAL IV PRN (12:28)
[2017-08-20] MEDS: TEMAZEPAM 15 MG CAPSULE PO SCH (21:37)
[2017-08-20] MEDS: ROSUVASTATIN 20 MG TABLET PO SCH (21:37)
[2017-08-20] MEDS: INSULIN GLARGINE 100 UNIT/ML SUBCUT SCH (21:38)
[2017-08-21] MEDS: ALBUTEROL/IPRATROPIUM 3 ML NEB RESP TX SCH ×2 (02:04→07:21)
[2017-08-21 07:23] LABS: Basophils % 0.5 % (0.0-0.8); Eosinophils # 0.2 10*3/uL (0.0-0.87); Eosinophils % 3.9 % (0.00-10.9); Hematocrit 30.2 VOL% (42.0-52.0); Hemoglobin 10.1 GM/DL (14.0-18.0); Immature Granulocytes % 0.5 %; Immature Granulocytes Absolute 0.03 #; Lymphocytes # 0.4 10*3/uL (1.4-4.0); Lymphocytes % 7.7 % (21.2-54.2); Mean Corpuscular HGB Conc 33.4 GM/DL (32-36); Mean Corpuscular Hemoglobin 31 PG (27-34); Mean Corpuscular Volume 92.1 FL (87-102); Mean Platelet Volume 10.7 FL (9.6-12.0); Monocytes # 0.5 10*3/uL (0.11-0.8); Monocytes % 8.2 % (1.7-12.7); Neutrophils # 4.4 10*3/uL (1.4-7.4); Neutrophils % 79.2 % (38.7-73.9); Platelet Count 124 T/CUMM (130-400); Red Blood Count 3.28 MC/CUMM (3.8-5.5); Red Cell Distribution Width 13.4 % (9.3-17.3); White Blood Count 5.6 T/CUMM (4-12)
[2017-08-21 07:48] LABS: Calcium 8.4 MG/DL (8.5-10.1); Osmolality,Calculated 277.5 MOS/KG (273-304); Potassium 3.7 MMOL/L (3.5-5.1)
[2017-08-21] MEDS: PANTOPRAZOLE 40 MG VIAL IV SCH (09:42)
[2017-08-21] MEDS: hydrALAZINE 25 MG TABLET PO SCH (09:42)
[2017-08-21] MEDS: POTASSIUM CHLORIDE 20 MEQ TABLET PO SCH (09:42)
[2017-08-21] MEDS: THEOPHYLLINE ER 300 MG TABLET PO SCH (09:42)
[2017-08-21] MEDS: CARVEDILOL 3.125 MG TABLET PO SCH (09:42)
[2017-08-21] MEDS: INSULIN LISPRO 100 UNIT/ML SUBCUT SCH (09:43)
[2017-08-21] MEDS: amLODIPine 10 MG TABLET PO SCH (09:44)
[2017-08-21 10:04] VITALS: BP 140/59
== END 2017-08-21 12:50 | disposition home health service (06) | DRG 378 ==
LOC: N.ED 12:44 → N.EDINP 17:17 → SUATTDRO 17:17 → N.5E 18:08
PROVIDERS: ADMIT Internal Medicine; ATTEND Internal Medicine

== ENCOUNTER 2017-10-28 05:29 | Inpatient (IN) ==
[2017-10-28] MEDS ORDERED: PANTOPRAZOLE 40 MG VIAL IV STA (06:04)
[2017-10-28] MEDS ORDERED: PANTOPRAZOLE 40 MG VIAL IV ONE (06:08)
[2017-10-28 06:19] LABS: Basophils # 0.1 10*3/uL (0.0-0.2); Basophils % 0.9 % (0.0-0.8); Eosinophils # 0.3 10*3/uL (0.0-0.87); Eosinophils % 6.2 % (0.00-10.9); Hematocrit 30.3 VOL% (42.0-52.0); Hemoglobin 9.7 GM/DL (14.0-18.0); Immature Granulocytes % 0.4 %; Immature Granulocytes Absolute 0.02 #; Lymphocytes # 0.7 10*3/uL (1.4-4.0); Lymphocytes % 12.5 % (21.2-54.2); Mean Corpuscular Hemoglobin 29 PG (27-34); Mean Corpuscular Volume 90.4 FL (87-102); Mean Platelet Volume 10.5 FL (9.6-12.0); Monocytes # 0.3 10*3/uL (0.11-0.8); Monocytes % 6.2 % (1.7-12.7); Neutrophils # 3.9 10*3/uL (1.4-7.4); Neutrophils % 73.8 % (38.7-73.9); Platelet Count 127 T/CUMM (130-400); Red Blood Count 3.35 MC/CUMM (3.8-5.5); Red Cell Distribution Width 13.9 % (9.3-17.3); White Blood Count 5.3 T/CUMM (4-12)
[2017-10-28 06:40] LABS: Albumin 3.2 G/DL (3.4-5.0); Bilirubin,Total 0.4 MG/DL (0.2-1.0); Osmolality,Calculated 296.1 MOS/KG (273-304); Potassium 4.2 MMOL/L (3.5-5.1); Total Protein 5.9 G/DL (6.4-8.3)
[2017-10-28 06:41] LABS: Troponin I Only 0.105 NG/ML (0.00-0.045)
[2017-10-28] MEDS ORDERED: ONDANSETRON 4 MG/2 ML VIAL ONE (08:00)
[2017-10-28] MEDS ORDERED: ONDANSETRON 4 MG/2 ML VIAL IV STA (08:07)
[2017-10-28] MEDS ORDERED: GLUCAGON 1 MG VIAL IM PRN (09:13)
[2017-10-28] MEDS ORDERED: DEXTROSE 50% 25 GM/50 ML VIAL IV PRN (09:13)
[2017-10-28 09:34] LABS: Hematocrit 25.7 VOL% (42.0-52.0); Hemoglobin 8.4 GM/DL (14.0-18.0)
[2017-10-28] MEDS: PANTOPRAZOLE 40 MG VIAL IV SCH (09:42)
[2017-10-28] MEDS: SODIUM CHLORIDE 0.9% 1,000 ML IV SCH (09:43)
[2017-10-28] MEDS ORDERED: ACETAMINOPHEN 325 MG TABLET PO PRN (09:44)
[2017-10-28] MEDS ORDERED: ONDANSETRON 4 MG/2 ML VIAL IV PRN (09:44)
[2017-10-28] MEDS ORDERED: SODIUM CHLORIDE 0.9% 1,000 ML IV PRN (09:44)
[2017-10-28] MEDS ORDERED: MORPHINE 4 MG/1 ML VIAL IV PRN (09:44)
[2017-10-28] MEDS ORDERED: NITROGLYCERIN SL 0.4 MG TABLET SL PRN (09:45)
[2017-10-28] MEDS ORDERED: LEVOFLOXACIN INJ 500 MG in PREMIX 1 EACH IV ONE (10:00)
[2017-10-28] MEDS ORDERED: CLOPIDOGREL 75 MG TABLET PO SCH (10:00)
[2017-10-28] MEDS: ALBUTEROL/IPRATROPIUM 3 ML NEB RESP TX SCH ×2 (12:42→19:18)
[2017-10-28] MEDS: INSULIN LISPRO 100 UNIT/ML SUBCUT SCH ×3 (13:01→21:34)
[2017-10-28] MEDS: POLYETHYLENE GLYCOL POWDER 17 GM PACK PO SCH ×2 (16:02→21:31)
[2017-10-28] MEDS: ALPRAZolam 0.5 MG TABLET PO SCH ×2 (16:02→21:30)
[2017-10-28 20:39] LABS: Hematocrit 24.4 VOL% (42.0-52.0); Hemoglobin 8.1 GM/DL (14.0-18.0)
[2017-10-28] MEDS: ROSUVASTATIN 20 MG TABLET PO SCH (21:30)
[2017-10-28] MEDS: TEMAZEPAM 15 MG CAPSULE PO SCH (21:30)
[2017-10-28] MEDS: THEOPHYLLINE ER 300 MG TABLET PO SCH (21:30)
[2017-10-29] MEDS: ALBUTEROL/IPRATROPIUM 3 ML NEB RESP TX SCH ×4 (00:14→19:42)
[2017-10-29 03:16] LABS: Basophils % 0.7 % (0.0-0.8); Eosinophils # 0.2 10*3/uL (0.0-0.87); Eosinophils % 5.6 % (0.00-10.9); Hematocrit 22.7 VOL% (42.0-52.0); Hemoglobin 7.7 GM/DL (14.0-18.0); Immature Granulocytes % 0.5 %; Immature Granulocytes Absolute 0.02 #; Lymphocytes % 23.3 % (21.2-54.2); Mean Corpuscular HGB Conc 33.9 GM/DL (32-36); Mean Corpuscular Hemoglobin 29 PG (27-34); Mean Platelet Volume 10.3 FL (9.6-12.0); Monocytes # 0.4 10*3/uL (0.11-0.8); Monocytes % 8.7 % (1.7-12.7); Neutrophils # 2.5 10*3/uL (1.4-7.4); Neutrophils % 61.2 % (38.7-73.9); Platelet Count 93 T/CUMM (130-400); Red Blood Count 2.64 MC/CUMM (3.8-5.5); Red Cell Distribution Width 14.5 % (9.3-17.3); White Blood Count 4.1 T/CUMM (4-12)
[2017-10-29 03:57] LABS: Calcium 7.2 MG/DL (8.5-10.1); Potassium 3.9 MMOL/L (3.5-5.1)
[2017-10-29 05:05] LABS: Band Neutrophils 1 % (0-10); Eosinophils 7 % (0-10); Giant Platelets Few; Hypochromasia 1+; Lymphocytes 18 % (20-55); Microcytosis Slight; Ovalocytes Slight; Platelet Estimate Decreased; Segmented Neutrophils 69 % (50-85); Total Cells Counted 100
[2017-10-29] MEDS: SODIUM CHLORIDE 0.9% 1,000 ML IV SCH ×3 (06:15→10:43)
[2017-10-29] MEDS ORDERED: ALBUTEROL 2.5 MG/3 ML NEB RESP TX PRN (08:30)
[2017-10-29] MEDS: INSULIN LISPRO 100 UNIT/ML SUBCUT SCH ×4 (08:44→22:05)
[2017-10-29] MEDS: ASPIRIN CHEW 81 MG TABLET PO SCH (08:45)
[2017-10-29] MEDS: PANTOPRAZOLE 40 MG TABLET PO SCH ×2 (08:46→21:56)
[2017-10-29] MEDS ORDERED: FUROSEMIDE 40 MG TABLET PO SCH (09:00)
[2017-10-29] MEDS: THEOPHYLLINE ER 300 MG TABLET PO SCH ×2 (10:09→21:56)
[2017-10-29] MEDS: POTASSIUM CHLORIDE 20 MEQ TABLET PO SCH (10:09)
[2017-10-29] MEDS: POLYETHYLENE GLYCOL POWDER 17 GM PACK PO SCH ×3 (10:09→21:56)
[2017-10-29] MEDS: ALPRAZolam 0.5 MG TABLET PO SCH ×3 (10:09→21:57)
[2017-10-29] MEDS: LEVOFLOXACIN INJ 250 MG in PREMIX 1 EACH IV SCH (10:10)
[2017-10-29] MEDS: PANTOPRAZOLE 40 MG VIAL IV SCH (10:10)
[2017-10-29] MEDS: ROSUVASTATIN 20 MG TABLET PO SCH (21:56)
[2017-10-29] MEDS: CARVEDILOL 3.125 MG TABLET PO SCH (21:56)
[2017-10-29] MEDS: TEMAZEPAM 15 MG CAPSULE PO SCH (21:57)
[2017-10-30] MEDS: ALBUTEROL/IPRATROPIUM 3 ML NEB RESP TX SCH ×4 (01:34→19:02)
[2017-10-30] MEDS: SODIUM CHLORIDE 0.9% 1,000 ML IV SCH ×2 (04:40→16:06)
[2017-10-30 04:59] LABS: Basophils % 1.1 % (0.0-0.8); Eosinophils # 0.3 10*3/uL (0.0-0.87); Eosinophils % 7.9 % (0.00-10.9); Hematocrit 28.7 VOL% (42.0-52.0); Hemoglobin 9.4 GM/DL (14.0-18.0); Immature Granulocytes % 0.8 %; Immature Granulocytes Absolute 0.03 #; Lymphocytes # 0.7 10*3/uL (1.4-4.0); Lymphocytes % 17.7 % (21.2-54.2); Mean Corpuscular HGB Conc 32.8 GM/DL (32-36); Mean Corpuscular Hemoglobin 30 PG (27-34); Mean Platelet Volume 10.2 FL (9.6-12.0); Monocytes # 0.4 10*3/uL (0.11-0.8); Monocytes % 10.8 % (1.7-12.7); Neutrophils # 2.3 10*3/uL (1.4-7.4); Neutrophils % 61.7 % (38.7-73.9); Platelet Count 89 T/CUMM (130-400); Red Blood Count 3.19 MC/CUMM (3.8-5.5); Red Cell Distribution Width 14.6 % (9.3-17.3); White Blood Count 3.8 T/CUMM (4-12)
[2017-10-30 05:16] LABS: Giant Platelets Few; Hypochromasia 1+; Microcytosis Slight; Ovalocytes Slight; Platelet Estimate Decreased
[2017-10-30 05:25] LABS: Calcium 7.8 MG/DL (8.5-10.1); Osmolality,Calculated 287.1 MOS/KG (273-304)
[2017-10-30 05:33] LABS: Risk Ratio 3.24; VLDL CHOLESTEROL 37.6 MG/DL
[2017-10-30] MEDS: INSULIN LISPRO 100 UNIT/ML SUBCUT SCH ×4 (08:33→22:15)
[2017-10-30] MEDS: PANTOPRAZOLE 40 MG TABLET PO SCH ×2 (09:25→22:15)
[2017-10-30] MEDS: ASPIRIN CHEW 81 MG TABLET PO SCH (09:26)
[2017-10-30] MEDS: POLYETHYLENE GLYCOL POWDER 17 GM PACK PO SCH ×3 (09:26→22:14)
[2017-10-30] MEDS: THEOPHYLLINE ER 300 MG TABLET PO SCH ×2 (09:26→22:14)
[2017-10-30] MEDS: POTASSIUM CHLORIDE 20 MEQ TABLET PO SCH (09:26)
[2017-10-30] MEDS: CARVEDILOL 3.125 MG TABLET PO SCH ×2 (09:26→22:15)
[2017-10-30] MEDS: PANTOPRAZOLE 40 MG VIAL IV SCH (09:26)
[2017-10-30] MEDS: ALPRAZolam 0.5 MG TABLET PO SCH ×3 (09:26→22:15)
[2017-10-30] MEDS: LEVOFLOXACIN INJ 250 MG in PREMIX 1 EACH IV SCH (09:33)
[2017-10-30] MEDS: CLOPIDOGREL 75 MG TABLET PO SCH (10:18)
[2017-10-30] MEDS ORDERED: DEXTROSE 50% 25 GM/50 ML VIAL IV PRN (13:40)
[2017-10-30] MEDS ORDERED: GLUCAGON 1 MG VIAL IM PRN (13:40)
[2017-10-30] MEDS: TEMAZEPAM 15 MG CAPSULE PO SCH (22:14)
[2017-10-30] MEDS: ROSUVASTATIN 20 MG TABLET PO SCH (22:15)
[2017-10-31] MEDS: ALBUTEROL/IPRATROPIUM 3 ML NEB RESP TX SCH ×3 (00:32→19:53)
[2017-10-31 05:23] LABS: Basophils % 0.7 % (0.0-0.8); Eosinophils # 0.2 10*3/uL (0.0-0.87); Eosinophils % 5.8 % (0.00-10.9); Hematocrit 27.9 VOL% (42.0-52.0); Hemoglobin 9.4 GM/DL (14.0-18.0); Immature Granulocytes % 0.2 %; Immature Granulocytes Absolute 0.01 #; Lymphocytes # 0.6 10*3/uL (1.4-4.0); Lymphocytes % 13.7 % (21.2-54.2); Mean Corpuscular HGB Conc 33.7 GM/DL (32-36); Mean Corpuscular Hemoglobin 30 PG (27-34); Mean Corpuscular Volume 88.6 FL (87-102); Mean Platelet Volume 10.4 FL (9.6-12.0); Monocytes # 0.4 10*3/uL (0.11-0.8); Monocytes % 9.9 % (1.7-12.7); Neutrophils # 2.9 10*3/uL (1.4-7.4); Neutrophils % 69.7 % (38.7-73.9); Platelet Count 97 T/CUMM (130-400); Red Blood Count 3.15 MC/CUMM (3.8-5.5); Red Cell Distribution Width 14.9 % (9.3-17.3); White Blood Count 4.2 T/CUMM (4-12)
[2017-10-31 05:54] LABS: Hypochromasia 1+; Microcytosis 1+; Ovalocytes Slight; Platelet Estimate Decreased; Tear Drop Cells Slight
[2017-10-31 06:23] LABS: Calcium 7.6 MG/DL (8.5-10.1); Osmolality,Calculated 284.3 MOS/KG (273-304); Potassium 4.5 MMOL/L (3.5-5.1)
[2017-10-31] MEDS: INSULIN LISPRO 100 UNIT/ML SUBCUT SCH ×4 (08:10→21:19)
[2017-10-31] MEDS: THEOPHYLLINE ER 300 MG TABLET PO SCH ×2 (09:10→21:18)
[2017-10-31] MEDS: POTASSIUM CHLORIDE 20 MEQ TABLET PO SCH (09:11)
[2017-10-31] MEDS: POLYETHYLENE GLYCOL POWDER 17 GM PACK PO SCH ×3 (09:11→21:18)
[2017-10-31] MEDS: CARVEDILOL 3.125 MG TABLET PO SCH ×2 (09:12→21:18)
[2017-10-31] MEDS: CLOPIDOGREL 75 MG TABLET PO SCH (09:12)
[2017-10-31] MEDS: ASPIRIN CHEW 81 MG TABLET PO SCH (09:12)
[2017-10-31] MEDS: ALPRAZolam 0.5 MG TABLET PO SCH ×3 (09:13→21:18)
[2017-10-31] MEDS: PANTOPRAZOLE 40 MG VIAL IV SCH (09:13)
[2017-10-31] MEDS: PANTOPRAZOLE 40 MG TABLET PO SCH ×2 (09:17→21:18)
[2017-10-31] MEDS: LEVOFLOXACIN INJ 250 MG in PREMIX 1 EACH IV SCH (09:34)
[2017-10-31 09:40] LABS: Band Neutrophils 1 % (0-10); Eosinophils 1 % (0-10); Lymphocytes 14 % (20-55); Segmented Neutrophils 77 % (50-85); Total Cells Counted 100
[2017-10-31] MEDS ORDERED: OMEGA 3 ACID ETHYL ESTERS 1 GM CAPSULE PO SCH (21:00)
[2017-10-31] MEDS: ROSUVASTATIN 20 MG TABLET PO SCH (21:18)
[2017-10-31] MEDS: TEMAZEPAM 15 MG CAPSULE PO SCH (21:19)
[2017-11-01] MEDS: ALBUTEROL/IPRATROPIUM 3 ML NEB RESP TX SCH ×4 (00:17→13:55)
[2017-11-01 05:39] LABS: Basophils % 0.6 % (0.0-0.8); Eosinophils # 0.2 10*3/uL (0.0-0.87); Eosinophils % 4.5 % (0.00-10.9); Hematocrit 28.8 VOL% (42.0-52.0); Hemoglobin 9.7 GM/DL (14.0-18.0); Immature Granulocytes % 0.6 %; Immature Granulocytes Absolute 0.03 #; Lymphocytes # 0.5 10*3/uL (1.4-4.0); Lymphocytes % 11.7 % (21.2-54.2); Mean Corpuscular HGB Conc 33.7 GM/DL (32-36); Mean Corpuscular Hemoglobin 30 PG (27-34); Mean Corpuscular Volume 88.9 FL (87-102); Monocytes # 0.5 10*3/uL (0.11-0.8); Monocytes % 10.4 % (1.7-12.7); Neutrophils # 3.3 10*3/uL (1.4-7.4); Neutrophils % 72.2 % (38.7-73.9); Platelet Count 112 T/CUMM (130-400); Red Blood Count 3.24 MC/CUMM (3.8-5.5); Red Cell Distribution Width 14.8 % (9.3-17.3); White Blood Count 4.6 T/CUMM (4-12)
[2017-11-01 06:06] LABS: Calcium 7.9 MG/DL (8.5-10.1); Osmolality,Calculated 283.4 MOS/KG (273-304); Potassium 4.6 MMOL/L (3.5-5.1)
[2017-11-01] MEDS: INSULIN LISPRO 100 UNIT/ML SUBCUT SCH ×3 (07:44→16:37)
[2017-11-01] MEDS ORDERED: ETOMIDATE 20 MG/10 ML VIAL IV ONE (10:02)
[2017-11-01] MEDS ORDERED: PROPOFOL 200 MG/20 ML VIAL IV ONE (10:02)
[2017-11-01] MEDS ORDERED: ALBUTEROL/IPRATROPIUM 3 ML NEB RESP TX STA (10:28)
[2017-11-01] MEDS: LEVOFLOXACIN INJ 250 MG in PREMIX 1 EACH IV SCH (14:14)
[2017-11-01] MEDS: POLYETHYLENE GLYCOL POWDER 17 GM PACK PO SCH ×2 (14:15→14:34)
[2017-11-01] MEDS: ALPRAZolam 0.5 MG TABLET PO SCH ×2 (14:15→16:16)
[2017-11-01] MEDS: PANTOPRAZOLE 40 MG VIAL IV SCH (14:15)
[2017-11-01] MEDS: THEOPHYLLINE ER 300 MG TABLET PO SCH (14:22)
[2017-11-01] MEDS: POTASSIUM CHLORIDE 20 MEQ TABLET PO SCH (14:22)
[2017-11-01] MEDS: PANTOPRAZOLE 40 MG TABLET PO SCH (14:22)
[2017-11-01] MEDS: ASPIRIN CHEW 81 MG TABLET PO SCH (14:22)
[2017-11-01] MEDS: CLOPIDOGREL 75 MG TABLET PO SCH (14:23)
[2017-11-01] MEDS: CARVEDILOL 3.125 MG TABLET PO SCH (14:23)
[2017-11-01 18:14] VITALS: BP 176/79
== END 2017-11-01 17:40 | disposition home health service (06) | DRG 813 ==
LOC: EDBD → EDUNIT# → N.ED 05:29 → SUATTDRO 08:22 → N.EDINP 08:22 → N.TELES 09:09
PROVIDERS: ADMIT Internal Medicine; ATTEND Internal Medicine

== ENCOUNTER 2017-11-04 22:32 | Inpatient (IN) ==
[2017-11-04] MEDS ORDERED: SODIUM CHLORIDE 0.9% 500 ML IV STA (23:11)
[2017-11-04] MEDS ORDERED: PANTOPRAZOLE 40 MG VIAL IV STA (23:11)
[2017-11-04] MEDS ORDERED: PANTOPRAZOLE 40 MG VIAL IV ONE (23:15)
[2017-11-04 23:38] LABS: Basophils % 0.6 % (0.0-0.8); Eosinophils # 0.2 10*3/uL (0.0-0.87); Eosinophils % 3.2 % (0.00-10.9); Hematocrit 29.3 VOL% (42.0-52.0); Hemoglobin 9.5 GM/DL (14.0-18.0); Immature Granulocytes % 0.6 %; Immature Granulocytes Absolute 0.04 #; Lymphocytes # 0.6 10*3/uL (1.4-4.0); Lymphocytes % 8.8 % (21.2-54.2); Mean Corpuscular HGB Conc 32.4 GM/DL (32-36); Mean Corpuscular Hemoglobin 29 PG (27-34); Mean Corpuscular Volume 90.7 FL (87-102); Mean Platelet Volume 9.9 FL (9.6-12.0); Monocytes # 0.3 10*3/uL (0.11-0.8); Monocytes % 5.1 % (1.7-12.7); Neutrophils # 5.1 10*3/uL (1.4-7.4); Neutrophils % 81.7 % (38.7-73.9); Platelet Count 167 T/CUMM (130-400); Red Blood Count 3.23 MC/CUMM (3.8-5.5); Red Cell Distribution Width 15.2 % (9.3-17.3); White Blood Count 6.2 T/CUMM (4-12)
[2017-11-04 23:48] LABS: Partial Thromboplastin Time 25.3 SECS (0-40)
[2017-11-04 23:57] LABS: Albumin 3.4 G/DL (3.4-5.0); Bilirubin,Total 0.4 MG/DL (0.2-1.0); Calcium 8.4 MG/DL (8.5-10.1); Total Protein 6.4 G/DL (6.4-8.3)
[2017-11-04 23:58] LABS: Osmolality,Calculated 290.4 MOS/KG (273-304); Potassium 3.9 MMOL/L (3.5-5.1)
[2017-11-05] MEDS ORDERED: ONDANSETRON 4 MG/2 ML VIAL IV PRN (01:15)
[2017-11-05] MEDS ORDERED: ACETAMINOPHEN 325 MG TABLET PO PRN (01:15)
[2017-11-05] MEDS ORDERED: GLUCAGON 1 MG VIAL IM PRN (01:42)
[2017-11-05] MEDS ORDERED: DEXTROSE 50% 25 GM/50 ML VIAL IV PRN (01:42)
[2017-11-05 05:48] LABS: Basophils % 0.7 % (0.0-0.8); Eosinophils # 0.1 10*3/uL (0.0-0.87); Eosinophils % 2.3 % (0.00-10.9); Hematocrit 26.5 VOL% (42.0-52.0); Hemoglobin 8.6 GM/DL (14.0-18.0); Immature Granulocytes % 0.7 %; Immature Granulocytes Absolute 0.03 #; Lymphocytes # 0.6 10*3/uL (1.4-4.0); Lymphocytes % 12.9 % (21.2-54.2); Mean Corpuscular HGB Conc 32.5 GM/DL (32-36); Mean Corpuscular Hemoglobin 29 PG (27-34); Mean Corpuscular Volume 90.1 FL (87-102); Mean Platelet Volume 9.5 FL (9.6-12.0); Monocytes # 0.3 10*3/uL (0.11-0.8); Monocytes % 6.8 % (1.7-12.7); Neutrophils # 3.4 10*3/uL (1.4-7.4); Neutrophils % 76.6 % (38.7-73.9); Platelet Count 135 T/CUMM (130-400); Red Blood Count 2.94 MC/CUMM (3.8-5.5); Red Cell Distribution Width 15.3 % (9.3-17.3); White Blood Count 4.4 T/CUMM (4-12)
[2017-11-05 06:00] LABS: PT Patient Result 10.9 SECS
[2017-11-05 06:17] LABS: Calcium 8.3 MG/DL (8.5-10.1); Potassium 4.3 MMOL/L (3.5-5.1)
[2017-11-05] MEDS: INSULIN LISPRO 100 UNIT/ML SUBCUT SCH ×4 (07:30→20:47)
[2017-11-05] MEDS ORDERED: POTASSIUM CHLORIDE 20 MEQ TABLET PO ONE (08:59)
[2017-11-05] MEDS ORDERED: CARVEDILOL 3.125 MG TABLET ONE (09:00)
[2017-11-05] MEDS ORDERED: ALPRAZolam 0.5 MG TABLET ONE (09:00)
[2017-11-05] MEDS ORDERED: LEVOFLOXACIN 500 MG PO SCH (09:00)
[2017-11-05] MEDS ORDERED: PANTOPRAZOLE 40 MG TABLET PO ONE (09:00)
[2017-11-05] MEDS ORDERED: FUROSEMIDE 40 MG TABLET ONE (09:06)
[2017-11-05] MEDS: FUROSEMIDE 40 MG TABLET PO SCH (09:10)
[2017-11-05] MEDS: POTASSIUM CHLORIDE 20 MEQ TABLET PO SCH (09:10)
[2017-11-05] MEDS: ALPRAZolam 0.5 MG TABLET PO SCH ×3 (09:10→21:46)
[2017-11-05] MEDS: CARVEDILOL 3.125 MG TABLET PO SCH ×3 (09:10→21:47)
[2017-11-05] MEDS: PANTOPRAZOLE 40 MG TABLET PO SCH ×2 (09:10→21:46)
[2017-11-05] MEDS: THEOPHYLLINE ER 300 MG TABLET PO SCH ×2 (10:02→21:45)
[2017-11-05] MEDS: FERROUS SULFATE 325 MG TABLET PO SCH ×3 (10:02→21:45)
[2017-11-05] MEDS ORDERED: SODIUM CHLORIDE 0.45% 1,000 ML IV SCH (10:30)
[2017-11-05 14:25] LABS: Hemoglobin 8.5 GM/DL (14.0-18.0)
[2017-11-05] MEDS: LEVOFLOXACIN 500 MG TABLET PO SCH (17:01)
[2017-11-05] MEDS: methylPREDNISolone SOD SUC 40 MG/1 ML VIAL IV SCH ×2 (17:02→21:45)
[2017-11-05] MEDS: NITROGLYCERIN SL 0.4 MG TABLET SL PRN ×2 (19:09→19:14)
[2017-11-05 19:27] LABS: Basophils % 0.5 % (0.0-0.8); Eosinophils # 0.1 10*3/uL (0.0-0.87); Eosinophils % 1.3 % (0.00-10.9); Hematocrit 26.8 VOL% (42.0-52.0); Hemoglobin 8.5 GM/DL (14.0-18.0); Immature Granulocytes % 0.6 %; Immature Granulocytes Absolute 0.04 #; Lymphocytes # 0.6 10*3/uL (1.4-4.0); Lymphocytes % 8.8 % (21.2-54.2); Mean Corpuscular HGB Conc 31.7 GM/DL (32-36); Mean Corpuscular Hemoglobin 29 PG (27-34); Mean Corpuscular Volume 90.8 FL (87-102); Mean Platelet Volume 9.9 FL (9.6-12.0); Monocytes # 0.2 10*3/uL (0.11-0.8); Monocytes % 3.6 % (1.7-12.7); Neutrophils # 5.5 10*3/uL (1.4-7.4); Neutrophils % 85.2 % (38.7-73.9); Platelet Count 152 T/CUMM (130-400); Red Blood Count 2.95 MC/CUMM (3.8-5.5); Red Cell Distribution Width 15.6 % (9.3-17.3); White Blood Count 6.4 T/CUMM (4-12)
[2017-11-05 19:51] LABS: Albumin 3.4 G/DL (3.4-5.0); Bilirubin,Total 0.6 MG/DL (0.2-1.0); Calcium 8.4 MG/DL (8.5-10.1); Osmolality,Calculated 287.3 MOS/KG (273-304); Potassium 4.4 MMOL/L (3.5-5.1); Total Protein 6.4 G/DL (6.4-8.3)
[2017-11-05] MEDS ORDERED: ASPIRIN 325 MG TABLET PO ONE (20:17)
[2017-11-05] MEDS ORDERED: NITROGLYCERIN 2% OINT 1 INCH/GM PACK TOP ONE (20:18)
[2017-11-05] MEDS: INSULIN GLARGINE 100 UNIT/ML SUBCUT SCH (20:48)
[2017-11-05] MEDS ORDERED: CARVEDILOL 3.125 MG TABLET PO SCH (21:02)
[2017-11-05] MEDS: ROSUVASTATIN 20 MG TABLET PO SCH (21:45)
[2017-11-05] MEDS: OMEGA 3 ACID ETHYL ESTERS 1 GM CAPSULE PO SCH (21:46)
[2017-11-05] MEDS: TEMAZEPAM 15 MG CAPSULE PO SCH (21:57)
[2017-11-06 05:37] LABS: Hematocrit 23.9 VOL% (42.0-52.0); Hemoglobin 7.7 GM/DL (14.0-18.0); Immature Granulocytes % 0.6 %; Immature Granulocytes Absolute 0.02 #; Lymphocytes # 0.4 10*3/uL (1.4-4.0); Mean Corpuscular HGB Conc 32.2 GM/DL (32-36); Mean Corpuscular Hemoglobin 29 PG (27-34); Mean Corpuscular Volume 89.5 FL (87-102); Mean Platelet Volume 9.6 FL (9.6-12.0); Monocytes # 0.1 10*3/uL (0.11-0.8); Monocytes % 1.6 % (1.7-12.7); Neutrophils # 2.8 10*3/uL (1.4-7.4); Neutrophils % 86.8 % (38.7-73.9); Platelet Count 140 T/CUMM (130-400); Red Blood Count 2.67 MC/CUMM (3.8-5.5); Red Cell Distribution Width 15.5 % (9.3-17.3); White Blood Count 3.2 T/CUMM (4-12)
[2017-11-06 06:02] LABS: Calcium 8.2 MG/DL (8.5-10.1); Osmolality,Calculated 289.5 MOS/KG (273-304); Potassium 4.9 MMOL/L (3.5-5.1)
[2017-11-06] MEDS ORDERED: SODIUM CHLORIDE 0.9% 1,000 ML IV PRN ×2 (06:17→16:44)
[2017-11-06] MEDS: POTASSIUM CHLORIDE 20 MEQ TABLET PO SCH (10:01)
[2017-11-06] MEDS: THEOPHYLLINE ER 300 MG TABLET PO SCH ×2 (10:01→21:28)
[2017-11-06] MEDS: ALPRAZolam 0.5 MG TABLET PO SCH ×3 (10:01→21:28)
[2017-11-06] MEDS: FERROUS SULFATE 325 MG TABLET PO SCH ×3 (10:01→21:28)
[2017-11-06] MEDS: FUROSEMIDE 40 MG TABLET PO SCH (10:01)
[2017-11-06] MEDS: PANTOPRAZOLE 40 MG TABLET PO SCH ×2 (10:02→21:29)
[2017-11-06] MEDS: INSULIN LISPRO 100 UNIT/ML SUBCUT SCH ×4 (10:02→21:00)
[2017-11-06] MEDS: CARVEDILOL 12.5 MG TABLET PO SCH ×2 (10:04→21:28)
[2017-11-06] MEDS: LEVOFLOXACIN 500 MG TABLET PO SCH (10:04)
[2017-11-06] MEDS: methylPREDNISolone SOD SUC 40 MG/1 ML VIAL IV SCH (10:04)
[2017-11-06] MEDS: ALBUTEROL/IPRATROPIUM 3 ML NEB RESP TX SCH (19:47)
[2017-11-06] MEDS: TEMAZEPAM 15 MG CAPSULE PO SCH (21:28)
[2017-11-06] MEDS: ROSUVASTATIN 20 MG TABLET PO SCH (21:28)
[2017-11-06] MEDS: OMEGA 3 ACID ETHYL ESTERS 1 GM CAPSULE PO SCH (21:29)
[2017-11-06] MEDS: INSULIN GLARGINE 100 UNIT/ML SUBCUT SCH (23:15)
[2017-11-07] MEDS: ALBUTEROL/IPRATROPIUM 3 ML NEB RESP TX SCH ×6 (00:13→19:46)
[2017-11-07 05:23] LABS: Basophils % 0.2 % (0.0-0.8); Eosinophils % 0.2 % (0.00-10.9); Hematocrit 24.9 VOL% (42.0-52.0); Hemoglobin 8.3 GM/DL (14.0-18.0); Immature Granulocytes % 0.4 %; Immature Granulocytes Absolute 0.02 #; Lymphocytes # 0.6 10*3/uL (1.4-4.0); Lymphocytes % 12.6 % (21.2-54.2); Mean Corpuscular HGB Conc 33.3 GM/DL (32-36); Mean Corpuscular Hemoglobin 30 PG (27-34); Mean Corpuscular Volume 89.9 FL (87-102); Mean Platelet Volume 10.1 FL (9.6-12.0); Monocytes # 0.4 10*3/uL (0.11-0.8); Monocytes % 9.1 % (1.7-12.7); Neutrophils # 3.8 10*3/uL (1.4-7.4); Neutrophils % 77.5 % (38.7-73.9); Platelet Count 103 T/CUMM (130-400); Red Blood Count 2.77 MC/CUMM (3.8-5.5); Red Cell Distribution Width 15.2 % (9.3-17.3); White Blood Count 4.9 T/CUMM (4-12)
[2017-11-07 05:48] LABS: Calcium 8.1 MG/DL (8.5-10.1); Osmolality,Calculated 285.4 MOS/KG (273-304); Potassium 4.2 MMOL/L (3.5-5.1)
[2017-11-07] MEDS: INSULIN LISPRO 100 UNIT/ML SUBCUT SCH ×4 (09:17→21:14)
[2017-11-07] MEDS: FUROSEMIDE 40 MG TABLET PO SCH (09:18)
[2017-11-07] MEDS: methylPREDNISolone SOD SUC 40 MG/1 ML VIAL IV SCH (09:18)
[2017-11-07] MEDS: PANTOPRAZOLE 40 MG TABLET PO SCH ×2 (09:18→21:09)
[2017-11-07] MEDS: POTASSIUM CHLORIDE 20 MEQ TABLET PO SCH (09:18)
[2017-11-07] MEDS: FERROUS SULFATE 325 MG TABLET PO SCH ×3 (09:18→21:10)
[2017-11-07] MEDS: THEOPHYLLINE ER 300 MG TABLET PO SCH ×2 (09:18→21:09)
[2017-11-07] MEDS: CARVEDILOL 12.5 MG TABLET PO SCH ×2 (09:18→21:09)
[2017-11-07] MEDS: LEVOFLOXACIN 500 MG TABLET PO SCH (09:19)
[2017-11-07] MEDS: ALPRAZolam 0.5 MG TABLET PO SCH ×3 (09:19→21:09)
[2017-11-07] MEDS: TEMAZEPAM 15 MG CAPSULE PO SCH (21:09)
[2017-11-07] MEDS: ROSUVASTATIN 20 MG TABLET PO SCH (21:10)
[2017-11-07] MEDS: OMEGA 3 ACID ETHYL ESTERS 1 GM CAPSULE PO SCH (21:10)
[2017-11-07] MEDS: INSULIN GLARGINE 100 UNIT/ML SUBCUT SCH (21:15)
[2017-11-08] MEDS: ALBUTEROL/IPRATROPIUM 3 ML NEB RESP TX SCH ×6 (01:23→19:23)
[2017-11-08 05:37] LABS: Basophils % 0.2 % (0.0-0.8); Eosinophils % 0.4 % (0.00-10.9); Hematocrit 27.3 VOL% (42.0-52.0); Hemoglobin 8.7 GM/DL (14.0-18.0); Immature Granulocytes % 0.4 %; Immature Granulocytes Absolute 0.02 #; Lymphocytes # 0.7 10*3/uL (1.4-4.0); Lymphocytes % 14.8 % (21.2-54.2); Mean Corpuscular HGB Conc 31.9 GM/DL (32-36); Mean Corpuscular Hemoglobin 29 PG (27-34); Mean Corpuscular Volume 91.9 FL (87-102); Monocytes # 0.4 10*3/uL (0.11-0.8); Monocytes % 9.1 % (1.7-12.7); Neutrophils # 3.7 10*3/uL (1.4-7.4); Neutrophils % 75.1 % (38.7-73.9); Platelet Count 103 T/CUMM (130-400); Red Blood Count 2.97 MC/CUMM (3.8-5.5); Red Cell Distribution Width 15.5 % (9.3-17.3); White Blood Count 4.9 T/CUMM (4-12)
[2017-11-08 06:06] LABS: Calcium 8.2 MG/DL (8.5-10.1); Osmolality,Calculated 290.3 MOS/KG (273-304); Potassium 3.9 MMOL/L (3.5-5.1)
[2017-11-08] MEDS: FERROUS SULFATE 325 MG TABLET PO SCH ×3 (09:10→21:40)
[2017-11-08] MEDS: THEOPHYLLINE ER 300 MG TABLET PO SCH ×2 (09:10→21:40)
[2017-11-08] MEDS: ALPRAZolam 0.5 MG TABLET PO SCH ×3 (09:10→21:41)
[2017-11-08] MEDS: FUROSEMIDE 40 MG TABLET PO SCH (09:10)
[2017-11-08] MEDS: CARVEDILOL 12.5 MG TABLET PO SCH ×2 (09:10→21:41)
[2017-11-08] MEDS: PANTOPRAZOLE 40 MG TABLET PO SCH ×2 (09:10→21:40)
[2017-11-08] MEDS: POTASSIUM CHLORIDE 20 MEQ TABLET PO SCH (09:10)
[2017-11-08] MEDS: LEVOFLOXACIN 500 MG TABLET PO SCH (09:10)
[2017-11-08] MEDS: INSULIN LISPRO 100 UNIT/ML SUBCUT SCH ×4 (09:22→21:46)
[2017-11-08] MEDS: methylPREDNISolone SOD SUC 40 MG/1 ML VIAL IV SCH (09:23)
[2017-11-08] MEDS: ROSUVASTATIN 20 MG TABLET PO SCH (21:41)
[2017-11-08] MEDS: TEMAZEPAM 15 MG CAPSULE PO SCH (21:46)
[2017-11-08] MEDS: INSULIN GLARGINE 100 UNIT/ML SUBCUT SCH (21:46)
[2017-11-08] MEDS: OMEGA 3 ACID ETHYL ESTERS 1 GM CAPSULE PO SCH (21:48)
[2017-11-09] MEDS: ALBUTEROL/IPRATROPIUM 3 ML NEB RESP TX SCH ×5 (01:01→14:54)
[2017-11-09] MEDS: INSULIN LISPRO 100 UNIT/ML SUBCUT SCH ×3 (08:31→16:40)
[2017-11-09 09:01] LABS: Hematocrit 29.4 VOL% (42.0-52.0); Hemoglobin 9.7 GM/DL (14.0-18.0)
[2017-11-09] MEDS: LEVOFLOXACIN 500 MG TABLET PO SCH (09:41)
[2017-11-09] MEDS: THEOPHYLLINE ER 300 MG TABLET PO SCH (09:41)
[2017-11-09] MEDS: FUROSEMIDE 40 MG TABLET PO SCH (09:41)
[2017-11-09] MEDS: CARVEDILOL 12.5 MG TABLET PO SCH (09:41)
[2017-11-09] MEDS: POTASSIUM CHLORIDE 20 MEQ TABLET PO SCH (09:41)
[2017-11-09] MEDS: ALPRAZolam 0.5 MG TABLET PO SCH ×2 (09:41→16:05)
[2017-11-09] MEDS: methylPREDNISolone SOD SUC 40 MG/1 ML VIAL IV SCH (09:41)
[2017-11-09] MEDS: PANTOPRAZOLE 40 MG TABLET PO SCH (09:41)
[2017-11-09] MEDS: FERROUS SULFATE 325 MG TABLET PO SCH ×2 (09:41→16:05)
[2017-11-09 16:56] VITALS: BP 184/74
== END 2017-11-09 17:41 | disposition home health service (06) | DRG 377 ==
LOC: EDBD → EDUNIT# → N.ED 22:32 → N.EDINP 22:32 → SUATTDRO 11-05 00:40 → N.EDINP 11-05 06:25 → N.TELES 11-05 16:32
PROVIDERS: ADMIT Internal Medicine; ATTEND Hospitalist

== ENCOUNTER 2018-04-28 12:15 | Inpatient (IN) ==
[2018-04-28 16:25] LABS: Basophils # 0.1 10*3/uL (0.0-0.2); Basophils % 1.2 % (0.0-0.8); Eosinophils # 0.2 10*3/uL (0.0-0.87); Eosinophils % 5.4 % (0.00-10.9); Hematocrit 28.4 VOL% (42.0-52.0); Hemoglobin 9.3 GM/DL (14.0-18.0); Immature Granulocytes % 0.7 %; Immature Granulocytes Absolute 0.03 #; Lymphocytes # 0.8 10*3/uL (1.4-4.0); Lymphocytes % 18.1 % (21.2-54.2); Mean Corpuscular HGB Conc 32.7 GM/DL (32-36); Mean Corpuscular Hemoglobin 31 PG (27-34); Mean Corpuscular Volume 93.1 FL (87-102); Mean Platelet Volume 10.1 FL (9.6-12.0); Monocytes # 0.3 10*3/uL (0.11-0.8); Monocytes % 7.8 % (1.7-12.7); Neutrophils # 2.8 10*3/uL (1.4-7.4); Neutrophils % 66.8 % (38.7-73.9); Platelet Count 100 T/CUMM (130-400); Red Blood Count 3.05 MC/CUMM (3.8-5.5); Red Cell Distribution Width 14.9 % (9.3-17.3); White Blood Count 4.3 T/CUMM (4-12)
[2018-04-28 16:39] LABS: Albumin 3.2 G/DL (3.4-5.0); Bilirubin,Total 0.4 MG/DL (0.2-1.0); Calcium 8.6 MG/DL (8.5-10.1); Osmolality,Calculated 288.3 MOS/KG (273-304); Potassium 4.5 MMOL/L (3.5-5.1); Total Protein 6.3 G/DL (6.4-8.3)
[2018-04-28] MEDS ORDERED: ACETAMINOPHEN 325 MG TABLET PO PRN (16:41)
[2018-04-28] MEDS ORDERED: PROMETHAZINE 25 MG/1 ML VIAL IM PRN (16:41)
[2018-04-28] MEDS ORDERED: PROMETHAZINE 25 MG TABLET PO PRN (16:41)
[2018-04-28] MEDS ORDERED: ONDANSETRON 4 MG/2 ML VIAL IV PRN (16:41)
[2018-04-28] MEDS: PANTOPRAZOLE 40 MG TABLET PO SCH (17:46)
[2018-04-28] MEDS: SODIUM CHLORIDE 0.45% 1,000 ML IV SCH (17:46)
[2018-04-28] MEDS ORDERED: HYDROmorphone 2 MG/1 ML VIAL IV PRN (18:06)
[2018-04-28 19:20] LABS: Apearance,Urine CLEAR (Clear); Bilirubin,Urine Negative (Negative); Blood, Urine Negative (Negative); Glucose,Urine (UA) Negative (Negative); Ketones,Urine Negative (Negative); Nitrite,Urine Negative (Negative); Protein,Urine Negative; RBC,Urine <1 /HPF (0-4); Squamous Epithelial Cell,Urine Occasional /HPF (0-10); Urine Color Straw (Yellow); Urine Urobilinogen < 2.0 EU/DL (0.2-1.0)
[2018-04-28] MEDS: metroNIDAZOLE INJ 500 MG in PREMIX 1 EACH IV SCH (20:40)
[2018-04-28] MEDS: LEVOFLOXACIN INJ 500 MG in PREMIX 1 EACH IV SCH (21:45)
[2018-04-29] MEDS: ZALEPLON 5 MG CAPSULE PO PRN ×2 (00:45→01:50)
[2018-04-29 01:57] LABS: Calcium 8.2 MG/DL (8.5-10.1); Osmolality,Calculated 285.3 MOS/KG (273-304); Potassium 4.4 MMOL/L (3.5-5.1)
[2018-04-29] MEDS: metroNIDAZOLE INJ 500 MG in PREMIX 1 EACH IV SCH ×3 (03:31→17:52)
[2018-04-29] MEDS: SODIUM CHLORIDE 0.45% 1,000 ML IV SCH ×3 (05:33→19:00)
[2018-04-29] MEDS: PANTOPRAZOLE 40 MG TABLET PO SCH (09:10)
[2018-04-29] MEDS: LEVOFLOXACIN INJ 500 MG in PREMIX 1 EACH IV SCH (20:37)
[2018-04-29] MEDS: TEMAZEPAM 15 MG CAPSULE PO SCH (21:30)
[2018-04-29] MEDS: ROSUVASTATIN 20 MG TABLET PO SCH (21:30)
[2018-04-29] MEDS: CARVEDILOL 3.125 MG TABLET PO SCH (21:30)
[2018-04-29] MEDS: amLODIPine 10 MG TABLET PO SCH (21:30)
[2018-04-30] MEDS: SODIUM CHLORIDE 0.45% 1,000 ML IV SCH ×3 (00:30→22:00)
[2018-04-30] MEDS: metroNIDAZOLE INJ 500 MG in PREMIX 1 EACH IV SCH ×4 (01:49→18:04)
[2018-04-30 05:26] LABS: Basophils % 0.8 % (0.0-0.8); Eosinophils # 0.2 10*3/uL (0.0-0.87); Eosinophils % 4.4 % (0.00-10.9); Hematocrit 26.9 VOL% (42.0-52.0); Hemoglobin 8.9 GM/DL (14.0-18.0); Immature Granulocytes % 0.3 %; Immature Granulocytes Absolute 0.01 #; Lymphocytes # 0.6 10*3/uL (1.4-4.0); Lymphocytes % 14.2 % (21.2-54.2); Mean Corpuscular HGB Conc 33.1 GM/DL (32-36); Mean Corpuscular Hemoglobin 31 PG (27-34); Mean Corpuscular Volume 92.1 FL (87-102); Mean Platelet Volume 10.1 FL (9.6-12.0); Monocytes # 0.4 10*3/uL (0.11-0.8); Neutrophils # 2.8 10*3/uL (1.4-7.4); Neutrophils % 71.3 % (38.7-73.9); Platelet Count 91 T/CUMM (130-400); Red Blood Count 2.92 MC/CUMM (3.8-5.5); White Blood Count 3.9 T/CUMM (4-12)
[2018-04-30 05:41] LABS: Calcium 7.9 MG/DL (8.5-10.1); Osmolality,Calculated 284.1 MOS/KG (273-304); Potassium 4.2 MMOL/L (3.5-5.1)
[2018-04-30 06:59] LABS: Eosinophils 4 % (0-10); Hypochromasia 1+; Lymphocytes 8 % (20-55); Ovalocytes Slight; Platelet Estimate Decreased; Segmented Neutrophils 84 % (50-85); Total Cells Counted 100
[2018-04-30] MEDS ORDERED: ALBUTEROL/IPRATROPIUM 3 ML NEB RESP TX STA (10:07)
[2018-04-30] MEDS ORDERED: PROPOFOL 200 MG/20 ML VIAL IV ONE (11:11)
[2018-04-30] MEDS ORDERED: LIDOCAINE 100 MG/5 ML SYRINGE ONE (11:11)
[2018-04-30] MEDS: THEOPHYLLINE ER 300 MG TABLET PO SCH ×2 (11:23→16:36)
[2018-04-30] MEDS: CARVEDILOL 3.125 MG TABLET PO SCH ×2 (11:23→20:25)
[2018-04-30] MEDS: PANTOPRAZOLE 40 MG TABLET PO SCH (13:13)
[2018-04-30] MEDS: amLODIPine 10 MG TABLET PO SCH (13:14)
[2018-04-30] MEDS: hydrALAZINE 10 MG TABLET PO SCH ×2 (13:14→20:24)
[2018-04-30] MEDS: LEVOFLOXACIN INJ 500 MG in PREMIX 1 EACH IV SCH (20:03)
[2018-04-30] MEDS: TEMAZEPAM 15 MG CAPSULE PO SCH (20:24)
[2018-04-30] MEDS: ROSUVASTATIN 20 MG TABLET PO SCH (20:25)
[2018-05-01] MEDS: SODIUM CHLORIDE 0.45% 1,000 ML IV SCH ×2 (02:15→09:33)
[2018-05-01] MEDS: metroNIDAZOLE INJ 500 MG in PREMIX 1 EACH IV SCH ×2 (02:17→09:32)
[2018-05-01] MEDS: THEOPHYLLINE ER 300 MG TABLET PO SCH (08:29)
[2018-05-01] MEDS: hydrALAZINE 10 MG TABLET PO SCH (08:30)
[2018-05-01] MEDS: PANTOPRAZOLE 40 MG TABLET PO SCH (08:30)
[2018-05-01] MEDS: amLODIPine 10 MG TABLET PO SCH (08:30)
[2018-05-01] MEDS: CARVEDILOL 3.125 MG TABLET PO SCH (08:30)
[2018-05-01 09:25] LABS: Hematocrit 28.7 VOL% (42.0-52.0); Hemoglobin 9.5 GM/DL (14.0-18.0)
[2018-05-01 11:29] VITALS: BP 136/64
== END 2018-05-01 16:12 | disposition home or self-care (01) | DRG 378 ==
LOC: N.TELEN → SUATTDRO 13:24
PROVIDERS: ADMIT Internal Medicine; ATTEND Internal Medicine

== ENCOUNTER 2018-11-29 10:57 | Inpatient (IN) ==
[2018-11-29] MEDS ORDERED: AZITHROMYCIN INJ 500 MG in SODIUM CHLORIDE 0.9% 250 ML IV STA (11:09)
[2018-11-29] MEDS ORDERED: ONDANSETRON 4 MG/2 ML VIAL IV STA (11:09)
[2018-11-29] MEDS ORDERED: ALBUTEROL NEB SOLN 5 MG/ML 20 ML/BOTTLE CONT NEB STA (11:09)
[2018-11-29] MEDS ORDERED: fentaNYL 100 MCG/2 ML VIAL IV STA (11:09)
[2018-11-29 11:39] LABS: PT Patient Result 11.3 SECS; Partial Thromboplastin Time 25.8 SECS (0-40)
[2018-11-29 11:49] LABS: Albumin 3.1 G/DL (3.4-5.0); Bilirubin,Total 0.4 MG/DL (0.2-1.0); CKMB % 5.3 %; Calcium 8.8 MG/DL (8.5-10.1); Osmolality,Calculated 277.7 MOS/KG (273-304); Total Protein 7.7 G/DL (6.4-8.3); Troponin I 0.041 NG/ML (0.00-0.045)
[2018-11-29] MEDS ORDERED: cefTRIAXone 1,000 MG in SODIUM CHLORIDE 0.9% 100 ML IV STA (11:56)
[2018-11-29 12:01] LABS: Basophils % 0.6 % (0.0-0.8); Eosinophils # 0.1 10*3/uL (0.0-0.87); Eosinophils % 1.6 % (0.00-10.9); Hematocrit 35.5 VOL% (42.0-52.0); Hemoglobin 10.6 GM/DL (14.0-18.0); Immature Granulocytes % 0.4 %; Immature Granulocytes Absolute 0.02 #; Lymphocytes # 0.5 10*3/uL (1.4-4.0); Lymphocytes % 9.3 % (21.2-54.2); Mean Corpuscular HGB Conc 29.9 GM/DL (32-36); Mean Corpuscular Volume 83.5 FL (87-102); Mean Platelet Volume 11.4 FL (9.6-12.0); Monocytes % 4.9 % (1.7-12.7); Neutrophils % 83.2 % (38.7-73.9); Platelet Count 215 T/CUMM (130-400); Red Blood Count 4.25 MC/CUMM (3.8-5.5); Red Cell Distribution Width 15.7 % (9.3-17.3); White Blood Count 4.9 T/CUMM (4-12)
[2018-11-29 12:18] LABS: Apearance,Urine CLEAR (Clear); Bilirubin,Urine Negative (Negative); Blood, Urine Negative (Negative); Glucose,Urine (UA) Negative (Negative); Ketones,Urine Negative (Negative); Nitrite,Urine Negative (Negative); Protein,Urine Negative; RBC,Urine <1 /HPF (0-4); Squamous Epithelial Cell,Urine Occasional /HPF (0-10); Urine Color Straw (Yellow); Urine Specific Gravity 1.008 (1.001-1.035); Urine Urobilinogen < 2.0 EU/DL (0.2-1.0); WBC,Urine 1 /HPF (0-6)
[2018-11-29 12:41] LABS: Barbiturates Screen,Urine Negative (Negative); Benzodiazepines Screen,Urine Negative (Negative); Cannabinoid Screen,Urine Negative (Negative); Opiate Screen,Urine Negative (Negative); Phencyclidine Screen,Urine Negative (Negative)
[2018-11-29] MEDS ORDERED: NICOTINE 21 MG/24 HR PATCH TRANSDERM PRN (14:07)
[2018-11-29] MEDS ORDERED: DOCUSATE SODIUM 100 MG CAPSULE PO PRN (14:07)
[2018-11-29] MEDS ORDERED: ACETAMINOPHEN 325 MG TABLET PO PRN (14:07)
[2018-11-29] MEDS ORDERED: ENOXAPARIN 40 MG/0.4 ML SYRINGE SUBCUT SCH (14:30)
[2018-11-29] MEDS ORDERED: NITROGLYCERIN SL 0.4 MG TABLET SL PRN (15:13)
[2018-11-29] MEDS ORDERED: FUROSEMIDE 40 MG/4 ML VIAL IV ONE (16:36)
[2018-11-29] MEDS ORDERED: GLUCAGON 1 MG VIAL IM PRN (16:38)
[2018-11-29] MEDS ORDERED: DEXTROSE 50% 25 GM/50 ML VIAL IV PRN (16:38)
[2018-11-29] MEDS: MORPHINE 4 MG/1 ML VIAL IV PRN ×2 (17:04→23:01)
[2018-11-29] MEDS: POTASSIUM CHLORIDE 20 MEQ TABLET PO SCH (17:09)
[2018-11-29] MEDS: FUROSEMIDE 20 MG/2 ML VIAL IV SCH (17:10)
[2018-11-29] MEDS: methylPREDNISolone SOD SUC 40 MG/1 ML VIAL IV SCH (17:14)
[2018-11-29] MEDS: NICOTINE 21 MG/24 HR PATCH TRANSDERM SCH (18:47)
[2018-11-29] MEDS ORDERED: ALBUTEROL/IPRATROPIUM 3 ML NEB RESP TX SCH (19:00)
[2018-11-29] MEDS: ALBUTEROL/IPRATROPIUM 3 ML NEB RESP TX SCH ×2 (19:48→23:17)
[2018-11-29] MEDS: FERROUS SULFATE 325 MG TABLET PO SCH (21:04)
[2018-11-29] MEDS: ROSUVASTATIN 20 MG TABLET PO SCH (21:04)
[2018-11-29] MEDS: THEOPHYLLINE ER 300 MG TABLET PO SCH (21:05)
[2018-11-29] MEDS: CARVEDILOL 3.125 MG TABLET PO SCH (21:05)
[2018-11-29] MEDS: INSULIN REGULAR 100 UNIT/ML SUBCUT SCH (21:05)
[2018-11-29] MEDS: POLYETHYLENE GLYCOL POWDER 17 GM PACK PO SCH (21:06)
[2018-11-29] MEDS: PANTOPRAZOLE 40 MG TABLET PO SCH (21:06)
[2018-11-29] MEDS ORDERED: ACETAMINOPHEN 325 MG TABLET PO ONE (21:19)
[2018-11-29] MEDS ORDERED: diphenhydrAMINE CAP 50 MG CAPSULE PO ONE (21:19)
[2018-11-30] MEDS: ALBUTEROL/IPRATROPIUM 3 ML NEB RESP TX SCH ×6 (03:27→22:20)
[2018-11-30 05:43] LABS: Hematocrit 30.4 VOL% (42.0-52.0); Hemoglobin 9.1 GM/DL (14.0-18.0); Immature Granulocytes % 0.6 %; Immature Granulocytes Absolute 0.02 #; Lymphocytes # 0.4 10*3/uL (1.4-4.0); Mean Corpuscular HGB Conc 29.9 GM/DL (32-36); Mean Corpuscular Volume 82.6 FL (87-102); Monocytes % 2.8 % (1.7-12.7); Neutrophils % 86.6 % (38.7-73.9); Platelet Count 186 T/CUMM (130-400); Red Blood Count 3.68 MC/CUMM (3.8-5.5); Red Cell Distribution Width 15.3 % (9.3-17.3); White Blood Count 3.6 T/CUMM (4-12)
[2018-11-30 06:13] LABS: Hemoglobin A1C 5.1 % (4.2-6.3)
[2018-11-30 06:16] LABS: Calcium 8.5 MG/DL (8.5-10.1)
[2018-11-30] MEDS: methylPREDNISolone SOD SUC 40 MG/1 ML VIAL IV SCH ×2 (06:31→17:49)
[2018-11-30 06:39] LABS: Theophylline 15.8 UG/ML (10-20)
[2018-11-30] MEDS ORDERED: FUROSEMIDE 40 MG TABLET PO SCH (09:00)
[2018-11-30] MEDS ORDERED: cefTRIAXone 2,000 MG in SYRINGE 1 EACH IV SCH (09:00)
[2018-11-30] MEDS ORDERED: PANTOPRAZOLE 40 MG TABLET PO SCH (09:00)
[2018-11-30] MEDS: FUROSEMIDE 20 MG/2 ML VIAL IV SCH ×2 (09:30→16:33)
[2018-11-30] MEDS: INSULIN REGULAR 100 UNIT/ML SUBCUT SCH ×4 (09:48→21:36)
[2018-11-30] MEDS: MORPHINE 4 MG/1 ML VIAL IV PRN ×3 (09:49→21:37)
[2018-11-30] MEDS: CARVEDILOL 3.125 MG TABLET PO SCH ×2 (09:54→21:33)
[2018-11-30] MEDS: amLODIPine 10 MG TABLET PO SCH (09:54)
[2018-11-30] MEDS ORDERED: SEVOFLURANE 1 UNIT/15 MINUTE INH ONE (12:24)
[2018-11-30] MEDS ORDERED: ETOMIDATE 40 MG/20 ML VIAL IV ONE (12:25)
[2018-11-30] MEDS ORDERED: fentaNYL 100 MCG/2 ML VIAL ONE (12:25)
[2018-11-30] MEDS ORDERED: DEXAMETHASONE 4 MG/1 ML VIAL ONE (12:25)
[2018-11-30] MEDS ORDERED: ONDANSETRON 4 MG/2 ML VIAL ONE (12:25)
[2018-11-30] MEDS ORDERED: GLYCOPYRROLATE 0.4 MG/2 ML VIAL ONE (12:25)
[2018-11-30] MEDS ORDERED: PHENYLEPHRINE 1 MG/10 ML SYRINGE IV ONE (12:26)
[2018-11-30] MEDS ORDERED: NEOSTIGMINE 10 MG/10 ML VIAL ONE (12:26)
[2018-11-30] MEDS ORDERED: ROCURONIUM 100 MG/10 ML VIAL IV ONE (12:26)
[2018-11-30] MEDS ORDERED: SODIUM CHLORIDE 0.9% 1,000 ML IV ONE (12:26)
[2018-11-30] MEDS ORDERED: ACETAMINOPHEN 1,000 MG/100 ML VIAL IV ONE (12:26)
[2018-11-30] MEDS: ASPIRIN EC 81 MG TABLET PO SCH (13:16)
[2018-11-30] MEDS: FERROUS SULFATE 325 MG TABLET PO SCH ×3 (13:17→21:33)
[2018-11-30] MEDS: DOCUSATE SODIUM 100 MG CAPSULE PO SCH (13:17)
[2018-11-30] MEDS: POLYETHYLENE GLYCOL POWDER 17 GM PACK PO SCH ×2 (13:18→22:07)
[2018-11-30] MEDS: PANTOPRAZOLE 40 MG TABLET PO SCH ×2 (13:19→21:33)
[2018-11-30] MEDS: AZITHROMYCIN INJ 500 MG in SODIUM CHLORIDE 0.9% 250 ML IV SCH (13:36)
[2018-11-30] MEDS: ONDANSETRON 4 MG/2 ML VIAL IV PRN (13:42)
[2018-11-30] MEDS: POTASSIUM CHLORIDE 20 MEQ TABLET PO SCH (16:30)
[2018-11-30] MEDS: THEOPHYLLINE ER 300 MG TABLET PO SCH ×2 (16:31→22:54)
[2018-11-30] MEDS: APIXABAN 2.5 MG TABLET PO SCH ×2 (16:31→21:33)
[2018-11-30] MEDS: NICOTINE 21 MG/24 HR PATCH TRANSDERM SCH (16:38)
[2018-11-30] MEDS: ceFAZolin 1,000 MG in SYRINGE 1 EACH IV SCH ×2 (16:46→17:46)
[2018-11-30] MEDS ORDERED: APIXABAN 5 MG TABLET PO SCH (21:00)
[2018-11-30] MEDS: ROSUVASTATIN 20 MG TABLET PO SCH (21:33)
[2018-12-01] MEDS: ALBUTEROL/IPRATROPIUM 3 ML NEB RESP TX SCH ×6 (02:15→23:16)
[2018-12-01] MEDS: ceFAZolin 1,000 MG in SYRINGE 1 EACH IV SCH ×3 (02:45→20:00)
[2018-12-01] MEDS: methylPREDNISolone SOD SUC 40 MG/1 ML VIAL IV SCH (05:35)
[2018-12-01] MEDS: THEOPHYLLINE ER 300 MG TABLET PO SCH ×2 (08:29→21:59)
[2018-12-01] MEDS: POTASSIUM CHLORIDE 20 MEQ TABLET PO SCH (08:29)
[2018-12-01] MEDS: APIXABAN 2.5 MG TABLET PO SCH ×2 (08:31→21:58)
[2018-12-01] MEDS: FERROUS SULFATE 325 MG TABLET PO SCH ×3 (08:31→21:59)
[2018-12-01] MEDS: CARVEDILOL 3.125 MG TABLET PO SCH ×2 (08:32→21:59)
[2018-12-01] MEDS: PANTOPRAZOLE 40 MG TABLET PO SCH ×2 (08:33→21:59)
[2018-12-01] MEDS: INSULIN REGULAR 100 UNIT/ML SUBCUT SCH ×4 (08:35→22:52)
[2018-12-01] MEDS: ASPIRIN EC 81 MG TABLET PO SCH (08:39)
[2018-12-01] MEDS: amLODIPine 10 MG TABLET PO SCH (08:39)
[2018-12-01] MEDS: FUROSEMIDE 20 MG/2 ML VIAL IV SCH (08:40)
[2018-12-01] MEDS: NICOTINE 21 MG/24 HR PATCH TRANSDERM SCH (08:43)
[2018-12-01] MEDS: DOCUSATE SODIUM 100 MG CAPSULE PO SCH (09:53)
[2018-12-01] MEDS: POLYETHYLENE GLYCOL POWDER 17 GM PACK PO SCH ×2 (09:53→22:21)
[2018-12-01] MEDS: AZITHROMYCIN INJ 500 MG in SODIUM CHLORIDE 0.9% 250 ML IV SCH (10:00)
[2018-12-01] MEDS ORDERED: FUROSEMIDE 40 MG/4 ML VIAL IV SCH (12:59)
[2018-12-01] MEDS: buPROPion SR 100 MG TABLET PO SCH ×2 (16:48→21:58)
[2018-12-01] MEDS: LEVOFLOXACIN 500 MG TABLET PO SCH (16:49)
[2018-12-01] MEDS: ROSUVASTATIN 20 MG TABLET PO SCH (21:58)
[2018-12-01] MEDS: ZALEPLON 5 MG CAPSULE PO PRN (21:59)
[2018-12-01] MEDS: ALLOPURINOL 100 MG TABLET PO SCH (21:59)
[2018-12-01] MEDS: FUROSEMIDE 40 MG TABLET PO SCH (21:59)
[2018-12-02] MEDS: ceFAZolin 1,000 MG in SYRINGE 1 EACH IV SCH (02:30)
[2018-12-02] MEDS: ALBUTEROL/IPRATROPIUM 3 ML NEB RESP TX SCH ×6 (02:51→23:55)
[2018-12-02 05:50] LABS: Basophils % 0.4 % (0.0-0.8); Eosinophils # 0.1 10*3/uL (0.0-0.87); Hematocrit 25.6 VOL% (42.0-52.0); Immature Granulocytes % 0.8 %; Immature Granulocytes Absolute 0.04 #; Lymphocytes # 0.5 10*3/uL (1.4-4.0); Lymphocytes % 9.8 % (21.2-54.2); Mean Corpuscular HGB Conc 29.3 GM/DL (32-36); Mean Corpuscular Volume 84.8 FL (87-102); Mean Platelet Volume 10.5 FL (9.6-12.0); Platelet Count 154 T/CUMM (130-400); Red Blood Count 3.02 MC/CUMM (3.8-5.5); Red Cell Distribution Width 16.1 % (9.3-17.3)
[2018-12-02 06:09] LABS: Calcium 8.1 MG/DL (8.5-10.1); Osmolality,Calculated 281.8 MOS/KG (273-304)
[2018-12-02 06:12] LABS: Hemoglobin 7.5 GM/DL (14.0-18.0)
[2018-12-02] MEDS: INSULIN REGULAR 100 UNIT/ML SUBCUT SCH ×4 (07:54→20:30)
[2018-12-02] MEDS: POLYETHYLENE GLYCOL POWDER 17 GM PACK PO SCH ×2 (08:35→20:30)
[2018-12-02] MEDS: THEOPHYLLINE ER 300 MG TABLET PO SCH ×2 (08:36→20:29)
[2018-12-02] MEDS: buPROPion SR 100 MG TABLET PO SCH ×2 (08:36→20:29)
[2018-12-02] MEDS: ASPIRIN EC 81 MG TABLET PO SCH (08:36)
[2018-12-02] MEDS: amLODIPine 10 MG TABLET PO SCH (08:36)
[2018-12-02] MEDS: LEVOFLOXACIN 500 MG TABLET PO SCH (08:36)
[2018-12-02] MEDS: FUROSEMIDE 40 MG TABLET PO SCH ×2 (08:36→15:05)
[2018-12-02] MEDS: POTASSIUM CHLORIDE 20 MEQ TABLET PO SCH (08:36)
[2018-12-02] MEDS: APIXABAN 2.5 MG TABLET PO SCH ×2 (08:36→20:29)
[2018-12-02] MEDS: CARVEDILOL 3.125 MG TABLET PO SCH ×2 (08:37→20:29)
[2018-12-02] MEDS: PANTOPRAZOLE 40 MG TABLET PO SCH ×2 (08:37→20:29)
[2018-12-02] MEDS: FERROUS SULFATE 325 MG TABLET PO SCH ×3 (08:37→20:29)
[2018-12-02] MEDS: DOCUSATE SODIUM 100 MG CAPSULE PO SCH (08:37)
[2018-12-02] MEDS: NICOTINE 21 MG/24 HR PATCH TRANSDERM SCH (09:58)
[2018-12-02] MEDS: MORPHINE 4 MG/1 ML VIAL IV PRN ×2 (10:37→15:11)
[2018-12-02] MEDS: MAGNESIUM HYDROXIDE SUSP 30 ML UDCUP PO PRN (14:14)
[2018-12-02] MEDS: BISACODYL 5 MG TABLET PO PRN (14:14)
[2018-12-02] MEDS ORDERED: SODIUM CHLORIDE 0.9% 1,000 ML IV PRN (14:23)
[2018-12-02] MEDS: ALLOPURINOL 100 MG TABLET PO SCH (20:29)
[2018-12-02] MEDS: ROSUVASTATIN 20 MG TABLET PO SCH (20:29)
[2018-12-02] MEDS: ZALEPLON 5 MG CAPSULE PO PRN (20:34)
[2018-12-02 22:33] LABS: Hematocrit 27.8 VOL% (42.0-52.0); Hemoglobin 8.6 GM/DL (14.0-18.0)
[2018-12-03] MEDS: MORPHINE 4 MG/1 ML VIAL IV PRN (02:30)
[2018-12-03] MEDS: ALBUTEROL/IPRATROPIUM 3 ML NEB RESP TX SCH ×3 (04:53→11:20)
[2018-12-03 06:23] LABS: Basophils % 0.5 % (0.0-0.8); Eosinophils # 0.1 10*3/uL (0.0-0.87); Eosinophils % 2.9 % (0.00-10.9); Hemoglobin 8.3 GM/DL (14.0-18.0); Immature Granulocytes % 0.7 %; Immature Granulocytes Absolute 0.03 #; Lymphocytes # 0.5 10*3/uL (1.4-4.0); Lymphocytes % 11.5 % (21.2-54.2); Mean Corpuscular HGB Conc 29.6 GM/DL (32-36); Mean Corpuscular Volume 83.8 FL (87-102); Mean Platelet Volume 10.7 FL (9.6-12.0); Monocytes % 8.4 % (1.7-12.7); Platelet Count 159 T/CUMM (130-400); Red Blood Count 3.34 MC/CUMM (3.8-5.5); Red Cell Distribution Width 17.3 % (9.3-17.3); White Blood Count 4.2 T/CUMM (4-12)
[2018-12-03 06:41] LABS: Calcium 8.5 MG/DL (8.5-10.1); Osmolality,Calculated 279.8 MOS/KG (273-304)
[2018-12-03] MEDS: INSULIN REGULAR 100 UNIT/ML SUBCUT SCH ×2 (07:42→11:38)
[2018-12-03] MEDS: LEVOFLOXACIN 500 MG TABLET PO SCH (08:35)
[2018-12-03] MEDS: POLYETHYLENE GLYCOL POWDER 17 GM PACK PO SCH (08:35)
[2018-12-03] MEDS: MAGNESIUM HYDROXIDE SUSP 30 ML UDCUP PO PRN (08:35)
[2018-12-03] MEDS: DOCUSATE SODIUM 100 MG CAPSULE PO SCH (08:36)
[2018-12-03] MEDS: amLODIPine 10 MG TABLET PO SCH (08:36)
[2018-12-03] MEDS: buPROPion SR 100 MG TABLET PO SCH (08:36)
[2018-12-03] MEDS: FERROUS SULFATE 325 MG TABLET PO SCH (08:36)
[2018-12-03] MEDS: POTASSIUM CHLORIDE 20 MEQ TABLET PO SCH (08:36)
[2018-12-03] MEDS: FUROSEMIDE 40 MG TABLET PO SCH (08:36)
[2018-12-03] MEDS: ASPIRIN EC 81 MG TABLET PO SCH (08:36)
[2018-12-03] MEDS: THEOPHYLLINE ER 300 MG TABLET PO SCH (08:36)
[2018-12-03] MEDS: PANTOPRAZOLE 40 MG TABLET PO SCH (08:36)
[2018-12-03] MEDS: APIXABAN 2.5 MG TABLET PO SCH (08:36)
[2018-12-03] MEDS: CARVEDILOL 3.125 MG TABLET PO SCH (08:37)
[2018-12-03] MEDS: NICOTINE 21 MG/24 HR PATCH TRANSDERM SCH (10:00)
[2018-12-03] MEDS: ONDANSETRON 4 MG/2 ML VIAL IV PRN (10:00)
[2018-12-03] MEDS: BISACODYL 5 MG TABLET PO PRN (10:31)
[2018-12-03 11:24] VITALS: BP 138/66
== END 2018-12-03 14:15 | DRG 480 ==
LOC: EDUNIT# → EDBD → N.ED 10:57 → N.EDINP 13:42 → N.5E 15:18 → N.3E 12-01 20:02
PROVIDERS: ADMIT Hospitalist; ATTEND Hospitalist

== ENCOUNTER 2019-01-27 19:06 | Inpatient (IN) ==
[2019-01-27] MEDS ORDERED: ASPIRIN 325 MG TABLET PO STA (19:45)
[2019-01-27] MEDS ORDERED: NITROGLYCERIN 2% OINT 1 INCH/GM PACK TOP STA (19:57)
[2019-01-27] MEDS ORDERED: MORPHINE 4 MG/1 ML VIAL IV STA (19:58)
[2019-01-27 20:14] LABS: Alanine Aminotransferase 15 U/L (16-61); Alkaline Phosphatase 59 U/L (45-117); Aspartate Amino Transferase 16 U/L (0-37); Bilirubin,Total < 0.39 MG/DL (0.2-1.0); Blood Urea Nitrogen 34 MG/DL (7-18); Calcium 8.5 MG/DL (8.5-10.1); Glucose 201 MG/DL (74-106); Osmolality,Calculated 288.7 MOS/KG (273-304); Total Protein 5.8 G/DL (6.4-8.3)
[2019-01-27 20:43] LABS: Basophils % 0.6 % (0.0-0.8); Eosinophils # 0.1 10*3/uL (0.0-0.87); Eosinophils % 3.9 % (0.00-10.9); Immature Granulocytes % 0.6 %; Immature Granulocytes Absolute 0.02 #; Lymphocytes # 0.6 10*3/uL (1.4-4.0); Lymphocytes % 20.3 % (21.2-54.2); Mean Corpuscular HGB Conc 28.9 GM/DL (32-36); Mean Corpuscular Volume 96.9 FL (87-102); Mean Platelet Volume 10.4 FL (9.6-12.0); Monocytes % 12.3 % (1.7-12.7); Neutrophils % 62.3 % (38.7-73.9); Platelet Count 109 T/CUMM (130-400); Red Blood Count 1.96 MC/CUMM (3.8-5.5); Red Cell Distribution Width 17.7 % (9.3-17.3); White Blood Count 3.1 T/CUMM (4-12)
[2019-01-27 20:46] LABS: Hemoglobin 5.5 GM/DL (14.0-18.0)
[2019-01-27] MEDS ORDERED: SODIUM CHLORIDE 0.9% 1,000 ML IV PRN (20:48)
[2019-01-27 20:50] LABS: Eosinophils 3 % (0-10); Lymphocytes 22 % (20-55); Segmented Neutrophils 63 % (50-85); Total Cells Counted 100
[2019-01-27 20:51] LABS: Hypochromasia 1+; Microcytosis 1+; Platelet Estimate Adequate; Polychromasia 1+
[2019-01-27 20:52] LABS: Macrocytosis 1+; Ovalocytes Slight; Poikilocytosis 1+
[2019-01-28] MEDS ORDERED: PANTOPRAZOLE 40 MG VIAL IV SCH (01:18)
[2019-01-28] MEDS ORDERED: DEXTROSE 50% 25 GM/50 ML VIAL IV PRN (01:18)
[2019-01-28] MEDS ORDERED: ALBUTEROL 2.5 MG/3 ML NEB RESP TX PRN (01:18)
[2019-01-28] MEDS ORDERED: GLUCAGON 1 MG VIAL IM PRN (01:18)
[2019-01-28 01:50] LABS: Basophils % 0.8 % (0.0-0.8); Eosinophils # 0.2 10*3/uL (0.0-0.87); Hematocrit 19.1 VOL% (42.0-52.0); Immature Granulocytes % 0.5 %; Immature Granulocytes Absolute 0.02 #; Lymphocytes # 0.9 10*3/uL (1.4-4.0); Mean Corpuscular HGB Conc 28.3 GM/DL (32-36); Mean Corpuscular Volume 98.5 FL (87-102); Mean Platelet Volume 9.9 FL (9.6-12.0); Monocytes % 11.2 % (1.7-12.7); Neutrophils % 59.5 % (38.7-73.9); Platelet Count 128 T/CUMM (130-400); Red Blood Count 1.94 MC/CUMM (3.8-5.5); Red Cell Distribution Width 17.9 % (9.3-17.3); White Blood Count 3.8 T/CUMM (4-12)
[2019-01-28 01:54] LABS: Hemoglobin 5.4 GM/DL (14.0-18.0)
[2019-01-28 01:56] LABS: PT Patient Result 10.9 SECS
[2019-01-28 02:18] LABS: Calcium 8.3 MG/DL (8.5-10.1); Osmolality,Calculated 288.4 MOS/KG (273-304)
[2019-01-28] MEDS: MORPHINE 4 MG/1 ML VIAL IV PRN ×4 (02:23→18:45)
[2019-01-28] MEDS: NITROGLYCERIN SL 0.4 MG TABLET SL PRN ×2 (02:27→02:32)
[2019-01-28 03:56] LABS: Hypochromasia 1+; Microcytosis 1+; Polychromasia Few
[2019-01-28 03:58] LABS: Platelet Estimate Decreased
[2019-01-28] MEDS: INSULIN LISPRO 100 UNIT/ML SUBCUT SCH ×3 (05:56→18:44)
[2019-01-28] MEDS: PANTOPRAZOLE INJ 200 MG in SODIUM CHLORIDE 0.9% 250 ML IV SCH (06:25)
[2019-01-28] MEDS: CARVEDILOL 3.125 MG TABLET PO SCH ×2 (11:28→21:00)
[2019-01-28] MEDS: ISOSORBIDE MONONITRATE 30 MG TABLET PO SCH (11:28)
[2019-01-28] MEDS: FERROUS SULFATE 325 MG TABLET PO SCH ×2 (15:30→21:00)
[2019-01-28 16:49] LABS: Hematocrit 24.4 VOL% (42.0-52.0)
[2019-01-28 16:52] LABS: Hemoglobin 7.4 GM/DL (14.0-18.0)
[2019-01-28] MEDS: ROSUVASTATIN 20 MG TABLET PO SCH (21:00)
[2019-01-28] MEDS: ONDANSETRON 4 MG/2 ML VIAL IV PRN (22:59)
[2019-01-29 04:46] LABS: Basophils % 0.9 % (0.0-0.8); Eosinophils # 0.2 10*3/uL (0.0-0.87); Eosinophils % 4.6 % (0.00-10.9); Hematocrit 21.7 VOL% (42.0-52.0); Hemoglobin 6.6 GM/DL (14.0-18.0); Immature Granulocytes % 0.6 %; Immature Granulocytes Absolute 0.02 #; Lymphocytes # 0.5 10*3/uL (1.4-4.0); Lymphocytes % 13.4 % (21.2-54.2); Mean Corpuscular HGB Conc 30.4 GM/DL (32-36); Mean Corpuscular Volume 93.1 FL (87-102); Mean Platelet Volume 10.2 FL (9.6-12.0); Monocytes % 10.5 % (1.7-12.7); Red Blood Count 2.33 MC/CUMM (3.8-5.5); Red Cell Distribution Width 18.3 % (9.3-17.3); White Blood Count 3.5 T/CUMM (4-12)
[2019-01-29 04:54] LABS: Platelet Count 95 T/CUMM (130-400)
[2019-01-29 05:05] LABS: Risk Ratio 2.61; VLDL CHOLESTEROL 24.2 MG/DL
[2019-01-29 05:09] LABS: Calcium 8.3 MG/DL (8.5-10.1); Osmolality,Calculated 289.3 MOS/KG (273-304)
[2019-01-29] MEDS ORDERED: SODIUM CHLORIDE 0.9% 1,000 ML IV PRN (05:27)
[2019-01-29] MEDS: INSULIN LISPRO 100 UNIT/ML SUBCUT SCH ×3 (06:41→18:08)
[2019-01-29] MEDS ORDERED: LACTATED RINGERS 1,000 ML IV SCH (08:00)
[2019-01-29] MEDS: MORPHINE 4 MG/1 ML VIAL IV PRN ×2 (08:07→20:26)
[2019-01-29] MEDS: PANTOPRAZOLE INJ 200 MG in SODIUM CHLORIDE 0.9% 250 ML IV SCH (08:10)
[2019-01-29] MEDS ORDERED: PROPOFOL 200 MG/20 ML VIAL IV ONE (11:00)
[2019-01-29] MEDS ORDERED: LIDOCAINE 2% 5 ML VIAL ONE (11:00)
[2019-01-29] MEDS ORDERED: DEXTROSE 50% 25 GM/50 ML VIAL IV PRN (12:12)
[2019-01-29] MEDS ORDERED: GLUCAGON 1 MG VIAL IM PRN (12:12)
[2019-01-29] MEDS: CARVEDILOL 3.125 MG TABLET PO SCH (12:17)
[2019-01-29] MEDS: ISOSORBIDE MONONITRATE 30 MG TABLET PO SCH (12:18)
[2019-01-29] MEDS: FERROUS SULFATE 325 MG TABLET PO SCH ×3 (12:18→20:24)
[2019-01-29 13:46] LABS: Hematocrit 27.2 VOL% (42.0-52.0)
[2019-01-29 13:49] LABS: Hemoglobin 8.7 GM/DL (14.0-18.0)
[2019-01-29] MEDS: ROSUVASTATIN 20 MG TABLET PO SCH (20:24)
[2019-01-29] MEDS: CARVEDILOL 6.25 MG TABLET PO SCH (20:24)
[2019-01-30] MEDS: INSULIN LISPRO 100 UNIT/ML SUBCUT SCH ×5 (00:47→21:26)
[2019-01-30 08:10] LABS: Basophils % 0.6 % (0.0-0.8); Eosinophils # 0.1 10*3/uL (0.0-0.87); Hematocrit 23.8 VOL% (42.0-52.0); Hemoglobin 7.3 GM/DL (14.0-18.0); Immature Granulocytes % 0.3 %; Immature Granulocytes Absolute 0.01 #; Lymphocytes # 0.5 10*3/uL (1.4-4.0); Lymphocytes % 14.5 % (21.2-54.2); Mean Corpuscular HGB Conc 30.7 GM/DL (32-36); Mean Corpuscular Volume 94.4 FL (87-102); Mean Platelet Volume 9.8 FL (9.6-12.0); Monocytes % 10.4 % (1.7-12.7); Neutrophils % 70.2 % (38.7-73.9); Platelet Count 91 T/CUMM (130-400); Red Blood Count 2.52 MC/CUMM (3.8-5.5); Red Cell Distribution Width 18.2 % (9.3-17.3); White Blood Count 3.5 T/CUMM (4-12)
[2019-01-30] MEDS: FERROUS SULFATE 325 MG TABLET PO SCH ×3 (09:15→21:25)
[2019-01-30] MEDS: ISOSORBIDE MONONITRATE 30 MG TABLET PO SCH (09:15)
[2019-01-30] MEDS: PANTOPRAZOLE INJ 200 MG in SODIUM CHLORIDE 0.9% 250 ML IV SCH (09:15)
[2019-01-30] MEDS: CARVEDILOL 6.25 MG TABLET PO SCH ×2 (09:15→21:25)
[2019-01-30] MEDS ORDERED: ALBUTEROL 2.5 MG/3 ML NEB RESP TX PRN (12:06)
[2019-01-30] MEDS ORDERED: ZALEPLON 5 MG CAPSULE PO PRN (12:06)
[2019-01-30] MEDS: ALBUTEROL/IPRATROPIUM 3 ML NEB RESP TX SCH ×2 (14:00→19:17)
[2019-01-30] MEDS: MORPHINE 4 MG/1 ML VIAL IV PRN (14:10)
[2019-01-30] MEDS ORDERED: INSULIN GLARGINE 100 UNIT/ML SUBCUT PRN (21:00)
[2019-01-30] MEDS: buPROPion SR 100 MG TABLET PO SCH (21:25)
[2019-01-30] MEDS: ROSUVASTATIN 20 MG TABLET PO SCH (21:25)
[2019-01-30] MEDS: PANTOPRAZOLE 40 MG TABLET PO SCH (21:25)
[2019-01-31] MEDS: ALBUTEROL/IPRATROPIUM 3 ML NEB RESP TX SCH ×5 (00:51→19:17)
[2019-01-31] MEDS: MORPHINE 4 MG/1 ML VIAL IV PRN (03:14)
[2019-01-31 04:39] LABS: Basophils % 0.6 % (0.0-0.8); Eosinophils # 0.1 10*3/uL (0.0-0.87); Eosinophils % 4.1 % (0.00-10.9); Hematocrit 20.6 VOL% (42.0-52.0); Immature Granulocytes % 0.3 %; Immature Granulocytes Absolute 0.01 #; Lymphocytes # 0.6 10*3/uL (1.4-4.0); Lymphocytes % 17.6 % (21.2-54.2); Mean Corpuscular HGB Conc 30.1 GM/DL (32-36); Mean Corpuscular Volume 95.4 FL (87-102); Mean Platelet Volume 10.9 FL (9.6-12.0); Monocytes % 11.9 % (1.7-12.7); Neutrophils % 65.5 % (38.7-73.9); Platelet Count 84 T/CUMM (130-400); Red Blood Count 2.16 MC/CUMM (3.8-5.5); Red Cell Distribution Width 19.1 % (9.3-17.3); White Blood Count 3.2 T/CUMM (4-12)
[2019-01-31 04:41] LABS: Hemoglobin 6.2 GM/DL (14.0-18.0)
[2019-01-31] MEDS ORDERED: SODIUM CHLORIDE 0.9% 1,000 ML IV PRN (05:02)
[2019-01-31 05:26] LABS: Anisocytosis 1+; Microcytosis 1+
[2019-01-31 05:27] LABS: Platelet Estimate Decreased; Polychromasia Slight
[2019-01-31] MEDS ORDERED: PANTOPRAZOLE 40 MG VIAL IV SCH (09:00)
[2019-01-31] MEDS: INSULIN LISPRO 100 UNIT/ML SUBCUT SCH ×4 (09:38→21:19)
[2019-01-31] MEDS: CARVEDILOL 6.25 MG TABLET PO SCH ×2 (09:38→21:22)
[2019-01-31] MEDS: ISOSORBIDE MONONITRATE 30 MG TABLET PO SCH (09:38)
[2019-01-31] MEDS: FERROUS SULFATE 325 MG TABLET PO SCH ×3 (09:39→21:19)
[2019-01-31] MEDS: PANTOPRAZOLE 40 MG TABLET PO SCH ×2 (09:39→21:19)
[2019-01-31] MEDS: buPROPion SR 100 MG TABLET PO SCH ×2 (09:39→21:19)
[2019-01-31] MEDS: BISACODYL 5 MG TABLET PO PRN (16:52)
[2019-01-31] MEDS: ACETAMINOPHEN 325 MG TABLET PO PRN (16:52)
[2019-01-31 19:16] LABS: Hematocrit 26.5 VOL% (42.0-52.0); Hemoglobin 8.3 GM/DL (14.0-18.0)
[2019-01-31] MEDS: ROSUVASTATIN 20 MG TABLET PO SCH (21:19)
[2019-02-01] MEDS: ALBUTEROL/IPRATROPIUM 3 ML NEB RESP TX SCH ×4 (01:51→19:09)
[2019-02-01] MEDS: ACETAMINOPHEN 325 MG TABLET PO PRN ×2 (09:12→20:47)
[2019-02-01] MEDS: DOCUSATE SODIUM 100 MG CAPSULE PO SCH ×2 (09:13→20:47)
[2019-02-01] MEDS: INSULIN LISPRO 100 UNIT/ML SUBCUT SCH ×4 (09:13→20:48)
[2019-02-01] MEDS: PANTOPRAZOLE 40 MG TABLET PO SCH ×2 (09:14→20:48)
[2019-02-01] MEDS: buPROPion SR 100 MG TABLET PO SCH ×2 (09:14→20:47)
[2019-02-01] MEDS: FERROUS SULFATE 325 MG TABLET PO SCH ×3 (09:14→20:47)
[2019-02-01] MEDS: BISACODYL 5 MG TABLET PO PRN (09:14)
[2019-02-01] MEDS: ISOSORBIDE MONONITRATE 30 MG TABLET PO SCH (09:14)
[2019-02-01] MEDS: CARVEDILOL 6.25 MG TABLET PO SCH ×2 (09:15→20:47)
[2019-02-01] MEDS: POLYETHYLENE GLYCOL POWDER 17 GM PACK PO SCH (09:15)
[2019-02-01] MEDS: ROSUVASTATIN 20 MG TABLET PO SCH (20:47)
[2019-02-02] MEDS: ALBUTEROL/IPRATROPIUM 3 ML NEB RESP TX SCH ×4 (03:16→19:43)
[2019-02-02] MEDS: INSULIN LISPRO 100 UNIT/ML SUBCUT SCH ×4 (07:10→20:26)
[2019-02-02 08:34] LABS: Hematocrit 22.4 VOL% (42.0-52.0); Hemoglobin 6.8 GM/DL (14.0-18.0)
[2019-02-02] MEDS: POLYETHYLENE GLYCOL POWDER 17 GM PACK PO SCH (09:39)
[2019-02-02] MEDS: DOCUSATE SODIUM 100 MG CAPSULE PO SCH ×2 (09:39→21:43)
[2019-02-02] MEDS: ACETAMINOPHEN 325 MG TABLET PO PRN (09:44)
[2019-02-02] MEDS: buPROPion SR 100 MG TABLET PO SCH ×2 (09:45→22:22)
[2019-02-02] MEDS: ISOSORBIDE MONONITRATE 30 MG TABLET PO SCH (09:45)
[2019-02-02] MEDS: FERROUS SULFATE 325 MG TABLET PO SCH ×3 (09:45→21:43)
[2019-02-02] MEDS: PANTOPRAZOLE 40 MG TABLET PO SCH ×2 (09:45→22:23)
[2019-02-02] MEDS: CARVEDILOL 6.25 MG TABLET PO SCH ×2 (09:45→21:53)
[2019-02-02] MEDS: ROSUVASTATIN 20 MG TABLET PO SCH (21:43)
[2019-02-02 22:42] LABS: Hematocrit 24.7 VOL% (42.0-52.0); Hemoglobin 7.7 GM/DL (14.0-18.0)
[2019-02-03] MEDS: ALBUTEROL/IPRATROPIUM 3 ML NEB RESP TX SCH ×4 (00:51→19:31)
[2019-02-03 05:50] LABS: Basophils % 0.6 % (0.0-0.8); Eosinophils # 0.2 10*3/uL (0.0-0.87); Eosinophils % 5.6 % (0.00-10.9); Hematocrit 24.1 VOL% (42.0-52.0); Hemoglobin 7.4 GM/DL (14.0-18.0); Immature Granulocytes % 0.3 %; Immature Granulocytes Absolute 0.01 #; Lymphocytes # 0.7 10*3/uL (1.4-4.0); Lymphocytes % 20.2 % (21.2-54.2); Mean Corpuscular HGB Conc 30.7 GM/DL (32-36); Mean Corpuscular Volume 97.2 FL (87-102); Mean Platelet Volume 11.1 FL (9.6-12.0); Neutrophils % 63.3 % (38.7-73.9); Platelet Count 84 T/CUMM (130-400); Red Blood Count 2.48 MC/CUMM (3.8-5.5); White Blood Count 3.4 T/CUMM (4-12)
[2019-02-03 06:18] LABS: Hypochromasia 1+; Ovalocytes Slight; Platelet Estimate Decreased
[2019-02-03 06:19] LABS: Microcytosis Slight
[2019-02-03] MEDS ORDERED: SODIUM CHLORIDE 0.9% 1,000 ML IV PRN (07:19)
[2019-02-03] MEDS: INSULIN LISPRO 100 UNIT/ML SUBCUT SCH ×4 (07:20→22:03)
[2019-02-03] MEDS ORDERED: FUROSEMIDE 20 MG/2 ML VIAL IV PRN (07:30)
[2019-02-03 07:55] LABS: Albumin 2.3 G/DL (3.4-5.0); Bilirubin,Total 0.4 MG/DL (0.2-1.0); Calcium 8.1 MG/DL (8.5-10.1); Total Protein 4.8 G/DL (6.4-8.3)
[2019-02-03] MEDS: DOCUSATE SODIUM 100 MG CAPSULE PO SCH ×2 (12:04→21:54)
[2019-02-03] MEDS: POLYETHYLENE GLYCOL POWDER 17 GM PACK PO SCH (12:05)
[2019-02-03] MEDS: ISOSORBIDE MONONITRATE 30 MG TABLET PO SCH (12:05)
[2019-02-03] MEDS: CARVEDILOL 6.25 MG TABLET PO SCH ×2 (12:05→22:02)
[2019-02-03] MEDS: FERROUS SULFATE 325 MG TABLET PO SCH ×3 (12:05→22:02)
[2019-02-03] MEDS: buPROPion SR 100 MG TABLET PO SCH ×2 (12:05→22:02)
[2019-02-03] MEDS ORDERED: BISACODYL 5 MG TABLET PO ONE (15:00)
[2019-02-03] MEDS ORDERED: POLYETHYLENE GLYCOL POWDER 255 GM BOTTLE PO ONE (15:00)
[2019-02-03] MEDS ORDERED: MAGNESIUM CITRATE 300 ML BOTTLE PO ONE (21:00)
[2019-02-03] MEDS: ROSUVASTATIN 20 MG TABLET PO SCH (22:02)
[2019-02-03] MEDS: PANTOPRAZOLE 40 MG TABLET PO SCH (22:02)
[2019-02-04] MEDS: ALBUTEROL/IPRATROPIUM 3 ML NEB RESP TX SCH ×4 (00:12→19:58)
[2019-02-04 05:05] LABS: Basophils % 0.8 % (0.0-0.8); Eosinophils # 0.2 10*3/uL (0.0-0.87); Eosinophils % 4.6 % (0.00-10.9); Hematocrit 25.1 VOL% (42.0-52.0); Hemoglobin 7.8 GM/DL (14.0-18.0); Immature Granulocytes % 0.3 %; Immature Granulocytes Absolute 0.01 #; Lymphocytes # 0.7 10*3/uL (1.4-4.0); Lymphocytes % 19.6 % (21.2-54.2); Mean Corpuscular HGB Conc 31.1 GM/DL (32-36); Mean Corpuscular Volume 94.4 FL (87-102); Mean Platelet Volume 10.7 FL (9.6-12.0); Monocytes % 10.7 % (1.7-12.7); Platelet Count 91 T/CUMM (130-400); Red Blood Count 2.66 MC/CUMM (3.8-5.5); Red Cell Distribution Width 20.5 % (9.3-17.3); White Blood Count 3.7 T/CUMM (4-12)
[2019-02-04 05:18] LABS: PT Patient Result 11.1 SECS
[2019-02-04 05:29] LABS: Hypochromasia 1+; Platelet Estimate Decreased
[2019-02-04 05:30] LABS: Albumin 2.3 G/DL (3.4-5.0); Bilirubin,Total 0.9 MG/DL (0.2-1.0); Microcytosis Slight; Ovalocytes Slight; Total Protein 4.6 G/DL (6.4-8.3)
[2019-02-04] MEDS ORDERED: SODIUM CHLORIDE 0.9% 1,000 ML IV PRN (07:13)
[2019-02-04] MEDS ORDERED: FUROSEMIDE 20 MG/2 ML VIAL IV PRN (07:30)
[2019-02-04] MEDS ORDERED: LACTATED RINGERS 1,000 ML IV SCH (08:00)
[2019-02-04] MEDS ORDERED: POLYETHYLENE GLYCOL POWDER 255 GM BOTTLE PO ONE (08:00)
[2019-02-04] MEDS ORDERED: BISACODYL 5 MG TABLET PO ONE (08:00)
[2019-02-04] MEDS: INSULIN LISPRO 100 UNIT/ML SUBCUT SCH ×4 (08:11→23:36)
[2019-02-04] MEDS: POLYETHYLENE GLYCOL POWDER 17 GM PACK PO SCH (08:56)
[2019-02-04] MEDS: CARVEDILOL 6.25 MG TABLET PO SCH ×2 (08:57→20:58)
[2019-02-04] MEDS: DOCUSATE SODIUM 100 MG CAPSULE PO SCH ×2 (08:57→20:58)
[2019-02-04] MEDS: buPROPion SR 100 MG TABLET PO SCH ×2 (08:57→20:58)
[2019-02-04] MEDS: FERROUS SULFATE 325 MG TABLET PO SCH ×3 (08:57→20:58)
[2019-02-04] MEDS: PANTOPRAZOLE 40 MG TABLET PO SCH ×2 (08:57→20:58)
[2019-02-04] MEDS: ISOSORBIDE MONONITRATE 30 MG TABLET PO SCH (08:57)
[2019-02-04 16:28] LABS: Hematocrit 28.1 VOL% (42.0-52.0); Hemoglobin 8.7 GM/DL (14.0-18.0)
[2019-02-04] MEDS: ROSUVASTATIN 20 MG TABLET PO SCH (20:58)
[2019-02-04] MEDS ORDERED: MAGNESIUM CITRATE 300 ML BOTTLE PO ONE (22:47)
[2019-02-05] MEDS: ALBUTEROL/IPRATROPIUM 3 ML NEB RESP TX SCH ×4 (04:42→18:55)
[2019-02-05 05:08] LABS: Eosinophils # 0.2 10*3/uL (0.0-0.87); Eosinophils % 4.1 % (0.00-10.9); Hematocrit 24.3 VOL% (42.0-52.0); Hemoglobin 7.6 GM/DL (14.0-18.0); Immature Granulocytes % 0.5 %; Immature Granulocytes Absolute 0.02 #; Lymphocytes # 0.6 10*3/uL (1.4-4.0); Lymphocytes % 15.3 % (21.2-54.2); Mean Corpuscular HGB Conc 31.3 GM/DL (32-36); Mean Corpuscular Volume 94.6 FL (87-102); Monocytes % 9.1 % (1.7-12.7); Platelet Count 86 T/CUMM (130-400); Red Blood Count 2.57 MC/CUMM (3.8-5.5); Red Cell Distribution Width 19.8 % (9.3-17.3); White Blood Count 4.2 T/CUMM (4-12)
[2019-02-05 05:35] LABS: Eosinophils 3 % (0-10); Hypochromasia 1+; Lymphocytes 19 % (20-55); Platelet Estimate Decreased; Segmented Neutrophils 72 % (50-85); Total Cells Counted 100
[2019-02-05 05:36] LABS: Microcytosis Slight; Ovalocytes Slight
[2019-02-05 05:41] LABS: Albumin 2.2 G/DL (3.4-5.0); Bilirubin,Total 0.7 MG/DL (0.2-1.0); Calcium 8.2 MG/DL (8.5-10.1); Osmolality,Calculated 297.8 MOS/KG (273-304); Total Protein 4.5 G/DL (6.4-8.3)
[2019-02-05] MEDS: INSULIN LISPRO 100 UNIT/ML SUBCUT SCH ×4 (08:47→20:04)
[2019-02-05] MEDS ORDERED: ETOMIDATE 20 MG/10 ML VIAL IV ONE (09:00)
[2019-02-05] MEDS ORDERED: PROPOFOL 200 MG/20 ML VIAL IV ONE (09:00)
[2019-02-05] MEDS ORDERED: LIDOCAINE 2% 5 ML VIAL ONE (09:00)
[2019-02-05] MEDS: CARVEDILOL 6.25 MG TABLET PO SCH ×2 (13:42→20:03)
[2019-02-05] MEDS: PANTOPRAZOLE 40 MG TABLET PO SCH ×2 (13:42→20:03)
[2019-02-05] MEDS: buPROPion SR 100 MG TABLET PO SCH ×2 (13:42→20:03)
[2019-02-05] MEDS: DOCUSATE SODIUM 100 MG CAPSULE PO SCH ×3 (13:43→20:10)
[2019-02-05] MEDS: ISOSORBIDE MONONITRATE 30 MG TABLET PO SCH (13:43)
[2019-02-05] MEDS: FERROUS SULFATE 325 MG TABLET PO SCH ×3 (13:43→20:03)
[2019-02-05] MEDS: POLYETHYLENE GLYCOL POWDER 17 GM PACK PO SCH (14:07)
[2019-02-05] MEDS ORDERED: DEXTROSE 50% 25 GM/50 ML VIAL IV PRN (14:50)
[2019-02-05] MEDS ORDERED: GLUCAGON 1 MG VIAL IM PRN (14:50)
[2019-02-05] MEDS: ROSUVASTATIN 20 MG TABLET PO SCH (20:03)
[2019-02-06] MEDS: ALBUTEROL/IPRATROPIUM 3 ML NEB RESP TX SCH ×4 (02:25→19:29)
[2019-02-06 04:56] LABS: Basophils % 0.6 % (0.0-0.8); Eosinophils # 0.1 10*3/uL (0.0-0.87); Eosinophils % 3.4 % (0.00-10.9); Hematocrit 20.6 VOL% (42.0-52.0); Immature Granulocytes % 0.6 %; Immature Granulocytes Absolute 0.02 #; Lymphocytes # 0.4 10*3/uL (1.4-4.0); Lymphocytes % 13.3 % (21.2-54.2); Mean Corpuscular HGB Conc 30.6 GM/DL (32-36); Mean Corpuscular Volume 98.6 FL (87-102); Mean Platelet Volume 10.6 FL (9.6-12.0); Monocytes % 9.9 % (1.7-12.7); Neutrophils % 72.2 % (38.7-73.9); Platelet Count 92 T/CUMM (130-400); Red Blood Count 2.09 MC/CUMM (3.8-5.5); Red Cell Distribution Width 20.4 % (9.3-17.3); White Blood Count 3.2 T/CUMM (4-12)
[2019-02-06 04:57] LABS: Hemoglobin 6.3 GM/DL (14.0-18.0)
[2019-02-06 05:25] LABS: Albumin 2.1 G/DL (3.4-5.0); Calcium 7.6 MG/DL (8.5-10.1); Osmolality,Calculated 297.1 MOS/KG (273-304); Total Protein 4.3 G/DL (6.4-8.3)
[2019-02-06 05:49] LABS: Anisocytosis 1+; Microcytosis 2+
[2019-02-06 05:50] LABS: Platelet Estimate Decreased; Polychromasia Slight
[2019-02-06] MEDS: FERROUS SULFATE 325 MG TABLET PO SCH ×3 (08:46→20:41)
[2019-02-06] MEDS: buPROPion SR 100 MG TABLET PO SCH ×2 (08:46→20:41)
[2019-02-06] MEDS: ISOSORBIDE MONONITRATE 30 MG TABLET PO SCH (08:47)
[2019-02-06] MEDS: PANTOPRAZOLE 40 MG TABLET PO SCH ×2 (08:47→20:41)
[2019-02-06] MEDS: CARVEDILOL 6.25 MG TABLET PO SCH ×2 (08:47→20:41)
[2019-02-06] MEDS: DOCUSATE SODIUM 100 MG CAPSULE PO SCH ×2 (08:47→20:41)
[2019-02-06] MEDS: INSULIN LISPRO 100 UNIT/ML SUBCUT SCH ×4 (10:39→20:42)
[2019-02-06] MEDS: POLYETHYLENE GLYCOL POWDER 17 GM PACK PO SCH (10:39)
[2019-02-06] MEDS: IRON SUCROSE 200 MG in SODIUM CHLORIDE 0.9% 100 ML IV SCH (14:38)
[2019-02-06 19:56] LABS: Hematocrit 21.3 VOL% (42.0-52.0); Hemoglobin 6.7 GM/DL (14.0-18.0)
[2019-02-06] MEDS: ROSUVASTATIN 20 MG TABLET PO SCH (20:41)
[2019-02-07 04:53] LABS: Albumin 2.1 G/DL (3.4-5.0); Bilirubin,Total 0.7 MG/DL (0.2-1.0); Calcium 7.4 MG/DL (8.5-10.1); Osmolality,Calculated 300.8 MOS/KG (273-304); Total Protein 4.2 G/DL (6.4-8.3)
[2019-02-07] MEDS: INSULIN LISPRO 100 UNIT/ML SUBCUT SCH ×4 (07:26→21:07)
[2019-02-07] MEDS: ALBUTEROL/IPRATROPIUM 3 ML NEB RESP TX SCH ×4 (08:24→19:10)
[2019-02-07] MEDS: ACETAMINOPHEN 325 MG TABLET PO PRN ×2 (09:26→22:49)
[2019-02-07] MEDS: CARVEDILOL 6.25 MG TABLET PO SCH ×2 (09:28→21:07)
[2019-02-07] MEDS: FERROUS SULFATE 325 MG TABLET PO SCH ×3 (09:28→21:07)
[2019-02-07] MEDS: DOCUSATE SODIUM 100 MG CAPSULE PO SCH ×2 (09:29→21:07)
[2019-02-07] MEDS: ISOSORBIDE MONONITRATE 30 MG TABLET PO SCH (09:29)
[2019-02-07] MEDS: PANTOPRAZOLE 40 MG TABLET PO SCH ×2 (09:29→21:06)
[2019-02-07] MEDS: IRON SUCROSE 200 MG in SODIUM CHLORIDE 0.9% 100 ML IV SCH (09:32)
[2019-02-07] MEDS: buPROPion SR 100 MG TABLET PO SCH ×2 (14:48→21:06)
[2019-02-07] MEDS: POLYETHYLENE GLYCOL POWDER 17 GM PACK PO SCH (14:48)
[2019-02-07] MEDS: ROSUVASTATIN 20 MG TABLET PO SCH (21:06)
[2019-02-08] MEDS: ALBUTEROL/IPRATROPIUM 3 ML NEB RESP TX SCH ×4 (01:00→18:50)
[2019-02-08] MEDS: INSULIN LISPRO 100 UNIT/ML SUBCUT SCH ×4 (07:52→22:38)
[2019-02-08] MEDS: POLYETHYLENE GLYCOL POWDER 17 GM PACK PO SCH (09:22)
[2019-02-08] MEDS: IRON SUCROSE 200 MG in SODIUM CHLORIDE 0.9% 100 ML IV SCH (09:22)
[2019-02-08] MEDS: DOCUSATE SODIUM 100 MG CAPSULE PO SCH ×2 (09:22→22:37)
[2019-02-08] MEDS: PANTOPRAZOLE 40 MG TABLET PO SCH ×2 (09:23→22:37)
[2019-02-08] MEDS: CARVEDILOL 6.25 MG TABLET PO SCH ×2 (09:23→22:37)
[2019-02-08] MEDS: FERROUS SULFATE 325 MG TABLET PO SCH ×3 (09:23→22:37)
[2019-02-08] MEDS: buPROPion SR 100 MG TABLET PO SCH ×2 (09:23→22:38)
[2019-02-08] MEDS: ISOSORBIDE MONONITRATE 30 MG TABLET PO SCH (09:23)
[2019-02-08] MEDS: NITROGLYCERIN SL 0.4 MG TABLET SL PRN ×2 (14:32→14:39)
[2019-02-08] MEDS: ONDANSETRON 4 MG/2 ML VIAL IV PRN (14:32)
[2019-02-08 15:49] LABS: Hematocrit 18.7 VOL% (42.0-52.0)
[2019-02-08 15:55] LABS: Hemoglobin 5.7 GM/DL (14.0-18.0)
[2019-02-08] MEDS ORDERED: MORPHINE 4 MG/1 ML VIAL IM ONE (16:32)
[2019-02-08] MEDS ORDERED: NITROGLYCERIN 2% OINT 1 INCH/GM PACK TOP ONE (16:32)
[2019-02-08] MEDS ORDERED: MORPHINE 4 MG/1 ML VIAL IV ONE (16:47)
[2019-02-08] MEDS: ROSUVASTATIN 20 MG TABLET PO SCH (22:37)
[2019-02-09] MEDS: ALBUTEROL/IPRATROPIUM 3 ML NEB RESP TX SCH ×4 (01:29→19:37)
[2019-02-09 07:40] LABS: Hematocrit 19.3 VOL% (42.0-52.0)
[2019-02-09 07:47] LABS: Hemoglobin 6.1 GM/DL (14.0-18.0)
[2019-02-09] MEDS ORDERED: SODIUM CHLORIDE 0.9% 1,000 ML IV PRN (08:09)
[2019-02-09] MEDS: IRON SUCROSE 200 MG in SODIUM CHLORIDE 0.9% 100 ML IV SCH (08:44)
[2019-02-09] MEDS: ISOSORBIDE MONONITRATE 30 MG TABLET PO SCH (08:45)
[2019-02-09] MEDS: buPROPion SR 100 MG TABLET PO SCH ×2 (08:45→22:30)
[2019-02-09] MEDS: DOCUSATE SODIUM 100 MG CAPSULE PO SCH ×2 (08:45→22:30)
[2019-02-09] MEDS: PANTOPRAZOLE 40 MG TABLET PO SCH ×2 (08:45→22:30)
[2019-02-09] MEDS: FERROUS SULFATE 325 MG TABLET PO SCH ×3 (08:46→22:30)
[2019-02-09] MEDS: ACETAMINOPHEN 325 MG TABLET PO PRN (08:49)
[2019-02-09] MEDS: NITROGLYCERIN SL 0.4 MG TABLET SL PRN (10:38)
[2019-02-09] MEDS: CARVEDILOL 6.25 MG TABLET PO SCH ×2 (11:09→22:31)
[2019-02-09] MEDS: INSULIN LISPRO 100 UNIT/ML SUBCUT SCH ×4 (11:09→22:36)
[2019-02-09] MEDS: POLYETHYLENE GLYCOL POWDER 17 GM PACK PO SCH (11:10)
[2019-02-09 19:52] LABS: Hematocrit 20.3 VOL% (42.0-52.0); Hemoglobin 6.5 GM/DL (14.0-18.0)
[2019-02-09] MEDS: ROSUVASTATIN 20 MG TABLET PO SCH (22:31)
[2019-02-10 05:55] LABS: Basophils % 0.8 % (0.0-0.8); Eosinophils # 0.2 10*3/uL (0.0-0.87); Eosinophils % 4.6 % (0.00-10.9); Hematocrit 19.9 VOL% (42.0-52.0); Immature Granulocytes % 0.3 %; Immature Granulocytes Absolute 0.01 #; Lymphocytes # 0.7 10*3/uL (1.4-4.0); Lymphocytes % 17.5 % (21.2-54.2); Mean Corpuscular HGB Conc 31.2 GM/DL (32-36); Mean Corpuscular Volume 96.6 FL (87-102); Mean Platelet Volume 10.2 FL (9.6-12.0); Monocytes % 8.9 % (1.7-12.7); Neutrophils % 67.9 % (38.7-73.9); Platelet Count 132 T/CUMM (130-400); Red Blood Count 2.06 MC/CUMM (3.8-5.5); Red Cell Distribution Width 21.1 % (9.3-17.3)
[2019-02-10 06:06] LABS: Calcium 7.7 MG/DL (8.5-10.1); Osmolality,Calculated 304.1 MOS/KG (273-304)
[2019-02-10 06:08] LABS: Hemoglobin 6.2 GM/DL (14.0-18.0)
[2019-02-10] MEDS: ALBUTEROL/IPRATROPIUM 3 ML NEB RESP TX SCH ×3 (07:42→13:50)
[2019-02-10] MEDS: buPROPion SR 100 MG TABLET PO SCH (09:16)
[2019-02-10] MEDS: PANTOPRAZOLE 40 MG TABLET PO SCH (09:16)
[2019-02-10] MEDS: CARVEDILOL 6.25 MG TABLET PO SCH (09:16)
[2019-02-10] MEDS: ISOSORBIDE MONONITRATE 30 MG TABLET PO SCH (09:16)
[2019-02-10] MEDS: DOCUSATE SODIUM 100 MG CAPSULE PO SCH (09:16)
[2019-02-10] MEDS: ACETAMINOPHEN 325 MG TABLET PO PRN (09:17)
[2019-02-10] MEDS: INSULIN LISPRO 100 UNIT/ML SUBCUT SCH ×2 (09:18→14:11)
[2019-02-10] MEDS: POLYETHYLENE GLYCOL POWDER 17 GM PACK PO SCH (09:18)
[2019-02-10] MEDS: FERROUS SULFATE 325 MG TABLET PO SCH (09:23)
[2019-02-10 12:04] VITALS: BP 145/67
[2019-02-10] MEDS: IRON SUCROSE 200 MG in SODIUM CHLORIDE 0.9% 100 ML IV SCH (14:12)
== END 2019-02-10 13:00 | disposition left against medical advice (07) | DRG 378 ==
LOC: EDUNIT# → EDBD → N.ED 19:06 → N.EDINP 19:06 → N.TELEN 01-28 00:34 → N.ICU 01-28 07:17 → SUATTDRO 01-28 08:44 → N.2E 01-30 13:57
PROVIDERS: ADMIT Internal Medicine Geriatric Medicine; ATTEND Internal Medicine

== ENCOUNTER 2019-02-10 23:19 | Inpatient (IN) ==
[2019-02-11 01:28] LABS: Basophils % 0.4 % (0.0-0.8); Eosinophils # 0.1 10*3/uL (0.0-0.87); Eosinophils % 2.2 % (0.00-10.9); Immature Granulocytes % 0.7 %; Immature Granulocytes Absolute 0.03 #; Lymphocytes # 0.6 10*3/uL (1.4-4.0); Mean Corpuscular HGB Conc 31.3 GM/DL (32-36); Mean Corpuscular Volume 97.6 FL (87-102); Mean Platelet Volume 9.9 FL (9.6-12.0); Monocytes % 6.8 % (1.7-12.7); Neutrophils % 76.9 % (38.7-73.9); Platelet Count 134 T/CUMM (130-400); White Blood Count 4.6 T/CUMM (4-12)
[2019-02-11 01:32] LABS: Hematocrit 16.6 VOL% (42.0-52.0); Hemoglobin 5.2 GM/DL (14.0-18.0)
[2019-02-11] MEDS ORDERED: SODIUM CHLORIDE 0.9% 1,000 ML IV PRN ×3 (01:37→13:43)
[2019-02-11 01:46] LABS: PT Patient Result 10.8 SECS; Partial Thromboplastin Time 23.7 SECS (0-40)
[2019-02-11 01:58] LABS: Alanine Aminotransferase 10 U/L (16-61); Albumin 2.1 G/DL (3.4-5.0); Alkaline Phosphatase 34 U/L (45-117); Aspartate Amino Transferase 10 U/L (0-37); Bilirubin,Total < 0.39 MG/DL (0.2-1.0); Blood Urea Nitrogen 69 MG/DL (7-18); Calcium 7.7 MG/DL (8.5-10.1); Glucose 161 MG/DL (74-106); Osmolality,Calculated 303.3 MOS/KG (273-304); Total Protein 4.2 G/DL (6.4-8.3)
[2019-02-11] MEDS ORDERED: ONDANSETRON 4 MG/2 ML VIAL IV PRN (03:26)
[2019-02-11] MEDS ORDERED: ACETAMINOPHEN 325 MG TABLET PO PRN (03:26)
[2019-02-11] MEDS ORDERED: GLUCAGON 1 MG VIAL IM PRN (05:03)
[2019-02-11] MEDS ORDERED: DEXTROSE 50% 25 GM/50 ML VIAL IV PRN (05:03)
[2019-02-11] MEDS: INSULIN REGULAR 100 UNIT/ML SUBCUT SCH ×4 (07:42→21:49)
[2019-02-11] MEDS: PANTOPRAZOLE 40 MG TABLET PO SCH (08:23)
[2019-02-11] MEDS ORDERED: INSULIN GLARGINE 100 UNIT/ML SUBCUT PRN (09:03)
[2019-02-11] MEDS ORDERED: NITROGLYCERIN SL 0.4 MG TABLET SL PRN (09:03)
[2019-02-11] MEDS ORDERED: DOCUSATE SODIUM 100 MG CAPSULE PO PRN (09:03)
[2019-02-11] MEDS ORDERED: FUROSEMIDE 40 MG/4 ML VIAL IV ONE (09:33)
[2019-02-11 13:15] LABS: Hematocrit 23.3 VOL% (42.0-52.0)
[2019-02-11 13:18] LABS: Hemoglobin 7.3 GM/DL (14.0-18.0)
[2019-02-11] MEDS: ALBUTEROL/IPRATROPIUM 3 ML NEB RESP TX SCH ×2 (13:45→20:05)
[2019-02-11] MEDS: FERROUS SULFATE 325 MG TABLET PO SCH ×2 (15:52→21:49)
[2019-02-11] MEDS: buPROPion SR 100 MG TABLET PO SCH (21:48)
[2019-02-11] MEDS: THEOPHYLLINE ER 300 MG TABLET PO SCH (21:48)
[2019-02-11] MEDS: ZALEPLON 5 MG CAPSULE PO PRN (21:49)
[2019-02-11] MEDS: ROSUVASTATIN 20 MG TABLET PO SCH (21:49)
[2019-02-11] MEDS: CARVEDILOL 3.125 MG TABLET PO SCH (21:51)
[2019-02-12 02:23] LABS: Alanine Aminotransferase < 9 U/L (16-61); Albumin 1.9 G/DL (3.4-5.0); Alkaline Phosphatase 32 U/L (45-117); Aspartate Amino Transferase 10 U/L (0-37); Blood Urea Nitrogen 66 MG/DL (7-18); Calcium 7.6 MG/DL (8.5-10.1); Glucose 101 MG/DL (74-106); Osmolality,Calculated 301.1 MOS/KG (273-304); Total Protein 3.9 G/DL (6.4-8.3)
[2019-02-12 02:30] LABS: Basophils % 0.6 % (0.0-0.8); Eosinophils # 0.1 10*3/uL (0.0-0.87); Eosinophils % 2.7 % (0.00-10.9); Hematocrit 25.3 VOL% (42.0-52.0); Hemoglobin 7.8 GM/DL (14.0-18.0); Immature Granulocytes Absolute 0.05 #; Lymphocytes # 0.9 10*3/uL (1.4-4.0); Lymphocytes % 18.1 % (21.2-54.2); Mean Corpuscular HGB Conc 30.8 GM/DL (32-36); Mean Corpuscular Volume 91.3 FL (87-102); Mean Platelet Volume 9.6 FL (9.6-12.0); Monocytes % 7.5 % (1.7-12.7); Neutrophils % 70.1 % (38.7-73.9); Platelet Count 118 T/CUMM (130-400); Red Blood Count 2.77 MC/CUMM (3.8-5.5); Red Cell Distribution Width 19.9 % (9.3-17.3); White Blood Count 4.8 T/CUMM (4-12)
[2019-02-12] MEDS: ALBUTEROL/IPRATROPIUM 3 ML NEB RESP TX SCH ×4 (03:29→19:59)
[2019-02-12] MEDS: INSULIN REGULAR 100 UNIT/ML SUBCUT SCH ×4 (08:03→20:45)
[2019-02-12] MEDS: CARVEDILOL 3.125 MG TABLET PO SCH ×2 (08:20→20:46)
[2019-02-12] MEDS: THEOPHYLLINE ER 300 MG TABLET PO SCH ×2 (08:20→20:46)
[2019-02-12] MEDS: amLODIPine 10 MG TABLET PO SCH (08:20)
[2019-02-12] MEDS: FERROUS SULFATE 325 MG TABLET PO SCH ×3 (08:20→20:46)
[2019-02-12] MEDS: buPROPion SR 100 MG TABLET PO SCH ×2 (08:20→20:46)
[2019-02-12] MEDS: PANTOPRAZOLE 40 MG TABLET PO SCH (08:20)
[2019-02-12 10:17] LABS: PT Patient Result 10.8 SECS; Partial Thromboplastin Time 23.8 SECS (0-40)
[2019-02-12 17:26] LABS: Hematocrit 24.7 VOL% (42.0-52.0); Hemoglobin 7.8 GM/DL (14.0-18.0)
[2019-02-12] MEDS: ROSUVASTATIN 20 MG TABLET PO SCH (20:46)
[2019-02-12] MEDS: ZALEPLON 5 MG CAPSULE PO PRN (20:56)
[2019-02-13] MEDS: ALBUTEROL/IPRATROPIUM 3 ML NEB RESP TX SCH ×4 (01:40→19:23)
[2019-02-13 05:41] LABS: Hematocrit 26.5 VOL% (42.0-52.0); Hemoglobin 8.2 GM/DL (14.0-18.0)
[2019-02-13] MEDS: FERROUS SULFATE 325 MG TABLET PO SCH ×3 (08:03→20:57)
[2019-02-13] MEDS: THEOPHYLLINE ER 300 MG TABLET PO SCH ×2 (08:03→20:57)
[2019-02-13] MEDS: CARVEDILOL 3.125 MG TABLET PO SCH ×2 (08:03→20:57)
[2019-02-13] MEDS: PANTOPRAZOLE 40 MG TABLET PO SCH (08:03)
[2019-02-13] MEDS: buPROPion SR 100 MG TABLET PO SCH ×2 (08:03→20:57)
[2019-02-13] MEDS: amLODIPine 10 MG TABLET PO SCH (08:03)
[2019-02-13] MEDS: INSULIN REGULAR 100 UNIT/ML SUBCUT SCH ×4 (08:03→20:58)
[2019-02-13 14:22] LABS: Hematocrit 26.6 VOL% (42.0-52.0); Hemoglobin 8.3 GM/DL (14.0-18.0)
[2019-02-13] MEDS: ZALEPLON 5 MG CAPSULE PO PRN (20:57)
[2019-02-13] MEDS: ROSUVASTATIN 20 MG TABLET PO SCH (20:57)
[2019-02-13 22:22] LABS: Hemoglobin 6.6 GM/DL (14.0-18.0)
[2019-02-14] MEDS: ALBUTEROL/IPRATROPIUM 3 ML NEB RESP TX SCH ×4 (00:08→19:35)
[2019-02-14] MEDS ORDERED: SODIUM CHLORIDE 0.9% 1,000 ML IV PRN ×2 (00:13→15:53)
[2019-02-14 02:32] LABS: Basophils % 0.5 % (0.0-0.8); Eosinophils # 0.1 10*3/uL (0.0-0.87); Eosinophils % 3.3 % (0.00-10.9); Hematocrit 21.4 VOL% (42.0-52.0); Hemoglobin 6.8 GM/DL (14.0-18.0); Immature Granulocytes % 0.5 %; Immature Granulocytes Absolute 0.02 #; Lymphocytes # 0.5 10*3/uL (1.4-4.0); Lymphocytes % 12.8 % (21.2-54.2); Mean Corpuscular HGB Conc 31.8 GM/DL (32-36); Mean Corpuscular Volume 94.7 FL (87-102); Monocytes % 6.4 % (1.7-12.7); Neutrophils % 76.5 % (38.7-73.9); Platelet Count 124 T/CUMM (130-400); Red Blood Count 2.26 MC/CUMM (3.8-5.5); Red Cell Distribution Width 21.6 % (9.3-17.3); White Blood Count 4.2 T/CUMM (4-12)
[2019-02-14 06:24] LABS: Hematocrit 21.3 VOL% (42.0-52.0); Hemoglobin 6.9 GM/DL (14.0-18.0)
[2019-02-14] MEDS: INSULIN REGULAR 100 UNIT/ML SUBCUT SCH ×4 (08:13→20:53)
[2019-02-14] MEDS: amLODIPine 10 MG TABLET PO SCH (08:34)
[2019-02-14] MEDS: CARVEDILOL 3.125 MG TABLET PO SCH ×2 (08:34→20:53)
[2019-02-14] MEDS: buPROPion SR 100 MG TABLET PO SCH ×2 (08:34→20:53)
[2019-02-14] MEDS: THEOPHYLLINE ER 300 MG TABLET PO SCH ×2 (08:34→20:53)
[2019-02-14] MEDS: FERROUS SULFATE 325 MG TABLET PO SCH ×3 (08:34→20:53)
[2019-02-14] MEDS: PANTOPRAZOLE 40 MG TABLET PO SCH (08:34)
[2019-02-14 11:26] LABS: Hematocrit 28.7 VOL% (42.0-52.0)
[2019-02-14 13:42] LABS: Hematocrit 24.8 VOL% (42.0-52.0); Hemoglobin 7.9 GM/DL (14.0-18.0)
[2019-02-14] MEDS ORDERED: FUROSEMIDE 40 MG/4 ML VIAL IV ONE (18:44)
[2019-02-14] MEDS: ZALEPLON 5 MG CAPSULE PO PRN (20:53)
[2019-02-14] MEDS: ROSUVASTATIN 20 MG TABLET PO SCH (20:53)
[2019-02-15] MEDS: ALBUTEROL/IPRATROPIUM 3 ML NEB RESP TX SCH ×4 (00:40→19:23)
[2019-02-15 01:35] LABS: Hematocrit 30.1 VOL% (42.0-52.0); Hemoglobin 9.8 GM/DL (14.0-18.0)
[2019-02-15 05:59] LABS: Hematocrit 26.9 VOL% (42.0-52.0); Hemoglobin 8.9 GM/DL (14.0-18.0)
[2019-02-15] MEDS: INSULIN REGULAR 100 UNIT/ML SUBCUT SCH ×4 (07:47→20:55)
[2019-02-15] MEDS: PANTOPRAZOLE 40 MG TABLET PO SCH (08:41)
[2019-02-15] MEDS: amLODIPine 10 MG TABLET PO SCH (08:41)
[2019-02-15] MEDS: FERROUS SULFATE 325 MG TABLET PO SCH ×3 (08:41→20:55)
[2019-02-15] MEDS: THEOPHYLLINE ER 300 MG TABLET PO SCH ×2 (08:41→20:55)
[2019-02-15] MEDS: buPROPion SR 100 MG TABLET PO SCH ×2 (08:41→20:55)
[2019-02-15] MEDS: CARVEDILOL 3.125 MG TABLET PO SCH ×2 (08:41→20:55)
[2019-02-15] MEDS: ZALEPLON 5 MG CAPSULE PO PRN (20:55)
[2019-02-15] MEDS: ROSUVASTATIN 20 MG TABLET PO SCH (20:55)
[2019-02-16] MEDS: ALBUTEROL/IPRATROPIUM 3 ML NEB RESP TX SCH ×4 (00:16→18:55)
[2019-02-16] MEDS: INSULIN REGULAR 100 UNIT/ML SUBCUT SCH ×4 (09:04→20:44)
[2019-02-16] MEDS: PANTOPRAZOLE 40 MG TABLET PO SCH (09:05)
[2019-02-16] MEDS: amLODIPine 10 MG TABLET PO SCH (09:05)
[2019-02-16] MEDS: THEOPHYLLINE ER 300 MG TABLET PO SCH ×2 (09:05→20:44)
[2019-02-16] MEDS: FERROUS SULFATE 325 MG TABLET PO SCH ×3 (09:06→20:44)
[2019-02-16] MEDS: CARVEDILOL 3.125 MG TABLET PO SCH ×2 (09:06→20:44)
[2019-02-16] MEDS: buPROPion SR 100 MG TABLET PO SCH ×2 (09:28→20:44)
[2019-02-16] MEDS ORDERED: SODIUM CHLORIDE 0.9% 1,000 ML IV PRN ×2 (11:20→11:25)
[2019-02-16 20:27] LABS: Hemoglobin 9.3 GM/DL (14.0-18.0)
[2019-02-16] MEDS: ROSUVASTATIN 20 MG TABLET PO SCH (20:44)
[2019-02-16] MEDS: ZALEPLON 5 MG CAPSULE PO PRN (20:44)
[2019-02-17] MEDS: ALBUTEROL/IPRATROPIUM 3 ML NEB RESP TX SCH ×4 (02:46→19:32)
[2019-02-17] MEDS: buPROPion SR 100 MG TABLET PO SCH ×2 (08:05→20:13)
[2019-02-17] MEDS: THEOPHYLLINE ER 300 MG TABLET PO SCH ×2 (08:05→20:13)
[2019-02-17] MEDS: INSULIN REGULAR 100 UNIT/ML SUBCUT SCH ×3 (08:05→15:45)
[2019-02-17] MEDS: FERROUS SULFATE 325 MG TABLET PO SCH ×3 (08:05→20:12)
[2019-02-17] MEDS: CARVEDILOL 3.125 MG TABLET PO SCH ×2 (08:05→20:12)
[2019-02-17] MEDS: amLODIPine 10 MG TABLET PO SCH (08:05)
[2019-02-17] MEDS: PANTOPRAZOLE 40 MG TABLET PO SCH (08:05)
[2019-02-17] MEDS ORDERED: fentaNYL 100 MCG/2 ML VIAL IV ONE (10:32)
[2019-02-17] MEDS ORDERED: MIDAZOLAM 2 MG/2 ML VIAL IV ONE (10:32)
[2019-02-17] MEDS ORDERED: ceFAZolin 1,000 MG in SYRINGE 1 EACH IV ONE (11:00)
[2019-02-17 11:25] LABS: Hemoglobin 9.2 GM/DL (14.0-18.0)
[2019-02-17] MEDS ORDERED: FUROSEMIDE 40 MG/4 ML VIAL IV ONE (12:00)
[2019-02-17] MEDS ORDERED: fentaNYL 100 MCG/2 ML VIAL ONE (12:53)
[2019-02-17] MEDS ORDERED: MIDAZOLAM 2 MG/2 ML VIAL ONE (12:53)
[2019-02-17] MEDS ORDERED: HEPARIN/NACL 0.9% 2 UNITS/ML 2,000 ML IV ONE (12:55)
[2019-02-17] MEDS: ROSUVASTATIN 20 MG TABLET PO SCH (20:12)
[2019-02-17] MEDS: ZALEPLON 5 MG CAPSULE PO PRN (20:17)
[2019-02-18] MEDS: ALBUTEROL/IPRATROPIUM 3 ML NEB RESP TX SCH ×3 (01:00→12:35)
[2019-02-18] MEDS: INSULIN REGULAR 100 UNIT/ML SUBCUT SCH ×3 (01:57→11:01)
[2019-02-18 05:17] LABS: Basophils % 0.9 % (0.0-0.8); Eosinophils # 0.1 10*3/uL (0.0-0.87); Eosinophils % 3.4 % (0.00-10.9); Hematocrit 28.9 VOL% (42.0-52.0); Hemoglobin 9.1 GM/DL (14.0-18.0); Immature Granulocytes % 0.6 %; Immature Granulocytes Absolute 0.02 #; Lymphocytes # 0.3 10*3/uL (1.4-4.0); Lymphocytes % 10.5 % (21.2-54.2); Mean Corpuscular HGB Conc 31.5 GM/DL (32-36); Mean Corpuscular Volume 94.8 FL (87-102); Mean Platelet Volume 9.5 FL (9.6-12.0); Monocytes % 10.5 % (1.7-12.7); Neutrophils % 74.1 % (38.7-73.9); Platelet Count 90 T/CUMM (130-400); Red Blood Count 3.05 MC/CUMM (3.8-5.5); Red Cell Distribution Width 18.9 % (9.3-17.3); White Blood Count 3.3 T/CUMM (4-12)
[2019-02-18 05:45] LABS: Eosinophils 6 % (0-10); Lymphocytes 6 % (20-55); Segmented Neutrophils 82 % (50-85); Total Cells Counted 100
[2019-02-18 05:46] LABS: Anisocytosis 1+; Microcytosis 1+; Polychromasia Slight
[2019-02-18 05:48] LABS: Platelet Estimate Decreased
[2019-02-18 05:51] LABS: Osmolality,Calculated 290.7 MOS/KG (273-304)
[2019-02-18] MEDS: FERROUS SULFATE 325 MG TABLET PO SCH (08:38)
[2019-02-18] MEDS: CARVEDILOL 3.125 MG TABLET PO SCH (08:38)
[2019-02-18] MEDS: PANTOPRAZOLE 40 MG TABLET PO SCH (08:39)
[2019-02-18] MEDS: buPROPion SR 100 MG TABLET PO SCH (08:39)
[2019-02-18] MEDS: THEOPHYLLINE ER 300 MG TABLET PO SCH (08:39)
[2019-02-18] MEDS: amLODIPine 10 MG TABLET PO SCH (08:39)
[2019-02-18 11:01] LABS: Hematocrit 31.7 VOL% (42.0-52.0); Hemoglobin 10.1 GM/DL (14.0-18.0)
[2019-02-18 12:10] VITALS: BP 135/51
== END 2019-02-18 12:20 | disposition home health service (06) | DRG 378 ==
LOC: EDUNIT# → EDBD → N.ED 23:19 → N.EDINP 02-11 03:26 → SUATTDRO 02-11 03:26 → N.5E 02-11 04:33
PROVIDERS: ADMIT Internal Medicine; ATTEND Internal Medicine
PROC: IRAGMES (2019-02-17 13:13)